=== PATIENT | male | born 2000 | race African-American/Black ===

== ENCOUNTER 2021-02-25 14:21 | Emergency (ER) | payer OTHER, SELFPAY ==
--- OUTSIDE RECORDS SUMMARY | 2021-02-25 14:29 | XMS REPORT | Continuity of Care Document ---
:2000 Author Organization [facility] t Address [address] [place] [address] Care Team Providers Name Role Phone NO Primary Care Physician Unavailable Zhao Attending Clinician [phone] Vianey Attending Clinician Unavailable Gita Attending Clinician [phone] Constantin Attending Clinician [phone] Mina Attending Clinician Unavailable Lorena Attending Clinician [phone] Oskar Attending Clinician Unavailable Hitesh Attending Clinician Unavailable Zain Attending Clinician [phone] Beck Attending Clinician Unavailable Jono Attending Clinician Unavailable Sharonda Attending Clinician Unavailable Paul KULKARNI Attending Clinician Unavailable Zhao Unavailable [phone] Gita Unavailable [phone] Zain Unavailable [id number] Payers Payer Name Policy Type Policy Number Effective Date Expiration Date Paul garza Gerardo Ray 11 [id number] 2020 2021 [facility] 0- 100% 00:00:00 00:00:00 Community Health Problems Condition Condition Condition Status Onset Resolution Last Treating Co mments Source Name Details Category Date Date Treatment Clinician Date Screening Condition Active 2020-12-17 Dante Churchill for std 12-17 12:11:47 Ralphelia Commun i 00:00: ty 00 Health Anal pain Condition Active 2020-12-17 Dante Churchill - 20:06:07 Chiquis Marcumi 00:00: ty 00 Health Overweight Condition Active 2020-12-17 ZhaoDante (BMI 5-10 20:10:48 [facility] 00:00: ty 00 Health Anal Condition Active 2020-12-17 Zhao Leg acy ulcers 5-10 20:10:48 Arbelia Communi 00:00: ty 00 Health Immunizati Condition Active 2020-10-03 Joey Pelayoacy on 10-03 19:01:10 Rebeca Commu ni counseling 00:00: ty 00 Health Lymphadeno Condition Active 2020-10-05 [place], [facility] adali 10-03 05:26:41 Rebeca Commu ni 00:00: ty 00 Health HIV Condition Active 2020-08-20 Tiffanie Pittman gacy positive 08-20 15:21:12 Shima Commu ni 00:00: ty 00 Health Macular Condition Active 2020-08-20 Keyanna Pittman egacy erythemato 08-15 11:59:45 Shima gutiérrezi us rash 00:00: ty 00 Health Proctitis Problem Active [facility] St [facility] Vomiting Problem Active [facility] Lymphadeno Problem Active [facility] S t. adali [facility] Dermatitis Problem Active [facility] S t. medicament [facility] Allergies, Adverse Reactions, Alerts Allergy Allergy Status Severity Reaction(s) Onset Inactive Treating Comm ents Source Name Type Date Date Clinician AMOXICIL Drug Active High Dante MONI allergy Criticali 1-15 Commun i (disorde ty 00:00: ty r) 00 Health amoxicil DA Active [place] 2019-08 [facility] moni 2-29 [place] [facility] e [facility] No Known DA Active U 2019-08 [facility] Allergie 2-28 [place] [facility] 00:[facility] e 00 [facility] Social History Social Habit Start Date Stop Date Quantity Comments Source time of call 2020-12-20 2020-12-20 12/20/2020 12:17 [facility] 12:17:27 12:17:27 PM Health albumin, serum 2020-12-19 2020-12-19 4.4 g/dL [facility]unity 10:32:00 10:32:00 Health if the patient is 2020-12-17 2020-12-17 No [facility] using/has used a 11:26:26 11:26:26 Health vaping item, Current, Former, Never Used, Not asked drug use 2020-12-17 2020-12-17 Never [facility] ty 11:26:26 11:26:26 Health alcohol use 2020-12-17 2020-12-17 Currently [facility] ity 11:26:26 11:26:26 Health passive cigarette 2020-12-17 2020-12-17 No [facility] smoke exposure 11:26:26 11:26:26 Health social history 2020-12-17 2020-12-17 reviewed today [facility] reviewed E&M 11:26:26 11:26:26 Health social history E&M 2020-12-17 2020-12-17 Single. Not [facility] 11:26:26 11:26:26 homeless. Born Health in [facility]. City: [place] . State: [place]. 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 Highest education level: high school graduate. Sex at : Male. Sexual orientation: River. Gender identity: Male. Gender of partner(s): Male. Age of first sexual intercourse: 18. Sexually Active: Yes. sexual orientation 2020-12-17 2020-12-17 River [facility] 11:26:26 11:26:26 Health assessment of health 2020-12-17 2020-12-17 Adequate Lega cy Community literacy (NCQA [facility] 11:26:26 11:26:26 [facility] 2014 Standards, 3C10) PHQ2 Questionairre 2020-12-17 2020-12-17 [facility] Score 11:26:26 11:26:26 Health is there any chance 2020-10-03 2020-10-03 No [facility] Community that you could be 18:03:41 18:03:41 Health ? 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 Dante C ommunity 10:15:42 10:15:42 Health sex at 2020-08-24 2020-08-24 Male [facility] nity 10:15:42 10:15:42 Health patient considered to 2020-08-24 2020-08-24 No Leg acy Community be homeless 10:15:42 10:15:42 Health Sex Assigned At [birth year] [facility] Smoking Status Start Date Stop Date Source [facility] smoked tobacco (finding[facility] Medications Ordered Filled Start Stop Current Ordering Indication Dosage Frequency Signature Comments Components Source Medication Medication Date Date Medication? Clinician (SIG) Name Name VALTREX Yes Arbelia 1 3xD 1 tablet Leg acy (VALACYCLOV 5-14 Zhao by mouth 3 C ommuni IR HCL) 1 00:00: times ty GM TABS 00 daily for Health 7 days VALTREX Yes Arbelia 1 3xD 1 tablet Leg [facility] (VALACYCLOV 5-10 Zhao by mouth 3 C ommuni IR HCL) 1 00:00: times ty GM TABS 00 daily for Health 7 days (DOXYCYCLIN Yes Arbelia 1 2xD 1 capsule [facility] E 5-10 Zhao by mouth Communi MONOHYDRATE 00:00: twice ty ) 100 MG 00 daily x 7 Health CAPS days BIKTARVY Yes Rebeca 1{Table 1xD Take 1 tab [facility] (BICTEGRAVI 1-15 [place] t} by mouth Co mmuni R-EMTRICITA 00:00: daily ty B-TENOFOV) 00 Health 50-200-25 MG TABS (HYDROXYZIN 2020- No Shima 1{Table 3xD 1 by mouth [facility] E HCL) 50 1-06 02-05 Zain t} three Commun i MG TABS 00:00: 00:00 times a ty 00 :00 day as Health needed for itching Doxycycline Doxycycline 2019-08 Yes [address] [facility] Hyclate Hyclate 2-08 Day - 04:06: Patient 00 [facility] Immunizations Ordered Immunization Filled Immunization Date Status Commen ts Source Name Name Prevnar 13 IM 2020-10-03 Completed [facility] unity [id number] 19:17:00 Health Engerix-B IM 20 2020-10-03 Completed [facility] mmunity MCG/ML 19:15:00 [id number] Vital Signs Vital Name Observation Time Observation Value Comments Source height in 2020-12-17 11:26:26 170.18 cm [facility] centimeters E&M Health height percentile 2020-12-17 11:26:26 18 [facility] weight E&M 2020-12-17 11:26:26 174 [lb_av] On license of [facility] weight percentile 2020-12-17 11:26:26 76 [facility] weight in kilograms 2020-12-17 11:26:26 79.09 kg L [facility] E& Health oxygen saturation, 2020-12-17 11:26:26 96 /min [facility] oximetry Health blood pressure, 2020-12-17 11:26:26 53 mm[Hg] [facility] diastolic [facility] blood pressure, 2020-12-17 11:26:26 125 mm[Hg] [facility] systolic Health respiratory rate E&M 2020-12-17 11:26:26 16 /min [facility] pulse rate 2020-12-17 11:26:26 70 /min On license of [facility] temperature E&M 2020-12-17 11:26:26 98.0 [degF] [facility] 2020-12-17 11:26:26 oral [facility] temperature site 2020-10-03 18:03:41 oral [facility] temperature E&M 2020-10-03 18:03:41 97.0 [degF] [facility] blood pressure, 2020-10-03 18:03:41 69 mm[Hg] Legac [facility] diastolic Health blood pressure, 2020-10-03 18:03:41 123 mm[Hg] [facility] systolic Health pulse rate 2020-10-03 18:03:41 76 /min On license of [facility] oxygen saturation, 2020-10-03 18:03:41 96 /min [facility] Health weight E&M 2020-10-03 18:03:41 172.50 [lb_av] [facility] weight percentile 2020-10-03 18:03:41 76 [facility] weight in kilograms 2020-10-03 18:03:41 78.41 kg L [facility] Health height in 2020-10-03 18:03:41 170.18 [facility] centimeters E& Health height percentile 2020-10-03 18:03:41 18 Leg [facility] height in 2020-08-24 10:15:42 170.18 [facility] centimeters E Health height percentile 2020-08-24 10:15:42 18 Leg [facility] oxygen saturation, 2020-08-24 10:15:42 98 /min [facility] Health blood pressure, 2020-08-24 10:15:42 78 mm[Hg] [facility] diastolic Health blood pressure, 2020-08-24 10:15:42 125 mm[Hg] Leg[facility] systolic Health pulse rate 2020-08-24 10:15:42 74 /min [facility] Health temperature E&M 2020-08-24 10:15:42 98.0 [degF] Leg[facility] Health weight E&M 2020-08-24 10:15:42 159 [lb_av] [facility] weight percentile 2020-08-24 10:15:42 60 Leg [facility] weight in kilograms 2020-08-24 10:15:42 72.27 kg L [facility] temperature site 2020-08-24 10:15:42 oral [facility] oxygen saturation, 2020-08-20 11:42:10 98 /min [facility] Health blood pressure, 2020-08-20 11:42:10 77 mm[Hg] Leg[facility] diastolic Health blood pressure, 2020-08-20 11:42:10 123 mm[Hg] Leg[facility] systolic Health respiratory rate E&M 2020-08-20 11:42:10 16 /min [facility] Health pulse rate 2020-08-20 11:42:10 90 /min [facility] Health temperature E&M 2020-08-20 11:42:10 98.3 [degF] Leg[facility] Health weight E&M 2020-08-20 11:42:10 157 [lb_av] [facility] Health weight percentile 2020-08-20 11:42:10 57 Leg [facility] weight in kilograms 2020-08-20 11:42:10 71.36 kg L [facility] height in 2020-08-20 11:42:10 170.18 cm [facility] centimeters [facility] height percentile 2020-08-20 11:42:10 18 Leg [facility] temperature site 2020-08-20 11:42:10 oral Lega cy [facility] oxygen saturation, 2020-08-15 15:03:43 97 /min [facility] oximetry Health respiratory rate E&M 2020-08-15 15:03:43 18 /min [facility] pulse rate 2020-08-15 15:03:43 109 /min [facility] temperature E&M 2020-08-15 15:03:43 98.8 [degF] [facility] weight E&M 2020-08-15 15:03:43 150 [lb_av] [facility] weight percentile 2020-08-15 15:03:43 45 Leg [facility] weight in kilograms 2020-08-15 15:03:43 68.18 kg L [facility] temperature site 2020-08-15 15:03:43 oral Lega cy [facility] Oxygen saturation by 2020-08-07 11:07:00 99 /min [facility] - Pulse oximetry Patients [facility] Weight 2020-08-07 11:07:00 160 [lb_av] [facility] - Patients [facility] BMI (Body Mass 2020-08-07 11:07:00 24.3 kg/m2 [facility] - Index) Patients [facility] Oxygen saturation by 2020-07-27 11:06:00 100 /min [facility] - Pulse oximetry Patients [facility] Weight 2020-07-27 11:06:00 160 [lb_av] [facility] BMI (Body Mass 2020-07-27 11:06:00 24.3 kg/m2 [facility] - Index) Patients [facility] Body Temperature 2020-07-17 03:58:00 99.0 [degF] [facility] - Patients [facility] Heart Rate 2020-07-17 03:58:00 67 /min [facility] Patients [facility] Respiratory rate 2020-07-17 03:58:00 19 /min [facility] - Patients [facility] BP Systolic 2020-07-17 03:58:00 106 mm[Hg] [facility] - Patients [facility] BP Diastolic 2020-07-17 03:58:00 46 mm[Hg] [facility] - Patients [facility] Oxygen saturation by 2020-07-17 03:58:00 98 /min [facility] - Pulse oximetry Patients [facility] Weight 2020-07-17 00:59:00 160 [lb_av] [facility] BMI (Body Mass 2020-07-17 00:59:00 24.3 kg/m2 [facility] - Index) Patients [facility] Procedures Procedure Date / Time Performing Clinician Source Performed Injection, ceftriaxone 2020-12-17 12:12:44 Chiquis Churchill y [facility] sodium, per 500 mg Health Venipuncture 2020-12-17 12:09:04 Chiquis Churchill [facility] 2020-10-26 09:41:46 Ender Francis [place] m[place]ity Education/Supportive Health Counseling Primary Care Medical 2020-10-10 14:36:52 Traci Krishnamurthy [facility] Medical 2020-10-10 09:08:16 Traci Krishnamurthy [facility] Primary Care - Service 2020-10-06 14:08:33 Traci Krishnamurthy y Community Planning [facility] Primary Care - 2020-10-06 14:08:33 Traci Krishnamurthy [facility] Health [facility] Primary Care Medical 2020-10-06 14:08:33 [facility] Case Management [facility] Addl Vx - Ix admin via 2020-10-03 19:16:13 Rebeca Pelayo ID IM or jet injects Health without counseling by physician Prevnar 13 Intramuscular 2020-10-03 19:16:13 Rebeca Pelayo evelia [facility] Suspension Health First Vx - Ix admin via 2020-10-03 19:16:13 JacquesivoryRebeca burnette Tiffanie martin [facility] ID IM or jet injects Health without counseling by physician Engerix-B Injection 2020-10-03 19:13:17 Rebeca Pelayo [facility] Suspension 20 MCG/ML Health Vaccines Ordered - Print 2020-10-03 18:53:47 Rebeca Pelayo evelia [facility] Consent/Declination Health Forms Vision 2020-10-03 18:52:19 Rebeca Pelayo Com munity Health Dental - Internal 2020-10-03 18:51:33 Rebeca Pelayo C ommunity [facility] Health 2020-10-03 08:48:25 Ender Francis [place] mmunity Education/Supportive Health Counseling Primary Care Medical 2020-10-02 09:45:[address] [facility] Primary Care Medical 2020-09-28 14:58:33 Funmilayo Landrum [facility] Case [facility] Health Meeting with Case Manger 2020-09-26 17:09:57 [facility] 2020-08-24 12:30:21 Provider, [facility] Education/Supportive Health Services Health Counseling Venipuncture 2020-08-24 10:52:59 Chiquis Churchill [facility] Health 2020-08-21 15:57:45 Ender Francis [facility] Education/Supportive Health Counseling Health 2020-08-21 09:21:39 Ender Francis [facility] Education/Supportive Health Counseling HIV Navigation 2020-08-20 15:17:10 Shima Pittman [facility] Venipuncture 2020-08-15 15:53:58 Shima Pittman [facility] Computed tomography of 2020-07-17 00:00:00 RENITA Maradiaga - abdomen and pelvis with Patients Medical contrast Center Plan of Care Planned Activity Planned Date Details Comments Source Instructions Allergic Reaction [facility] Encounters Start End Encounter Admission Attending Care Care Encounter Source Date/Time Date/Time Type Type Clinicians Facility Department ID 2020-12-17 2020-12-17 Office Chiquis Churchill [facility] [id number] [facility] 00:00:00 00:00:00 Visit Valentine Winters [id number] [facility] 2020-10-03 2020-10-05 Office Rebeca Pelayo [facility] [id number] [facility] 00:00:00 00:00:00 [facility] [id number] [facility] Gia Schmitt 2020-08-24 2020-08-24 Office Chiquis Churchill [facility] [phone] [facility] 00:00:00 00:00:00 Visit Sujit Proctor [id number] [facility] 2020-08-20 2020-08-20 Office Shima Pittman [facility] [id number] [facility] 00:00:00 [facility]00[facility] 11 [facility] Nirmal [facility] 2020-08-15 2020-08-17 Office Shima Pittman [facility] [id number] [facility] 00:00:00 00:00:00 Visit Ivonne Mcdonough [address] [facility] 2020-08-07 2020-08-07 Departed [facility] [id number] 11:23:00 12:06:00 Emergency Patients 87 [facility] - Room [facility] 2020-07-27 2020-07-27 Departed [facility] [id number] 10:58:00 11:20:00 Emergency Patients 91 [facility] - Room [facility] 2020-07-17 2020-07-17 [facility] [id number] 01:14:00 04:19:00 Emergency AMBICA Patients 49 [facility] - Room [facility] Results Test Description Test Time Test Comments Results Result Comments Source sodium, serum 2020-12-19 10:32:00 Test Item Value Reference Range Interpretation Comme nts sodium, serum (test code = 2951-2) 139 mmol/L 134-144 [facility] nitrogen/creatinine ratio, [id number] 10:32:00 Test Item Value Reference Range Interpretation Comments urea nitrogen/creatinine 12 (unknown unit) 9-20 ratio, serum (test code = 3097-3) [facility]axhaweGFR if [id number] 10:32:00 Test Item Value Reference Range Interpretation Comments eGFR if 120 mL/min/{1.73 m2} >59 (test code = 46965-2) [facility]haw[facility] Glomerular Filtration Rate (calc)2020-12-19 10:32:00 Test Item Value Reference Range Interpretation Comments Estimated Glomerular 104 mL/min/{1.73 m2} >59 Filtration Rate (calc) (test code = 68630-9) [facility]creatinine, [id number] 10:32:00 Test Item Value Reference Range Interpretation Comments creatinine, serum (test code = 1.04 mg/dL 0.76-1.27 2160-0) [facility] nitrogen, [id number] 10:32:00 Test Item Value Reference Range Interpretation Comments urea nitrogen, blood (test code = 12 mg/dL 6-20 3094-0) [facility] glucose, [id number] 10:32:00 Test Item Value Reference Range Interpretation Comments blood glucose, random (test code = 89 mg/dL 65-99 2339-0) [facility]hawimmature granulocytes, percentage of total cells, blood 2020-12-19 10:32:00 Test Item Value Reference Range Interpretation Comments immature granulocytes, percentage of 0 % total cells, blood (test code = 33930-7) [facility]hawbasophil count, [id number] 10:32:00 Test Item Value Reference Range Interpretation Comments basophil count, absolute (test 0.0 x10E3/uL 0.0-0.2 code = 88938-6) [facility]axhawEosinophil Absolute [id number] 10:32:00 Test Item Value Reference Range Interpretation Comments Eosinophil Absolute Count (test 0.2 X10E3/UL 0.0-0.4 code = 25038-8) [facility] Healthmonocyte count, blood, [id number] 10:32:00 Test Item Value Reference Range Interpretation Comments monocyte count, blood, automated 0.4 X10E3/UL 0.1-0.9 (test code = 742-7) [facility]haw[facility]ocyte count, blood, [id number] 10:32:00 Test Item Value Reference Range Interpretation Comments lymphocyte count, blood, 1.1 X10E3/UL 0.7-3.1 automated (test code = 731-0) [facility]haw[facility] [id number] 10:32:00 Test Item Value Reference Range Interpretation Comments Absolute Neutrophils (test code 2.8 X10E3/UL 1.4-7.0 = 39707-5) [facility]haw[facility]ophils as percent of blood [id number] 10:32:00 Test Item Value Reference Range Interpretation Comments basophils as percent of blood 0 % leukocytes (test code = 707-0) [facility]ophils as percent of blood [id number] 10:32:00 Test Item Value Reference Range Interpretation Comments eosinophils as percent of blood 3 % leukocytes (test code = 713-8) [facility] Healthmonocytes as percent of blood [id number] 10:32:00 Test Item Value Reference Range Interpretation Comments monocytes as percent of blood 9 % leukocytes (test code = 5905-5) [facility]haw[facility]ocytes as percent of blood [id number] 10:32:00 Test Item Value Reference Range Interpretation Comments lymphocytes as percent of blood 25 % leukocytes (test code = 736-9) [facility]hawneutrophils as percent of blood [id number] 10:32:00 Test Item Value Reference Range Interpretation Comments neutrophils as percent of blood 63 % leukocytes (test code = 770-8) [facility]axhawplatelet [id number] 10:32:00 Test Item Value Reference Range Interpretation Comments platelet count (test code = 208 X10E3/UL 150-450 777-3) [facility]hawred blood cell distribution [id number] 10:32:00 Test Item Value Reference Range Interpretation Comments red blood cell distribution width 12.8 % 11.6-15.4 (test code = 788-0) [facility] corpuscular hemoglobin concentration, [id number] 10:32:00 Test Item Value Reference Range Interpretation Comments mean corpuscular hemoglobin 34.9 G/DL 31.5-35.7 concentration, RBC (test code = 786-4) [facility] corpuscular hemoglobin, [id number] 10:32:00 Test Item Value Reference Range Interpretation Comments mean corpuscular hemoglobin, RBC 31.6 pg 26.6-33.0 (test code = 785-6) [facility] corpuscular volume, [id number] 10:32:00 Test Item Value Reference Range Interpretation Comments mean corpuscular volume, RBC (test code 91 fL 79-97 = 787-2) [facility]haw[facility]ocrit, [id number] 10:32:00 Test Item Value Reference Range Interpretation Comments hematocrit, blood (test code = 4544-3) 45.5 % 37.5-51.0 [facility]hawhemoglobin, [id number] 10:32:00 Test Item Value Reference Range Interpretation Comments hemoglobin, blood (test code = 15.9 g/dL 13.0-17.7 718-7) [facility]hawerythrocyte (RBC) [id number] 10:32:00 Test Item Value Reference Range Interpretation Comments erythrocyte (RBC) count (test 5.03 X10E6/UL 4.14-5.80 code = 789-8) [facility]hawleukocyte count, [id number] 10:32:00 Test Item Value Reference Range Interpretation Comments leukocyte count, blood (test 4.5 X10E3/UL 3.4-10.8 code = 6690-2) [facility]axhawCD4/CD8 [id number] 10:32:00 Test Item Value Reference Range Interpretation Comments CD4/CD8 ratio (test code 1.09 (unknown unit) 0.92-3.72 = 79255) [facility]axhawT-suppressor cells (CD8) as percent of blood lymphocytes 2020-12-19 10:32:00 Test Item Value Reference Range Interpretation Comments T-suppressor cells (CD8) as percent of 35.2 % 12.0-35.5 blood lymphocytes (test code = 3517) [facility] Healthabsolute [id number] 10:32:00 Test Item Value Reference Range Interpretation Comments absolute CD8 (test code = 387 (unknown unit) [phone]) [facility]hawT-helper cells (CD4) as percent of blood lymphocytes 2020-12-19 10:32:00 Test Item Value Reference Range Interpretation Comments T-helper cells (CD4) as percent of 38.5 % 30.8-58.5 blood lymphocytes (test code = 8123-2) [facility]hawT-helper cells (CD4) [id number] 10:32:00 Test Item Value Reference Range Interpretation Comments T-helper cells (CD4) count (test code 424 /UL 359-4365 = 61336-5) [facility]axhawhepatitis B surface [id number] 10:32:00 Test Item Value Reference Range Interpretation Comments hepatitis B surface antigen (test Negative Negative code = 79) Count Includes The [facility] [facility], pcife2507-16-26 10:32:00 Test Item Value Reference Range Interpretation Comments hepatitis C antibody, serum (test code <0.1 0.0-0.9 = 5199-5) [facility] reagin antibody, [id number] 10:32:00 Test Item Value Reference Range Interpretation Comments rapid plasma reagin antibody, Non Reactive Non Reactive serum (test code = 5291-0) [facility]hawHIV-1RNA, serum, by PCR, whqezfqxzydo1585-79-96 10:32:00 Test Item Value Reference Range Interpretation Comments HIV-1RNA, serum, by PCR, quantitative 140 /mL (test code = 92618) [facility]hawLDL cholesterol, zrxnf1268-97-06 10:32:00 Test Item Value Reference Range Interpretation Comments LDL cholesterol, serum (test code = 88 mg/dL 0-109 2088-1) [facility] [place] low density axulhphbofoi6185-19-05 10:32:00 Test Item Value Reference Range Interpretation Comments very low density lipoproteins (test 12 mg/dL 5-40 code = 2091-7) [facility]HDL cholesterol, oewjg1164-21-21 10:32:00 Test Item Value Reference Range Interpretation Comments HDL cholesterol, serum (test code = 47 mg/dL >39 2084-9) [facility]lyceride, serum, ojvousk0614-91-18 10:32:00 Test Item Value Reference Range Interpretation Comments triglyceride, serum, fasting (test 60 mg/dL 0-89 code = 2571-8) [facility]cholesterol, bgsbt3325-41-28 10:32:00 Test Item Value Reference Range Interpretation Comments cholesterol, serum (test code = 147 mg/dL 445-491 1333-3) [facility] aminotransferase (SGPT), iwstf0561-32-75 10:32:00 Test Item Value Reference Range Interpretation Comments alanine aminotransferase (SGPT), serum 12 1/L 0-44 (test code = 1742-6) [facility]hawaspartate aminotransferase (SGOT), forly2221-86-13 10:32:00 Test Item Value Reference Range Interpretation Comments aspartate aminotransferase (SGOT), 16 1/L 0-40 serum (test code = 1920-8) [facility]alkaline phosphatase, vmpfo5982-40-45 10:32:00 Test Item Value Reference Range Interpretation Comments alkaline phosphatase, serum (test code 73 1/L 39-117 = 1783-0) [facility]bilirubin, serum, reezc4615-30-86 10:32:00 Test Item Value Reference Range Interpretation Comments bilirubin, serum, total (test code 0.5 mg/dL 0.0-1.2 = 1974-2) [facility]albumin/globulin ratio, kipqa8966-59-57 10:32:00 Test Item Value Reference Range Interpretation Comments albumin/globulin ratio, 1.6 (unknown unit) 1.2-2.2 serum (test code = 1759-0) [facility] Healthglobulin, suqnf1988-78-84 10:32:00 Test Item Value Reference Range Interpretation Comments globulin, serum (test code 2.7 (unknown unit) 1.5-4.5 = 2336-6) [facility]hawalbumin, xvbos3140-19-03 10:32:00 Test Item Value Reference Range Interpretation Comments albumin, serum (test code = 1751-7) 4.4 g/dL 4.1-5.2 [facility] Healthprotein, total, btbje6096-44-27 10:32:00 Test Item Value Reference Range Interpretation Comments protein, total, serum (test code = 7.1 g/dL 6.0-8.5 2885-2) [facility]calcium, cttyr6077-53-25 10:32:00 Test Item Value Reference Range Interpretation Comments calcium, serum (test code = 2000-03) 9.6 mg/dL 8.7-10.2 [facility]hawcarbon dioxide, venous othhk8809-22-16 10:32:00 Test Item Value Reference Range Interpretation Comments carbon dioxide, venous blood (test 24 mmol/L - code = 2026-1) [facility]hawchloride, tycxh7267-11-99 10:32:00 Test Item Value Reference Range Interpretation Comments chloride, serum (test code = 100 mmol/L 96-106 5-0) [facility]hawpotassium, gcyqi6788-31-10 10:32:00 Test Item Value Reference Range Interpretation Comments potassium, serum (test code = 4.4 mmol/L 3.5-5.2 2823-3) [facility]hawrapid plasma reagin antibody, wwcsj6271-31-08 12:44:00 Test Item Value Reference Range Interpretation Comments rapid plasma reagin antibody, Non Reactive Non Reactive serum (test code = 5291-0) [facility]hawHERPES SIMPLEX VIRUS IDENTIFIED (PT; XXX; QL; )2020-12-17 12:17:00 Test Item Value Reference Range Interpretation Comments HERPES SIMPLEX VIRUS IDENTIFIED (PT; TYP1 A XXX; QL; ) (test code = 3557) [facility]hawNeisseria gonorrhoeae, throat vkmuuvz5199-19-48 12:17:00 Test Item Value Reference Range Interpretation Comments Neisseria gonorrhoeae, throat Negative Negative culture (test code = 3553) [facility]hawGonorrhea Culture Zeuccu9522-80-78 12:17:00 Test Item Value Reference Range Interpretation Comments Gonorrhea Culture Rectum (test code Negative Negative = 36534990) [facility]bilirubin, serum, uojpbp6165-32-72 12:08:00 Test Item Value Reference Range Interpretation Comments bilirubin, serum, direct (test 0.11 mg/dL 0.00-0.40 code = 1967-7) [facility]hawrapid plasma reagin antibody, ntwsi5876-10-42 12:08:00 Test Item Value Reference Range Interpretation Comments rapid plasma reagin antibody, Non Reactive Non Reactive serum (test code = 5291-0) [facility]hawhepatitis C antibody, hverk7548-59-42 12:08:00 Test Item Value Reference Range Interpretation Comments hepatitis C antibody, serum (test code <0.1 0.0-0.9 = 5199-5) [facility]hawQuantiferon Gold TB blood test for tuberculosis screening 2020-08-24 12:08:00 Test Item Value Reference Range Interpretation Comments Quantiferon Gold TB blood test for Negative Negative tuberculosis screening (test code = 12794-6) [facility]hawcreatinine, random, chktf7306-54-84 12:08:00 Test Item Value Reference Range Interpretation Comments creatinine, random, urine (test 88.3 mg/dL code = 2161-8) [facility]hawLDL cholesterol, nxlgm3458-44-80 12:08:00 Test Item Value Reference Range Interpretation Comments LDL cholesterol, serum (test code = 87 mg/dL 0-109 2088-1) [facility]very low density zqzedbqrprkp2735-05-97 12:08:00 Test Item Value Reference Range Interpretation Comments very low density lipoproteins (test 10 mg/dL 5-40 code = 2090-7) [facility]hawHDL cholesterol, upagp1211-05-52 12:08:00 Test Item Value Reference Range Interpretation Comments HDL cholesterol, serum (test code = 49 mg/dL >39 2084-9) [facility]hawtriglyceride, serum, abovhap2573-29-38 12:08:00 Test Item Value Reference Range Interpretation Comments triglyceride, serum, fasting (test 47 mg/dL 0-89 code = 2571-8) [facility]cholesterol, jmojm0549-13-72 12:08:00 Test Item Value Reference Range Interpretation Comments cholesterol, serum (test code = 146 mg/dL 035-025 3626-3) [facility]bacteria, urine lwqbhnydnr5209-98-03 12:08:00 Test Item Value Reference Range Interpretation Comments bacteria, urine microscopy (test None seen None seen/Few code = 5769-5) [facility]hawmucus on toevmzvejr7573-05-57 12:08:00 Test Item Value Reference Range Interpretation Comments mucus on urinalysis (test code = Present 8247-9) [facility]hawepithelial cells, xbzaf0451-39-10 12:08:00 Test Item Value Reference Range Interpretation Comments epithelial cells, urine (test code = 0-10 0-10 5787-7) [facility]hawRBC, Yukpn1931-89-54 12:08:00 Test Item Value Reference Range Interpretation Comments RBC, Urine (test code = 36044-5) 0-2 /hpf 0-2 [facility]hawurinalysis, microscopic irayjugbdns6470-56-82 12:08:00 Test Item Value Reference Range Interpretation Comments urinalysis, microscopic See below: examination (test code = 17236-1) [facility]hawnitrate, kijci3211-93-59 12:08:00 Test Item Value Reference Range Interpretation Comments nitrate, urine (test code = 98278-5) Negative Negative [facility]hawurobilinogen, urine, semiquantitative (dipstick) 2020-08-24 12:08:00 Test Item Value Reference Range Interpretation Comments urobilinogen, urine, 0.2 (unknown 0.2-1.0 semiquantitative (dipstick) unit) (test code = 5818-0) [facility]bilirubin, yldvc8743-28-92 12:08:00 Test Item Value Reference Range Interpretation Comments bilirubin, urine (test code = Negative Negative 5770-3) [facility]hawketones, urine, by test rlhvy3338-69-25 12:08:00 Test Item Value Reference Range Interpretation Comments ketones, urine, by test strip (test Negative Negative code = 5797-6) [facility]glucose, urine, lbazdzocutknmivi6443-25-29 12:08:00 Test Item Value Reference Range Interpretation Comments glucose, urine, semiquantitative Negative Negative (test code = 5792-7) [facility] Healthprotein, urine, semiquantitative (dipstick)2020-08-24 12:08:00 Test Item Value Reference Range Interpretation Comments protein, urine, 6.5 (unknown semiquantitative (dipstick) unit) (test code = 1753-3) [facility]hawleukocyte esterase, urine, by buyfgtvc7670-03-03 12:08:00 Test Item Value Reference Range Interpretation Comments leukocyte esterase, urine, by dipstick 1+ Negative A (test code = 5799-2) [facility]hawappearance, snbfg8513-51-45 12:08:00 Test Item Value Reference Range Interpretation Comments appearance, urine (test code = 5767-9) Clear Clear [facility]hawurine wdqys2815-89-28 12:08:00 Test Item Value Reference Range Interpretation Comments urine color (test code = 5778-6) Yellow Yellow [facility]hawpH, urine, lywjzcvbsaqbijms3178-71-01 12:08:00 Test Item Value Reference Range Interpretation Comments pH, urine, semiquantitative 6.5 (unknown 5.0-7.5 (test code = 5803-2) unit) [facility]hawspecific gravity, body chloy6279-54-39 12:08:00 Test Item Value Reference Range Interpretation Comments specific gravity, body 1.022 (unknown unit) 1.005-1.030 fluid (test code = 2964-5) [facility]hawalanine aminotransferase (SGPT), vclvf6337-10-60 12:08:00 Test Item Value Reference Range Interpretation Comments alanine aminotransferase (SGPT), serum 21 1/L 0-44 (test code = 1742-6) [facility]hawaspartate aminotransferase (SGOT), wmquy1889-30-23 12:08:00 Test Item Value Reference Range Interpretation Comments aspartate aminotransferase (SGOT), 20 1/L 0-40 serum (test code = 1920-8) [facility]hawalkaline phosphatase, glxel4147-55-25 12:08:00 Test Item Value Reference Range Interpretation Comments alkaline phosphatase, serum (test code 57 1/L 39-117 = 1783-0) [facility]bilirubin, serum, lcncn2012-43-28 12:08:00 Test Item Value Reference Range Interpretation Comments bilirubin, serum, total (test code 0.3 mg/dL 0.0-1.2 = 1975-2) [facility]hawalbumin/globulin ratio, pactt4135-69-66 12:08:00 Test Item Value Reference Range Interpretation Comments albumin/globulin ratio, 1.8 (unknown unit) 1.2-2.2 serum (test code = 1759-0) [facility]hawglobulin, xkwks1950-45-71 12:08:00 Test Item Value Reference Range Interpretation Comments globulin, serum (test code 2.6 (unknown unit) 1.5-4.5 = 2336-6) [facility] Healthalbumin, sswvr3842-66-12 12:08:00 Test Item Value Reference Range Interpretation Comments albumin, serum (test code = 1751-7) 4.7 g/dL 4.1-5.2 [facility] Healthprotein, total, ushqk2420-74-18 12:08:00 Test Item Value Reference Range Interpretation Comments protein, total, serum (test code = 7.3 g/dL 6.0-8.5 2885-2) [facility]hawcalcium, hwjdk1055-91-52 12:08:00 Test Item Value Reference Range Interpretation Comments calcium, serum (test code = 1999-8) 9.4 mg/dL 8.7-10.2 [facility]hawcarbon dioxide, venous oevgv1430-19-23 12:08:00 Test Item Value Reference Range Interpretation Comments carbon dioxide, venous blood (test 26 mmol/L -29 code = 2027-1) [facility]hawchloride, hktdh9640-91-12 12:08:00 Test Item Value Reference Range Interpretation Comments chloride, serum (test code = 100 mmol/L 96-106 5-0) [facility]hawpotassium, duhpx2246-03-86 12:08:00 Test Item Value Reference Range Interpretation Comments potassium, serum (test code = 4.2 mmol/L 3.5-5.2 2823-3) [facility]hawsodium, xfujm8738-20-33 12:08:00 Test Item Value Reference Range Interpretation Comments sodium, serum (test code = 2951-2) 140 mmol/L 134-144 [facility]hawurea nitrogen/creatinine ratio, gslhz3063-81-33 12:08:00 Test Item Value Reference Range Interpretation Comments urea nitrogen/creatinine 20 (unknown unit) 9-20 ratio, serum (test code = 3097-3) [facility] HealtheGFR if Mpnrrmus5079-24-13 12:08:00 Test Item Value Reference Range Interpretation Comments eGFR if 153 mL/min/{1.73 m2} >59 (test code = 28642-2) [facility]axhawEstimated Glomerular Filtration Rate (calc)2020-08-24 12:08:00 Test Item Value Reference Range Interpretation Comments Estimated Glomerular 132 mL/min/{1.73 m2} >59 Filtration Rate (calc) (test code = 69592-2) [facility]hawcreatinine, acfbr2339-06-36 12:08:00 Test Item Value Reference Range Interpretation Comments creatinine, serum (test code = 0.76 mg/dL 0.76-1.27 2160-0) [facility]hawurea nitrogen, lgszc8688-16-31 12:08:00 Test Item Value Reference Range Interpretation Comments urea nitrogen, blood (test code = 15 mg/dL 6-20 3094-0) [facility]hawblood glucose, fwqsmi7411-53-03 12:08:00 Test Item Value Reference Range Interpretation Comments blood glucose, random (test code = 86 mg/dL 65-99 2339-0) [facility]hawimmature granulocytes, percentage of total cells, blood 2020-08-24 12:08:00 Test Item Value Reference Range Interpretation Comments immature granulocytes, percentage of 0 % total cells, blood (test code = 68832-7) [facility]hawbasophil count, hmmqiuof8492-53-38 12:08:00 Test Item Value Reference Range Interpretation Comments basophil count, absolute (test 0.1 x10E3/uL 0.0-0.2 code = 62147-7) [facility]hawEosinophil Absolute Apxqk5623-85-49 12:08:00 Test Item Value Reference Range Interpretation Comments Eosinophil Absolute Count (test 0.1 X10E3/UL 0.0-0.4 code = 88538-1) [facility]hawmonocyte count, blood, rguheaycv2621-40-59 12:08:00 Test Item Value Reference Range Interpretation Comments monocyte count, blood, automated 0.6 X10E3/UL 0.1-0.9 (test code = 742-7) [facility]hawlymphocyte count, blood, qidcbglqd3349-82-80 12:08:00 Test Item Value Reference Range Interpretation Comments lymphocyte count, blood, 1.7 X10E3/UL 0.7-3.1 automated (test code = 731-0) [facility]hawAbsolute Nwdobtuanmk3010-67-00 12:08:00 Test Item Value Reference Range Interpretation Comments Absolute Neutrophils (test code 3.6 X10E3/UL 1.4-7.0 = 83750-1) [facility] Healthbasophils as percent of blood obmfqpjlnj8041-72-96 12:08:00 Test Item Value Reference Range Interpretation Comments basophils as percent of blood 1 % leukocytes (test code = 707-0) [facility]weosinophils as percent of blood gunjeixtwr8339-87-66 12:08:00 Test Item Value Reference Range Interpretation Comments eosinophils as percent of blood 2 % leukocytes (test code = 713-8) [facility] Healthmonocytes as percent of blood temessqhsc1284-33-25 12:08:00 Test Item Value Reference Range Interpretation Comments monocytes as percent of blood 9 % leukocytes (test code = 5905-5) [facility]hawlymphocytes as percent of blood wnyoeghwou0346-85-84 12:08:00 Test Item Value Reference Range Interpretation Comments lymphocytes as percent of blood 28 % leukocytes (test code = 736-9) [facility]hawneutrophils as percent of blood zngewbyjnf6370-12-58 12:08:00 Test Item Value Reference Range Interpretation Comments neutrophils as percent of blood 60 % leukocytes (test code = 770-8) [facility]axhawplatelet bgege2664-89-75 12:08:00 Test Item Value Reference Range Interpretation Comments platelet count (test code = 163 X10E3/UL 150-450 777-3) [facility]hawred blood cell distribution oyacv6822-43-34 12:08:00 Test Item Value Reference Range Interpretation Comments red blood cell distribution width 12.9 % 11.6-15.4 (test code = 788-0) [facility] corpuscular hemoglobin concentration, UQE0402-96-23 12:08:00 Test Item Value Reference Range Interpretation Comments mean corpuscular hemoglobin 34.0 G/DL 31.5-35.7 concentration, RBC (test code = 786-4) [facility] corpuscular hemoglobin, BZG5569-97-69 12:08:00 Test Item Value Reference Range Interpretation Comments mean corpuscular hemoglobin, RBC 31.3 pg 26.6-33.0 (test code = 785-6) [facility] corpuscular volume, [id number] 12:08:00 Test Item Value Reference Range Interpretation Comments mean corpuscular volume, RBC (test code 92 fL 79-97 = 787-2) [facility]hawhematocrit, ctsgs5868-59-53 12:08:00 Test Item Value Reference Range Interpretation Comments hematocrit, blood (test code = 4544-3) 41.8 % 37.5-51.0 [facility]hawhemoglobin, uwmgf5518-54-78 12:08:00 Test Item Value Reference Range Interpretation Comments hemoglobin, blood (test code = 14.2 g/dL 13.0-17.7 718-7) [facility]hawerythrocyte (RBC) macst5845-88-67 12:08:00 Test Item Value Reference Range Interpretation Comments erythrocyte (RBC) count (test 4.54 X10E6/UL 4.14-5.80 code = 789-8) [facility]hawleukocyte count, qcjis1201-97-13 12:08:00 Test Item Value Reference Range Interpretation Comments leukocyte count, blood (test 6.0 X10E3/UL 3.4-10.8 code = 6690-2) [facility]axhawT-helper cells (CD4) as percent of blood lymphocytes 2020-08-24 12:08:00 Test Item Value Reference Range Interpretation Comments T-helper cells (CD4) as percent of 19.2 % 30.8-58.5 L blood lymphocytes (test code = 8123-2) [facility]axhawT-helper cells (CD4) krewv1296-89-03 12:08:00 Test Item Value Reference Range Interpretation Comments T-helper cells (CD4) count (test code 326 /UL 359-1519 L = 87723-6) [facility]axhawCD4/CD8 ehfeh2834-31-15 12:08:00 Test Item Value Reference Range Interpretation Comments CD4/CD8 ratio (test code 0.28 (unknown unit) 0.92-3.72 L = 39637) [facility]axhawT-suppressor cells (CD8) as percent of blood lymphocytes 2020-08-24 12:08:00 Test Item Value Reference Range Interpretation Comments T-suppressor cells (CD8) as percent of 68.8 % 12.0-35.5 H blood lymphocytes (test code = 3517) [facility]hawabsolute PV10676-87-01 12:08:00 Test Item Value Reference Range Interpretation Comments absolute CD8 (test code = 1170 (unknown unit) 109-897 H 94574) [facility] Healthhepatitis A antibody, ybffc3308-04-49 12:08:00 Test Item Value Reference Range Interpretation Comments hepatitis A antibody, total (test Positive Negative A code = 75) [facility]hawhepatitis B core antibody, hpqcx0114-43-36 12:08:00 Test Item Value Reference Range Interpretation Comments hepatitis B core antibody, total Negative Negative (test code = 77) [facility] hkzpkpm0374-77-71 12:08:00 Test Item Value Reference Range Interpretation Comments hepatitis B surface antigen (test Negative Negative code = 79) [facility]hawHIV-2 antibodies, western bpwp3885-15-07 12:08:00 Test Item Value Reference Range Interpretation Comments HIV-2 antibodies, western blot (test Negative Negative code = 00921) [facility]hawHIV-1/HIV-2 Ab, ulquz1112-29-40 12:08:00 Test Item Value Reference Range Interpretation Comments HIV-1/HIV-2 Ab, serum (test code = Positive Negative A 3390) [facility] (Chemiluminescent Microparticle Immuno Assay) 2020-08-24 12:08:00 Test Item Value Reference Range Interpretation Comments HIV-CMIA (Chemiluminescent Reactive Non Reactive A Microparticle Immuno Assay) (test code = 629043) [facility] [id number] 12:08:00 Test Item Value Reference Range Interpretation Comments human leukocyte antigen B57 (test Negative code = 632904) [facility]hawtoxoplasma gondii antibody, [id number] 12:08:00 Test Item Value Reference Range Interpretation Comments toxoplasma gondii antibody, IgG (test <3.0 0.0-7.1 code = 2430) [facility]hawhepatitis B surface hvlfytgu3917-17-47 12:08:00 Test Item Value Reference Range Interpretation Comments hepatitis B surface antibody Non Reactive (test code = 78) [facility] genotype lrrjft2530-60-16 12:08:00 Test Item Value Reference Range Interpretation Comments HIV genotype result (test code = GENRTI 03088) [facility]HIV[facility]RNA, serum, by PCR, iijpaidzhcxo2853-41-20 12:08:00 Test Item Value Reference Range Interpretation Comments HIV-1RNA, serum, by PCR, 299593 /mL quantitative (test code = 78480) [facility]hawWBC urine on cilnlbdmmh1242-72-20 12:08:00 Test Item Value Reference Range Interpretation Comments WBC urine on microscopy (test code 11-30 /hpf 0-5 A = 1016) [facility]axhawGonorrhea Culture Zcmeel5608-94-71 11:08:00 Test Item Value Reference Range Interpretation Comments Gonorrhea Culture Rectum (test code Negative Negative = 13413934) [facility]hawhepatitis C antibody, vcpjb5838-33-13 16:26:00 Test Item Value Reference Range Interpretation Comments hepatitis C antibody, serum (test code <0.1 0.0-0.9 = 5199-5) [facility]hawrapid plasma reagin antibody, cofoo1235-91-30 16:26:00 Test Item Value Reference Range Interpretation Comments rapid plasma reagin antibody, Non Reactive Non Reactive serum (test code = 5291-0) [facility]hawNeisseria gonorrhoeae DNA jysrg4367-42-89 16:26:00 Test Item Value Reference Range Interpretation Comments Neisseria gonorrhoeae DNA probe Negative Negative (test code = 97693-1) [facility]hawchlamydia DNA jaieh2951-03-12 16:26:00 Test Item Value Reference Range Interpretation Comments chlamydia DNA probe (test code = Negative Negative 54356-5) [facility]hawbacteria, urine mfgjtezjuz2947-03-92 16:26:00 Test Item Value Reference Range Interpretation Comments bacteria, urine microscopy (test None seen None seen/Few code = 5769-5) [facility]hawmucus on ifjqwfuqkh1459-42-73 16:26:00 Test Item Value Reference Range Interpretation Comments mucus on urinalysis (test code = Present 8247-9) [facility]hawepithelial cells, nwoni5225-30-06 16:26:00 Test Item Value Reference Range Interpretation Comments epithelial cells, urine (test code = 0-10 0-10 5787-7) [facility]axhawRBC, Mmsdg6888-03-95 16:26:00 Test Item Value Reference Range Interpretation Comments RBC, Urine (test code = 44086-8) 0-2 /hpf 0-2 [facility]hawurinalysis, microscopic jlkcspqlqdm4405-33-40 16:26:00 Test Item Value Reference Range Interpretation Comments urinalysis, microscopic See below: examination (test code = 04928-0) [facility]axhawnitrate, ovjaw0435-83-13 16:26:00 Test Item Value Reference Range Interpretation Comments nitrate, urine (test code = 30892-9) Negative Negative [facility]axhawurobilinogen, urine, semiquantitative (dipstick) 2020-08-15 16:26:00 Test Item Value Reference Range Interpretation Comments urobilinogen, urine, 0.2 (unknown 0.2-1.0 semiquantitative (dipstick) unit) (test code = 5818-0) [facility]hawbilirubin, kchvk8986-33-55 16:26:00 Test Item Value Reference Range Interpretation Comments bilirubin, urine (test code = Negative Negative 5770-3) [facility]axhawketones, urine, by test lsujv4976-93-12 16:26:00 Test Item Value Reference Range Interpretation Comments ketones, urine, by test strip (test Negative Negative code = 5797-6) [facility]hawglucose, urine, mzmemtbkzzenkzkl8211-42-76 16:26:00 Test Item Value Reference Range Interpretation Comments glucose, urine, semiquantitative Negative Negative (test code = 5792-7) [facility]hawprotein, urine, semiquantitative (dipstick)2020-08-15 16:26:00 Test Item Value Reference Range Interpretation Comments protein, urine, semiquantitative Trace Negative/Trace (dipstick) (test code = 1753-3) [facility]axhawleukocyte esterase, urine, by noronswa8396-99-16 16:26:00 Test Item Value Reference Range Interpretation Comments leukocyte esterase, urine, by dipstick Trace Negative A (test code = 5799-2) [facility]hawappearance, vybji5589-09-36 16:26:00 Test Item Value Reference Range Interpretation Comments appearance, urine (test code = 5767-9) Cloudy Clear A [facility]axhawurine mtzmg1240-39-96 16:26:00 Test Item Value Reference Range Interpretation Comments urine color (test code = 5778-6) Yellow Yellow [facility]hawpH, urine, jpszqexiyymljtsx6065-87-99 16:26:00 Test Item Value Reference Range Interpretation Comments pH, urine, semiquantitative 7.5 (unknown 5.0-7.5 (test code = 5803-2) unit) [facility] body woleg3961-30-90 16:26:00 Test Item Value Reference Range Interpretation Comments specific gravity, body 1.026 (unknown unit) 1.005-1.030 fluid (test code = 2964-5) [facility] aminotransferase (SGPT), gpwdk9020-94-41 16:26:00 Test Item Value Reference Range Interpretation Comments alanine aminotransferase (SGPT), serum 42 1/L 0-44 (test code = 1742-6) [facility]haw[facility]partate aminotransferase (SGOT), pqavh9049-85-22 16:26:00 Test Item Value Reference Range Interpretation Comments aspartate aminotransferase (SGOT), 22 1/L 0-40 serum (test code = 1920-8) [facility]aline phosphatase, ukrqw9416-17-14 16:26:00 Test Item Value Reference Range Interpretation Comments alkaline phosphatase, serum (test code 70 1/L 39-117 = 1783-0) [facility]irubin, serum, zwxpd7141-20-05 16:26:00 Test Item Value Reference Range Interpretation Comments bilirubin, serum, total (test code 0.5 mg/dL 0.0-1.2 = 1975-2) [facility]albumin/globulin ratio, ebqdg8183-27-47 16:26:00 Test Item Value Reference Range Interpretation Comments albumin/globulin ratio, 1.5 (unknown unit) 1.2-2.2 serum (test code = 1759-0) [facility] Healthglobulin, rilse5065-90-48 16:26:00 Test Item Value Reference Range Interpretation Comments globulin, serum (test code 3.3 (unknown unit) 1.5-4.5 = 2336-6) [facility]albumin, irdyr8870-18-63 16:26:00 Test Item Value Reference Range Interpretation Comments albumin, serum (test code = 1751-7) 4.8 g/dL 4.1-5.2 [facility]protein, total, osbzg2051-66-69 16:26:00 Test Item Value Reference Range Interpretation Comments protein, total, serum (test code = 8.1 g/dL 6.0-8.5 2885-2) [facility]calcium, pgpde2480-00-24 16:26:00 Test Item Value Reference Range Interpretation Comments calcium, serum (test code = 1999-) 9.7 mg/dL 8.7-10.2 [facility]carbon dioxide, venous lyxst1782-31-10 16:26:00 Test Item Value Reference Range Interpretation Comments carbon dioxide, venous blood (test 19 mmol/L 20-29 L code = 2026-1) [facility] Healthchloride, ddlcr3012-53-38 16:26:00 Test Item Value Reference Range Interpretation Comments chloride, serum (test code = 103 mmol/L 96-106 5-0) [facility]assium, xwsno3925-55-84 16:26:00 Test Item Value Reference Range Interpretation Comments potassium, serum (test code = 4.3 mmol/L 3.5-5.2 3-3) [facility]awsodium, sctxg4351-29-86 16:26:00 Test Item Value Reference Range Interpretation Comments sodium, serum (test code = 2951-2) 138 mmol/L 134-144 [facility]hawurea nitrogen/creatinine ratio, rundt2040-29-21 16:26:00 Test Item Value Reference Range Interpretation Comments urea nitrogen/creatinine 11 (unknown unit) 9-20 ratio, serum (test code = 3097-3) [facility] HealtheGFR if Forzbjfp0791-40-75 16:26:00 Test Item Value Reference Range Interpretation Comments eGFR if 135 mL/min/{1.73 m2} >59 (test code = 25871-5) [facility]hawEstimated Glomerular Filtration Rate (calc)2020-08-15 16:26:00 Test Item Value Reference Range Interpretation Comments Estimated Glomerular 117 mL/min/{1.73 m2} >59 Filtration Rate (calc) (test code = 87151-3) [facility]creatinine, kvfjw4822-20-92 16:26:00 Test Item Value Reference Range Interpretation Comments creatinine, serum (test code = 0.94 mg/dL 0.76-1.27 0-0) [facility]hawurea nitrogen, eblhd0139-45-19 16:26:00 Test Item Value Reference Range Interpretation Comments urea nitrogen, blood (test code = 10 mg/dL 6-20 3094-0) [facility]blood glucose, ehnhmq2026-22-43 16:26:00 Test Item Value Reference Range Interpretation Comments blood glucose, random (test code = 95 mg/dL 65-99 2339-0) [facility]hawimmature granulocytes, percentage of total cells, blood 2020-08-15 16:26:00 Test Item Value Reference Range Interpretation Comments immature granulocytes, percentage of 1 % total cells, blood (test code = 38457-9) [facility]hawbasophil count, tzdhjyoo7770-39-74 16:26:00 Test Item Value Reference Range Interpretation Comments basophil count, absolute (test 0.1 x10E3/uL 0.0-0.2 code = 80481-6) [facility]hawEosinophil Absolute Wgdfg2959-15-26 16:26:00 Test Item Value Reference Range Interpretation Comments Eosinophil Absolute Count (test 0.2 X10E3/UL 0.0-0.4 code = 96374-5) [facility]hawmonocyte count, blood, csywkzylw5788-55-14 16:26:00 Test Item Value Reference Range Interpretation Comments monocyte count, blood, automated 1.1 X10E3/UL 0.1-0.9 H (test code = 742-7) [facility]hawlymphocyte count, blood, dffmtpcqu5379-74-30 16:26:00 Test Item Value Reference Range Interpretation Comments lymphocyte count, blood, 4.4 X10E3/UL 0.7-3.1 H automated (test code = 731-0) [facility]hawAbsolute Rnrbsckoave5694-53-89 16:26:00 Test Item Value Reference Range Interpretation Comments Absolute Neutrophils (test code 5.3 X10E3/UL 1.4-7.0 = 67506-4) [facility]basophils as percent of blood avyvhpoetu0096-98-80 16:26:00 Test Item Value Reference Range Interpretation Comments basophils as percent of blood 1 % leukocytes (test code = 707-0) [facility]weosinophils as percent of blood icbhkjzuhv4065-23-24 16:26:00 Test Item Value Reference Range Interpretation Comments eosinophils as percent of blood 2 % leukocytes (test code = 713-8) [facility] Healthmonocytes as percent of blood ovtqoftwes1967-69-71 16:26:00 Test Item Value Reference Range Interpretation Comments monocytes as percent of blood 10 % leukocytes (test code = 5905-5) [facility]hawlymphocytes as percent of blood kikoctitgu5148-17-62 16:26:00 Test Item Value Reference Range Interpretation Comments lymphocytes as percent of blood 39 % leukocytes (test code = 736-9) [facility]hawneutrophils as percent of blood hvpjsefkrq1791-58-67 16:26:00 Test Item Value Reference Range Interpretation Comments neutrophils as percent of blood 47 % leukocytes (test code = 770-8) [facility]hawplatelet gzhdx6592-94-52 16:26:00 Test Item Value Reference Range Interpretation Comments platelet count (test code = 210 X10E3/UL 150-450 777-3) [facility]hawred blood cell distribution uekwv0986-37-35 16:26:00 Test Item Value Reference Range Interpretation Comments red blood cell distribution width 12.9 % 11.6-15.4 (test code = 788-0) [facility] corpuscular hemoglobin concentration, [id number] 16:26:00 Test Item Value Reference Range Interpretation Comments mean corpuscular hemoglobin 34.4 G/DL 31.5-35.7 concentration, RBC (test code = 786-4) [facility] corpuscular hemoglobin, LUV0931-42-33 16:26:00 Test Item Value Reference Range Interpretation Comments mean corpuscular hemoglobin, RBC 31.1 pg 26.6-33.0 (test code = 785-6) [facility] corpuscular volume, MNQ3124-73-86 16:26:00 Test Item Value Reference Range Interpretation Comments mean corpuscular volume, RBC (test code 90 fL 79-97 = 787-2) [facility]hematocrit, wjsuq9327-01-80 16:26:00 Test Item Value Reference Range Interpretation Comments hematocrit, blood (test code = 4544-3) 48.3 % 37.5-51.0 [facility]hawhemoglobin, azddr2427-02-23 16:26:00 Test Item Value Reference Range Interpretation Comments hemoglobin, blood (test code = 16.6 g/dL 13.0-17.7 718-7) [facility]hawerythrocyte (RBC) jnmko2240-37-03 16:26:00 Test Item Value Reference Range Interpretation Comments erythrocyte (RBC) count (test 5.34 X10E6/UL 4.14-5.80 code = 789-8) [facility]hawleukocyte count, tfgdo3222-34-92 16:26:00 Test Item Value Reference Range Interpretation Comments leukocyte count, blood (test 11.1 X10E3/UL 3.4-10.8 H code = 6690-2) [facility]hawphencyclidine screen, kkyzj0240-65-51 16:26:00 Test Item Value Reference Range Interpretation Comments phencyclidine screen, urine (test Negative Cutoff=25 code = 3936-2) [facility]opiates, urine, kykkwmbrrqphmbkd5463-80-90 16:26:00 Test Item Value Reference Range Interpretation Comments opiates, urine, semiquantitative Negative Tzofcn=268 (test code = 3879-4) [facility]hawcannabinoid screen, jhluc3993-43-85 16:26:00 Test Item Value Reference Range Interpretation Comments cannabinoid screen, urine (test code Negative Cutoff=50 = 3426-4) [facility]hawbenzodiazepine screen, vsekw7185-45-74 16:26:00 Test Item Value Reference Range Interpretation Comments benzodiazepine screen, urine (test Negative Pgqcyk=133 code = 3390-2) [facility]amphetamine screen, fmnhz0652-56-66 16:26:00 Test Item Value Reference Range Interpretation Comments amphetamine screen, urine (test code Negative Rqiwsd=6507 = 3349-8) [facility]hawhepatitis B surface cbododq0598-73-28 16:26:00 Test Item Value Reference Range Interpretation Comments hepatitis B surface antigen (test Negative Negative code = 79) [facility]hawHIV-2 antibodies, western qdnd3301-47-35 16:26:00 Test Item Value Reference Range Interpretation Comments HIV-2 antibodies, western blot (test Negative Negative code = 22869) [facility]hawHIV-1/HIV-2 Ab, hdezx4804-05-52 16:26:00 Test Item Value Reference Range Interpretation Comments HIV-1/HIV-2 Ab, serum (test code = Positive Negative A 3399) [facility]hawHIV-CMIA (Chemiluminescent Microparticle Immuno Assay) 2020-08-15 16:26:00 Test Item Value Reference Range Interpretation Comments HIV-CMIA (Chemiluminescent Reactive Non Reactive A Microparticle Immuno Assay) (test code = 550989) [facility] urine on iujwozoxbh2324-58-95 16:26:00 Test Item Value Reference Range Interpretation Comments WBC urine on microscopy (test code 6-10 /hpf 0-5 A = 1016) [facility]hawalcohol, mkqtz0072-08-86 16:26:00 Test Item Value Reference Range Interpretation Comments alcohol, urine (test code = 2458) Negative % Cutoff=0.020 [facility]hawcocaine, sipmg7874-04-95 16:26:00 Test Item Value Reference Range Interpretation Comments cocaine, urine (test code = 3292) Negative Monhvn=538 [facility]hawbarbiturates screen, wkewn2409-66-28 16:26:00 Test Item Value Reference Range Interpretation Comments barbiturates screen, urine (test Negative Lzkujl=912 code = 2460) [facility]hawBASIC METABOLIC [id number] 17:17:00 Test Item Value Reference Range Interpretation Comments SODIUM (test code = 139 mmol/L 135-148 N NA) POTASSIUM (test code = 3.7 mmol/L 3.5-5.1 N K) CHLORIDE (test code = 103 mmol/L 101-109 N CL) CARBON DIOXIDE (test 29.1 mmol/L 21-32 N code = CO2) ANION GAP (test code = 11 mmol/L 10-20 N GAP) GLUCOSE (test code = 120 mg/dL 74-106 H GLU) BLOOD UREA NITROGEN 11 mg/dL 3-21 N (test code = BUN) GLOMERULAR FILTRATION > 60 mL/min >=60 Estima rtevor GFR by RATE (test code = GFR) using Modified MDRD formula.Chronic kidney disease is defined as eith er kidney damageor GFR <60 mL/min/1.73 m2 for >3 months. CREATININE (test code 0.83 mg/dL 0.55-1.3 N = CREAT) BUN/CREATININE RATIO 13.3 10-20 N (test code = BUN/CREA) CALCIUM (test code = 9.2 mg/dL 8.4-10.2 N CA) MONO [id number] 17:13:00 Test Item Value Reference Range Interpretation Comments MONO SCREEN (test code = MONO) NEGATIVE NEGATIVE CBC W/AUTO [id number] 17:08:00 Test Item Value Reference Range Interpretation Comments WHITE BLOOD CELL (test code = 5.7 K/mm3 4.5-12.5 N WBC) RED BLOOD CELL (test code = 4.58 mill/mm3 4.0-5.8 N RBC) HEMOGLOBIN (test code = HGB) 14.2 gram/dL 13.0-17.5 N HEMATOCRIT (test code = HCT) 41.6 % 42.0-52.0 L MEAN CELL VOLUME (test code = 90.8 fL 80-98 N MCV) MEAN CELL HGB (test code = MCH) 31.0 picogram 27.0-33.0 N MEAN CELL HGB CONCETRATION 34.1 gram/dL 33.0-36.0 N (test code = MCHC) RED CELL DISTRIBUTION WIDTH 11.8 % 11.6-16.2 N (test code = RDW) RED CELL DISTRIBUTION WIDTH SD 39.4 fL 37.0-51.0 N (test code = RDW-SD) PLATELET COUNT (test code = 137 K/mm3 150-450 L PLT) MEAN PLATELET VOLUME (test code 9.8 fL 6.7-11.0 N = MPV) NEUTROPHIL % (test code = NT%) 59.3 % 39.0-69.0 N LYMPHOCYTE % (test code = LY%) 36.6 % 25.0-55.0 N MONOCYTE % (test code = MO%) 3.5 % 0.0-10.0 N EOSINOPHIL % (test code = EO%) 0.0 % 0.0-5.0 N BASOPHIL % (test code = BA%) 0.2 % 0.0-1.0 N NEUTROPHIL # (test code = NT#) 3.38 K/mm3 1.8-7.7 N LYMPHOCYTE # (test code = LY#) 2.08 K/mm3 1.0-5.0 N MONOCYTE # (test code = MO#) 0.20 K/mm3 0-0.8 N EOSINOPHIL # (test code = EO#) 0.00 K/mm3 0.0-0.5 N BASOPHIL # (test code = BA#) 0.01 K/mm3 0.0-0.2 N Streptococcus pyogenes antigen detection in olldxv6985-88-20 11:16:00 Test Item Value Reference Range Interpretation Comments Group A Streptococcus Screen (test NEGATIVE NEGATIVE code = 74847-9) [facility]viewTREPTOC[facility]CC[facility] PCR [id number] 05:08:00 Test Item Value Reference Range Interpretation Comments STREPTOCOCCUS DYSGALACTIAE NEGATIVE FOR G/C NEGATIVE (test code = STREPGC) STREPA MOLECULAR (test NEGATIVE FOR GRP A NEGATIVE code = STREPAMOL) COVID 19 INHOUSE WQ4831-08-23 12:14:00 Test Item Value Reference Range Interpretation Comments COVID 19 INHOUSE AG (test code = NEGATIVE [id number]) CHEST SINGLE (PORTABLE)2020-07-17 02:54:00 [facility] 2000 Sex: M [place] [address] Patient Name: JANY MAGANA MR #: [id number] : 2000 Age/Sex: 20/M Req #: [id number] Adm Physician: Ordered by: SHYANN KULKARNI DO Report #: [id number] Location: ER Room/Bed: Procedure: [id number] DX/CHESTSINGLE (PORTABLE) Exam Date: 07/17/20 Exam Time: 144 REPORT STATUS: Signed EXAMINATION: CHEST SINGLE (PORTABLE) INDICATION: Fever, history Covid. Y PUI [id number] COMPARISON: None FIN DINGS: LUNGS: Normal lung volumes. Lungs are clear. No consolidations. PLEURA: No pleural effusion or pneumothorax. HEART AND MEDIASTINUM: Heart is nonenlarged. Angular density projecting over the lower trachea with edges projecting over the lung apices bilaterally. IMPRESSION: 1. Angular density projecting over the lower trachea with margins projecting into the bilateral apices of uncertain etiology, possible residual thymic tissue, but differential also includesmediastinal lesions. Recommend comparison with outside imaging to determine stability versus nonemergent outpatient chest CT with contrast for further evaluation. 2. Otherwise, no acute thoracic radiographic abnormality. Signed by: Kane Simental MD on 07/17/2020 3:01 AM Dictated By: KANE SIMENTAL MD 0 Transcribed By: DENEEN on 07/17/20300 COPY TO: SHYANN KULKARNI DOInfluenza virus A and B antigen identification by wocsabpeyfxvwtxqmv2095-08-74 02:45:00 Test Item Value Reference Range Interpretation Comments Influenza Virus Types A,B Antigen NEGATIVE NEGATIVE (test code = 66443-8) [facility] CenterIn[facility] A and B antigen identification by zdgxrmiefncbehgrux7078-86-25 02:45:00 Test Item Value Reference Range Interpretation Comments Influenza Virus Types A,B Antigen NEGATIVE NEGATIVE (test code = 55991-4) [facility] CenterInfluenza virus A and B antigen identification by opamxfuclksjgjutan5772-36-42 02:45:00 Test Item Value Reference Range Interpretation Comments Influenza Virus Types A,B Antigen NEGATIVE NEGATIVE (test code = 94716-0) [facility] CenterInfluenza virus A and B antigen identification by onakladhgfohwrkwqk3219-22-26 02:45:00 Test Item Value Reference Range Interpretation Comments Influenza Virus Types A,B Antigen NEGATIVE NEGATIVE (test code = 68831-4) [facility] CenterCT [facility]/PELVIS [id number] 02:39:00 [facility] : 2000 Sex: M [facility] [address] [place] [address] Patient Name: JANY MAGANA MR #: [id number] : 2000 Age/Sex: 20/M Req #: [id number] [facility] Physician: Ordered by: SHYANN KULKARNI DO Report #: [id number] Location: ER Room/Bed: Procedure: [id number] CT/CT ABDOMEN/PELVIS W Exam Date: 07/17/20 Exam Time: 144 REPORT STATUS: Signed EXAM: CT Abdomen and Pelvis WITH contrast INDICATION: Y abd pain [id number] COMPARISON: None. TECHNIQUE: Abdomen and pelvis were scanned utilizing a multidetector helical scanner from the lung base to the pubic symphysis after administration of IV contrast. Coronal and sagittal reformations were obtained. Routine protocol was performed. Scan was performed when during portal venous phase. IV CONTRAST: 100 mLof Isovue 370 ORAL CONTRAST: None COMPLICATIONS: None FINDINGS: LINES and TUBES: None. LOWER THORAX: Unremarkable HEPATOBILIARY: No focal hepatic lesions. No biliary ductal dilation. GALLBLADDER: Contracted which limits evaluation. SPLEEN: No splenomegaly. PANCREAS: No focal masses or ductal dilatation. ADRENALS: No adrenal nodu les KIDNEYS/URETERS: Kidneys enhance symmetrically. No hydronephrosis. No cystic or solid mass lesions. No stones. GI TRACT: No abnormal distention or evidence of bowel obstruction. Appendix is normal. Circumferential marked rectal wall thickening measuring up to 9 mm with s tranding of the perirectal fat and multiple adjacent mildly enlarged lymph nodes measuring up to 9mm in short axis diameter. PELVIC ORGANS/BLADDER: Unremarkable. LYMPH NODES: Mildly enlarged perirectal lymph nodes measuring up to 9 mm. VESSELS: Unremarkable. PERITONEUM / RETROPERITONEUM: No free air or fluid. BONES: Unremarkable. SOFT TISSUES: Unremarkable. IMPRESSION: Circumferential wall thickening of the rectum with stranding of the perirectal fat and adjacent mildly enlarged lymph nodes. Findings are suggestive of proctitis. Signed by: Kane Simental MD on 07/17/2020 2:54 AM Dictated By: KANE SIMENTAL MD Electronically SignedBy: KANE SIMENTAL MD on 07/17/20253 Transcribed By: DENEEN on 07/17/20253 COPY TO: SHYANN KULKARNI DOBlood leukocytes automated count (number/volume)2020-07-17 01:10:00 Test Item Value Reference Range Interpretation Comments White Blood Count (test code = 2.82 10*3/uL 4.8-10.8 6690-2) [facility] erythrocytes automated count (number/volume)2020-07-17 01:10:00 Test Item Value Reference Range Interpretation Comments Red Blood Count (test code = 4.77 10*6/mL 4.3-5.7 789-8) [facility] CenterBlood hemoglobin measurement (moles/volume)2020-07-17 01:10:00 Test Item Value Reference Range Interpretation Comments Hemoglobin (test code = 27568-2) 14.9 g/dL 14.0-18.0 [facility] CenterAutomated blood hematocrit (volume fraction)2020-07-17 01:10:00 Test Item Value Reference Range Interpretation Comments Hematocrit (test code = 4544-3) 43.7 % 38.2-49.6 [facility] CenterAutomated erythrocyte mean corpuscular qfturu2541-79-15 01:10:00 Test Item Value Reference Range Interpretation Comments Mean Corpuscular Volume (test code = 91.6 81-99 787-2) [facility] CenterAutomated erythrocyte mean corpuscular hemoglobin (mass per erythrocyte)2020-07-17 01:10:00 Test Item Value Reference Range Interpretation Comments Mean Corpuscular Hemoglobin (test 31.2 pg 28-32 code = 785-6) [facility] CenterAutomated erythrocyte mean corpuscular hemoglobin concentration measurement (mass/volume)2020-07-17 01:10:00 Test Item Value Reference Range Interpretation Comments Mean Corpuscular Hemoglobin Concent 34.1 g/dL 31-35 (test code = 786-4) [facility] CenterRDW LjwXa-Qis9581-32-08 01:10:00 Test Item Value Reference Range Interpretation Comments Red Cell Distribution Width (test code 11.7 % 11.7-14.4 = 10212-1) [facility] CenterAutomated blood platelet count (count/volume)2020-07-17 01:10:00 Test Item Value Reference Range Interpretation Comments Platelet Count (test code = 777-3) 96 10*3/uL 140-360 [facility] CenterAutomated blood segmented neutrophil count as percentage of total zujjejojpm4432-13-66 01:10:00 Test Item Value Reference Range Interpretation Comments Neutrophils (%) (Auto) (test code = 51.1 % 38.7-80.0 82465-3) [facility] CenterAutomated blood lymphocyte count as percentage ot total zqlaossnpk4234-36-98 01:10:00 Test Item Value Reference Range Interpretation Comments Lymphocytes (%) (Auto) (test code = 37.9 % 18.0-39.1 736-9) [facility] CenterAutomated blood monocyte count as percentage of total zajjmsymfe4442-60-68 01:10:00 Test Item Value Reference Range Interpretation Comments Monocytes (%) (Auto) (test code = 11.0 % 4.4-11.3 5905-5) [facility] CenterAutomated blood eosinophil count as percentage of total ygkokkqezr0317-81-33 01:10:00 Test Item Value Reference Range Interpretation Comments Eosinophils (%) (Auto) (test code = 0.0 % 0.0-6.0 713-8) [facility] CenterAutomated blood basophil count as percentage of total nzpfnehopb4947-41-79 01:10:00 Test Item Value Reference Range Interpretation Comments Basophils (%) (Auto) (test code = 0.0 % 0.0-1.0 706-2) [facility] CenterFluoroscopic procedure less than one hour gkahwqvc0756-91-82 01:10:00 Test Item Value Reference Range Interpretation Comments IM GRANULOCYTES % (test code = IM 0.0 % 0.0-1.0 GRANULOCYTES %) [facility] CenterAutomated blood neutrophil count 2020-07-17 01:10:00 Test Item Value Reference Range Interpretation Comments Neutrophils # (Auto) (test code = 1.4 2.1-6.9 751-8) [facility] CenterBlood lymphocytes count (number/volume) 2020-07-17 01:10:00 Test Item Value Reference Range Interpretation Comments Lymphocytes # (Auto) (test code = 1.1 1.0-3.2 52756-2) [facility] CenterBlood monocytes automated count (number/volume)2020-07-17 01:10:00 Test Item Value Reference Range Interpretation Comments Monocytes # (Auto) (test code = 742-7) 0.3 0.2-0.8 [facility] CenterAutomated blood eosinophil count 2020-07-17 01:10:00 Test Item Value Reference Range Interpretation Comments Eosinophils # (Auto) (test code = 0.0 0.0-0.4 711-2) [facility] CenterAutomated blood basophil count (count/volume)2020-07-17 01:10:00 Test Item Value Reference Range Interpretation Comments Basophils # (Auto) (test code = 704-7) 0.0 0.0-0.1 [facility] CenterFluoroscopic procedure less than one hour vzitlhwj1019-62-00 01:10:00 Test Item Value Reference Range Interpretation Comments Absolute Immature Granulocyte (auto 0 10*3/uL 0-0.1 (test code = Absolute Immature Granulocyte (auto) [facility] CenterUrine color xtjktxvfeilbs5400-72-33 01:10:00 Test Item Value Reference Range Interpretation Comments Urine Color (test code = 5778-6) YELLOW YELLOW [facility] CenterUrine afvyxei2554-90-15 01:10:00 Test Item Value Reference Range Interpretation Comments Urine Clarity (test code = 21984-3) CLEAR CLEAR [facility]viewpecific gravity of Urine by Test strip 2020-07-17 01:10:00 Test Item Value Reference Range Interpretation Comments Urine Specific [place] (test code = 1.025 1.010-1.025 5811-5) [facility] CenterUrine pH measurement by automated test fktrn2040-38-75 01:10:00 Test Item Value Reference Range Interpretation Comments Urine pH (test code = 78383-2) 7 5-7 [facility] CenterUrine leukocyte esterase detection by automated test nblab2314-51-30 01:10:00 Test Item Value Reference Range Interpretation Comments Urine Leukocyte Esterase (test code = TRACE NEGATIVE 83979-0) [facility] CenterUrine nitrite detection by automated test spskh3833-68-36 01:10:00 Test Item Value Reference Range Interpretation Comments Urine Nitrite (test code = 37990-4) NEGATIVE NEGATIVE [facility] CenterUrine protein detection by automated test oqokj3314-99-52 01:10:00 Test Item Value Reference Range Interpretation Comments Urine Protein (test code = 32977-9) NEGATIVE NEGATIVE [facility] CenterUrine glucose awyaauofg2620-76-68 01:10:00 Test Item Value Reference Range Interpretation Comments Urine Glucose (UA) (test code = NEGATIVE NEGATIVE 2349-9) [facility] CenterUrine ketones detection by automated test wvmpd8759-33-38 01:10:00 Test Item Value Reference Range Interpretation Comments Urine Ketones (test code = 07534-2) NEGATIVE NEGATIVE [facility] CenterUrine urobilinogen measurement by test strip (mass/volume)2020-07-17 01:10:00 Test Item Value Reference Range Interpretation Comments Urine Urobilinogen (test code = 0.2 mg/dL 0.2-1 73865-1) [facility] CenterU[facility] total bilirubin measurement (mass/volume)2020-07-17 01:10:00 Test Item Value Reference Range Interpretation Comments Urine Bilirubin (test code = 1978-6) NEGATIVE NEGATIVE [facility] CenterUrine erythrocytes jfjkezmsd6571-37-71 01:10:00 Test Item Value Reference Range Interpretation Comments Urine Blood (test code = 03460-8) NEGATIVE NEGATIVE [facility] CenterAutomated urine sediment leukocyte count by microscopy (number/high power field)2020-07-17 01:10:00 Test Item Value Reference Range Interpretation Comments Urine WBC (test code = 5821-4) 6-10 /[HPF] 0-5 [facility] CenterErythrocytes detection in urine sediment by light pfvmxzesoa6602-24-34 01:10:00 Test Item Value Reference Range Interpretation Comments Urine RBC (test code = 93910-3) 0-5 /[HPF] 0-5 [facility] CenterBacteria detection in urine sediment by light pwwlyvmewr5715-11-03 01:10:00 Test Item Value Reference Range Interpretation Comments Urine Bacteria (test code = FEW /[HPF] NONE 51317-9) [facility] CenterEpithelial cells detection in urine sediment by light urtzzxxvut2158-23-78 01:10:00 Test Item Value Reference Range Interpretation Comments Urine Epithelial Cells (test code FEW /[LPF] NONE = 00953-6) [facility] plasma sodium measurement (moles/volume)2020-07-17 01:10:00 Test Item Value Reference Range Interpretation Comments Sodium Level (test code = 2951-2) 136 mmol/L 136-145 [facility]viewerum or plasma potassium measurement (moles/volume)2020-07-17 01:10:00 Test Item Value Reference Range Interpretation Comments Potassium Level (test code = 3.9 mmol/L 3.5-5.1 2823-3) [facility]viewerum or plasma chloride measurement (moles/volume)2020-07-17 01:10:00 Test Item Value Reference Range Interpretation Comments Chloride Level (test code = 101 mmol/L 98-107 2075-0) [facility]viewerum or plasma carbon dioxide, total measurement (moles/volume)2020-07-17 01:10:00 Test Item Value Reference Range Interpretation Comments Carbon Dioxide Level (test code = 26 mmol/L 2027-9) [facility]erum or plasma anion efg8337-09-78 01:10:00 Test Item Value Reference Range Interpretation Comments Anion Gap (test code = 02125-0) 12.9 mmol/L 8-16 [facility]erum or plasma urea nitrogen measurement (mass/volume)2020-07-17 01:10:00 Test Item Value Reference Range Interpretation Comments Blood Urea Nitrogen (test code = 11 mg/dL 03-04 3094-0) [facility]erum or plasma creatinine measurement (mass/volume)2020-07-17 01:10:00 Test Item Value Reference Range Interpretation Comments Creatinine (test code = 2160-0) 0.99 mg/dL 0.72-1.25 [facility]erum or plasma urea nitrogen/creatinine mass egdny6666-34-25 01:10:00 Test Item Value Reference Range Interpretation Comments BUN/Creatinine Ratio (test code = 11 6-25 3097-3) [facility] CenterEstimated glomerular filtration rate (GFR) ovnclxpvtgtpm8250-41-69 01:10:00 Test Item Value Reference Range Interpretation Comments Estimat Glomerular Filtration > 60 mL/min >60 Rate (test code = 696387287) Ranges were taken from the National Kidney Disease Education Program and the National Kidney Foundation literature.Reference ranges:60 or greater: Vpqdsn25- 59 (for 3 consecutive months): Chronic kidneydisease 15 or less: Kidney failure [facility] CenterGlucose rkohiuzfooo8394-36-75 01:10:00 Test Item Value Reference Range Interpretation Comments Glucose Level (test code = [id number]) 97 mg/dL 74-118 [facility]erum or plasma calcium measurement (mass/volume)2020-07-17 01:10:00 Test Item Value Reference Range Interpretation Comments Calcium Level (test code = 77628-5) 8.6 mg/dL 8.4-10.2 [facility] CenterFluoroscopic procedure less than one hour txqnlcep2230-13-62 01:10:00 Test Item Value Reference Range Interpretation Comments Lactic Acid Level (test code = 0.9 mmol/L 0.5-2.0 Lactic Acid Level) [facility]erum or plasma total bilirubin measurement (mass/volume)2020-07-17 01:10:00 Test Item Value Reference Range Interpretation Comments Total Bilirubin (test code = 0.3 mg/dL 0.2-1.2 1975-2) [facility] CenterFluoroscopic procedure less than one hour hlgbptkd0405-50-90 01:10:00 Test Item Value Reference Range Interpretation Comments Aspartate Amino Transf (AST/SGOT) 24 [IU]/L 5-34 (test code = Aspartate Amino Transf (AST/SGOT)) [facility]viewerum or plasma alanine aminotransferase measurement (enzymatic activity/volume)2020-07-17 01:10:00 Test Item Value Reference Range Interpretation Comments Alanine Aminotransferase (ALT/SGPT) 12 [IU]/L 0-55 (test code = 1742-6) [facility]viewerum or plasma protein measurement (mass/volume)2020-07-17 01:10:00 Test Item Value Reference Range Interpretation Comments Total Protein (test code = 2885-2) 7.1 g/dL 6.5-8.1 [facility]erum or plasma albumin measurement (mass/volume)2020-07-17 01:10:00 Test Item Value Reference Range Interpretation Comments Albumin (test code = 1751-7) 4.2 g/dL 3.5-5.0 [facility] CenterPlasma globulin measurement (mass/volume) 2020-07-17 01:10:00 Test Item Value Reference Range Interpretation Comments Globulin (test code = 70916-9) 2.9 g/dL 2.3-3.5 [facility]erum or plasma albumin/globulin mass ajagf7044-05-92 01:10:00 Test Item Value Reference Range Interpretation Comments Albumin/Globulin Ratio (test code = 1.4 0.8-2.0 1759-0) [facility]erum or plasma alkaline phosphatase measurement (enzymatic activity/volume)2020-07-17 01:10:00 Test Item Value Reference Range Interpretation Comments Alkaline Phosphatase (test code = 51 [IU]/L 40-150 6768-6) [facility]erum or plasma lipase measurement (enzymatic activity/volume)2020-07-17 01:10:00 Test Item Value Reference Range Interpretation Comments Lipase (test code = 3040-3) 34 U/L 8-78 [facility]viewerum heterophile antibody titer by latex eyoxsmxhyhiiw9476-33-04 01:10:00 Test Item Value Reference Range Interpretation Comments Monoscreen (test code = 5215-9) NEGATIVE NEGATIVE [facility] CenterHIV 1 and 2 antibody detection qualitative by rapid qxqawhmesre7536-86-36 01:10:00 Test Item Value Reference Range Interpretation Comments HIV (1&2) Antibody (test code = NON-REACTIVE NONREACTIVE 10724-9) [facility] CenterFluoroscopic procedure less than one hour rxcydyjv6399-27-72 01:10:00 Test Item Value Reference Range Interpretation Comments HIV P24 Antigen (test code = HIV NON-REACTIVE NONREACTIVE P24 Antigen) [facility] CenterBlood leukocytes automated count (number/volume)2020-07-17 01:10:00 Test Item Value Reference Range Interpretation Comments White Blood Count (test code = 2.82 10*3/uL 4.8-10.8 6690-2) [facility] CenterBlood erythrocytes automated count (number/volume)2020-07-17 01:10:00 Test Item Value Reference Range Interpretation Comments Red Blood Count (test code = 4.77 10*6/mL 4.3-5.7 789-8) [facility] CenterBlood hemoglobin measurement (moles/volume)2020-07-17 01:10:00 Test Item Value Reference Range Interpretation Comments Hemoglobin (test code = 28598-9) 14.9 g/dL 14.0-18.0 [facility] CenterAutomated blood hematocrit (volume fraction)2020-07-17 01:10:00 Test Item Value Reference Range Interpretation Comments Hematocrit (test code = 4544-3) 43.7 % 38.2-49.6 [facility] CenterAutomated erythrocyte mean corpuscular ckeosc6489-02-26 01:10:00 Test Item Value Reference Range Interpretation Comments Mean Corpuscular Volume (test code = 91.6 81-99 787-2) [facility] CenterAutomated erythrocyte mean corpuscular hemoglobin (mass per erythrocyte)2020-07-17 01:10:00 Test Item Value Reference Range Interpretation Comments Mean Corpuscular Hemoglobin (test 31.2 pg 28-32 code = 785-6) [facility] CenterAutomated erythrocyte mean corpuscular hemoglobin concentration measurement (mass/volume)2020-07-17 01:10:00 Test Item Value Reference Range Interpretation Comments Mean Corpuscular Hemoglobin Concent 34.1 g/dL 31-35 (test code = 786-4) [facility] CenterRDW KjuXr-Jkw6133-70-08 01:10:00 Test Item Value Reference Range Interpretation Comments Red Cell Distribution Width (test code 11.7 % 11.7-14.4 = 25058-9) [facility] CenterAutomated blood platelet count (count/volume)2020-07-17 01:10:00 Test Item Value Reference Range Interpretation Comments Platelet Count (test code = 777-3) 96 10*3/uL 140-360 [facility] CenterAutomated blood segmented neutrophil count as percentage of total upcavrijoq6792-16-09 01:10:00 Test Item Value Reference Range Interpretation Comments Neutrophils (%) (Auto) (test code = 51.1 % 38.7-80.0 00745-1) [facility] CenterAutomated blood lymphocyte count as percentage ot total dbgwevdazq9832-13-49 01:10:00 Test Item Value Reference Range Interpretation Comments Lymphocytes (%) (Auto) (test code = 37.9 % 18.0-39.1 736-9) [facility] CenterAutomated blood monocyte count as percentage of total alwzdhrwfd5126-20-24 01:10:00 Test Item Value Reference Range Interpretation Comments Monocytes (%) (Auto) (test code = 11.0 % 4.4-11.3 5905-5) [facility] CenterAutomated blood eosinophil count as percentage of total muoaxadtuv5259-20-79 01:10:00 Test Item Value Reference Range Interpretation Comments Eosinophils (%) (Auto) (test code = 0.0 % 0.0-6.0 713-8) [facility] CenterAutomated blood basophil count as percentage of total djhkwkeezp0671-98-46 01:10:00 Test Item Value Reference Range Interpretation Comments Basophils (%) (Auto) (test code = 0.0 % 0.0-1.0 706-2) [facility] CenterFluoroscopic procedure less than one hour fjzsqmhj7193-20-62 01:10:00 Test Item Value Reference Range Interpretation Comments IM GRANULOCYTES % (test code = IM 0.0 % 0.0-1.0 GRANULOCYTES %) [facility] CenterAutomated blood neutrophil count 2020-07-17 01:10:00 Test Item Value Reference Range Interpretation Comments Neutrophils # (Auto) (test code = 1.4 2.1-6.9 751-8) [facility] CenterBlood lymphocytes count (number/volume) 2020-07-17 01:10:00 Test Item Value Reference Range Interpretation Comments Lymphocytes # (Auto) (test code = 1.1 1.0-3.2 74684-3) [facility] CenterBlood monocytes automated count (number/volume)2020-07-17 01:10:00 Test Item Value Reference Range Interpretation Comments Monocytes # (Auto) (test code = 742-7) 0.3 0.2-0.8 [facility] CenterAutomated blood eosinophil count 2020-07-17 01:10:00 Test Item Value Reference Range Interpretation Comments Eosinophils # (Auto) (test code = 0.0 0.0-0.4 711-2) [facility] CenterAutomated blood basophil count (count/volume)2020-07-17 01:10:00 Test Item Value Reference Range Interpretation Comments Basophils # (Auto) (test code = 704-7) 0.0 0.0-0.1 [facility] CenterFluoroscopic procedure less than one hour ijkskmdx2912-26-20 01:10:00 Test Item Value Reference Range Interpretation Comments Absolute Immature Granulocyte (auto 0 10*3/uL 0-0.1 (test code = Absolute Immature Granulocyte (auto) [facility] CenterUrine color wrkxpzafvhmiz4169-55-98 01:10:00 Test Item Value Reference Range Interpretation Comments Urine Color (test code = 5778-6) YELLOW YELLOW [facility] CenterUrine brqemjd3397-93-98 01:10:00 Test Item Value Reference Range Interpretation Comments Urine Clarity (test code = 73774-5) CLEAR CLEAR [facility]viewpecific gravity of Urine by Test strip 2020-07-17 01:10:00 Test Item Value Reference Range Interpretation Comments Urine Specific [place] (test code = 1.025 1.010-1.025 5811-5) [facility] CenterUrine pH measurement by automated test ssgbp4598-15-48 01:10:00 Test Item Value Reference Range Interpretation Comments Urine pH (test code = 55213-0) 7 5-7 [facility] CenterUrine leukocyte esterase detection by automated test pkimr3648-46-75 01:10:00 Test Item Value Reference Range Interpretation Comments Urine Leukocyte Esterase (test code = TRACE NEGATIVE 58585-4) [facility] CenterUrine nitrite detection by automated test kbeiu3802-03-93 01:10:00 Test Item Value Reference Range Interpretation Comments Urine Nitrite (test code = 30193-6) NEGATIVE NEGATIVE [facility] CenterUrine protein detection by automated test vwksp0389-18-40 01:10:00 Test Item Value Reference Range Interpretation Comments Urine Protein (test code = 85279-8) NEGATIVE NEGATIVE [facility] CenterUrine glucose jfftinlbg8080-72-25 01:10:00 Test Item Value Reference Range Interpretation Comments Urine Glucose (UA) (test code = NEGATIVE NEGATIVE 2349-9) [facility] CenterUrine ketones detection by automated test lprtq3298-28-28 01:10:00 Test Item Value Reference Range Interpretation Comments Urine Ketones (test code = 84948-6) NEGATIVE NEGATIVE [facility] CenterUrine urobilinogen measurement by test strip (mass/volume)2020-07-17 01:10:00 Test Item Value Reference Range Interpretation Comments Urine Urobilinogen (test code = 0.2 mg/dL 0.2-1 66134-0) [facility] CenterUrine total bilirubin measurement (mass/volume)2020-07-17 01:10:00 Test Item Value Reference Range Interpretation Comments Urine Bilirubin (test code = 1978-6) NEGATIVE NEGATIVE [facility] CenterUrine erythrocytes gqtxxcait2758-35-77 01:10:00 Test Item Value Reference Range Interpretation Comments Urine Blood (test code = 07836-6) NEGATIVE NEGATIVE [facility] CenterAutomated urine sediment leukocyte count by microscopy (number/high power field)2020-07-17 01:10:00 Test Item Value Reference Range Interpretation Comments Urine WBC (test code = 5821-4) 6-10 /[HPF] 0-5 [facility] CenterErythrocytes detection in urine sediment by light xknstyebkn6051-46-71 01:10:00 Test Item Value Reference Range Interpretation Comments Urine RBC (test code = 55426-2) 0-5 /[HPF] 0-5 [facility] CenterBacteria detection in urine sediment by light yedwvfkzkh7890-44-19 01:10:00 Test Item Value Reference Range Interpretation Comments Urine Bacteria (test code = FEW /[HPF] NONE 29469-0) [facility] CenterEpithelial cells detection in urine sediment by light libqwssdrk1190-14-91 01:10:00 Test Item Value Reference Range Interpretation Comments Urine Epithelial Cells (test code FEW /[LPF] NONE = 08610-2) [facility]erum or plasma sodium measurement (moles/volume)2020-07-17 01:10:00 Test Item Value Reference Range Interpretation Comments Sodium Level (test code = 2951-2) 136 mmol/L 136-145 [facility]erum or plasma potassium measurement (moles/volume)2020-07-17 01:10:00 Test Item Value Reference Range Interpretation Comments Potassium Level (test code = 3.9 mmol/L 3.5-5.1 2823-3) [facility]erum or plasma chloride measurement (moles/volume)2020-07-17 01:10:00 Test Item Value Reference Range Interpretation Comments Chloride Level (test code = 101 mmol/L 98-107 2075-0) [facility]erum or plasma carbon dioxide, total measurement (moles/volume)2020-07-17 01:10:00 Test Item Value Reference Range Interpretation Comments Carbon Dioxide Level (test code = 26 mmol/L 2027-) [facility]erum or plasma anion xvz9623-71-63 01:10:00 Test Item Value Reference Range Interpretation Comments Anion Gap (test code = 93646-5) 12.9 mmol/L -16 [facility]erum or plasma urea nitrogen measurement (mass/volume)2020-07-17 01:10:00 Test Item Value Reference Range Interpretation Comments Blood Urea Nitrogen (test code = 11 mg/dL 03-04 3094-0) [facility]erum or plasma creatinine measurement (mass/volume)2020-07-17 01:10:00 Test Item Value Reference Range Interpretation Comments Creatinine (test code = 2160-0) 0.99 mg/dL 0.72-1.25 [facility]erum or plasma urea nitrogen/creatinine mass ngdzv0925-78-83 01:10:00 Test Item Value Reference Range Interpretation Comments BUN/Creatinine Ratio (test code = 11 6 3097-3) [facility] CenterEstimated glomerular filtration rate (GFR) tezrrfwjpnfeo1541-95-41 01:10:00 Test Item Value Reference Range Interpretation Comments Estimat Glomerular Filtration > 60 mL/min >60 Rate (test code = 421114950) Ranges were taken from the National Kidney Disease Education Program and the National Kidney Foundation literature.Reference ranges:60 or greater: Cdfhsv98- 59 (for 3 consecutive months): Chronic kidneydisease 15 or less: Kidney failure [facility] CenterGlucose fdjqfdbjhkj0404-96-16 01:10:00 Test Item Value Reference Range Interpretation Comments Glucose Level (test code = QZZ5679) 97 mg/dL 74-118 [facility]viewerum or plasma calcium measurement (mass/volume)2020-07-17 01:10:00 Test Item Value Reference Range Interpretation Comments Calcium Level (test code = 08428-1) 8.6 mg/dL 8.4-10.2 [facility] CenterFluoroscopic procedure less than one hour zkmfmcni1923-63-65 01:10:00 Test Item Value Reference Range Interpretation Comments Lactic Acid Level (test code = 0.9 mmol/L 0.5-2.0 Lactic Acid Level) [facility]erum or plasma total bilirubin measurement (mass/volume)2020-07-17 01:10:00 Test Item Value Reference Range Interpretation Comments Total Bilirubin (test code = 0.3 mg/dL 0.2-1.2 1975-2) [facility] CenterFluoroscopic procedure less than one hour hewvljjm3667-28-95 01:10:00 Test Item Value Reference Range Interpretation Comments Aspartate Amino Transf (AST/SGOT) 24 [IU]/L 5-34 (test code = Aspartate Amino Transf (AST/SGOT)) [facility]viewerum or plasma alanine aminotransferase measurement (enzymatic activity/volume)2020-07-17 01:10:00 Test Item Value Reference Range Interpretation Comments Alanine Aminotransferase (ALT/SGPT) 12 [IU]/L 0-55 (test code = 1742-6) [facility]viewerum or plasma protein measurement (mass/volume)2020-07-17 01:10:00 Test Item Value Reference Range Interpretation Comments Total Protein (test code = 2885-2) 7.1 g/dL 6.5-8.1 [facility]erum or plasma albumin measurement (mass/volume)2020-07-17 01:10:00 Test Item Value Reference Range Interpretation Comments Albumin (test code = 1751-7) 4.2 g/dL 3.5-5.0 [facility] CenterPlasma globulin measurement (mass/volume) 2020-07-17 01:10:00 Test Item Value Reference Range Interpretation Comments Globulin (test code = 85173-4) 2.9 g/dL 2.3-3.5 [facility]viewerum or plasma albumin/globulin mass ppbpx4363-02-87 01:10:00 Test Item Value Reference Range Interpretation Comments Albumin/Globulin Ratio (test code = 1.4 0.8-2.0 1759-0) [facility]erum or plasma alkaline phosphatase measurement (enzymatic activity/volume)2020-07-17 01:10:00 Test Item Value Reference Range Interpretation Comments Alkaline Phosphatase (test code = 51 [IU]/L 40-150 6768-6) [facility]viewerum or plasma lipase measurement (enzymatic activity/volume)2020-07-17 01:10:00 Test Item Value Reference Range Interpretation Comments Lipase (test code = 3040-3) 34 U/L 8-78 [facility]viewerum heterophile antibody titer by latex jqyughsozamgg1004-75-51 01:10:00 Test Item Value Reference Range Interpretation Comments Monoscreen (test code = 5215-9) NEGATIVE NEGATIVE [facility] CenterHIV 1 and 2 antibody detection qualitative by rapid plytdtswbih7874-04-18 01:10:00 Test Item Value Reference Range Interpretation Comments HIV (1&2) Antibody (test code = NON-REACTIVE NONREACTIVE 87469-4) [facility] CenterFluoroscopic procedure less than one hour woprjmso1243-29-19 01:10:00 Test Item Value Reference Range Interpretation Comments HIV P24 Antigen (test code = HIV NON-REACTIVE NONREACTIVE P24 Antigen) [facility] CenterBlood wjdfogl5315-08-75 01:10:00 Test Item Value Reference Range Interpretation Comments Blood Culture (test NO GROWTH AFTER 5 code = 85752874) DAYS, FINAL REPORT [facility] CenterBlriver[facility] leukocytes automated count (number/volume)2020-07-17 01:10:00 Test Item Value Reference Range Interpretation Comments White Blood Count (test code = 2.82 10*3/uL 4.8-10.8 6690-2) [facility] CenterBlriverview [facility] clinic erythrocytes automated count (number/volume)2020-07-17 01:10:00 Test Item Value Reference Range Interpretation Comments Red Blood Count (test code = 4.77 10*6/mL 4.3-5.7 789-8) [facility] CenterBlood hemoglobin measurement (moles/volume)2020-07-17 01:10:00 Test Item Value Reference Range Interpretation Comments Hemoglobin (test code = 76683-2) 14.9 g/dL 14.0-18.0 [facility] CenterAutomated blood hematocrit (volume fraction)2020-07-17 01:10:00 Test Item Value Reference Range Interpretation Comments Hematocrit (test code = 4544-3) 43.7 % 38.2-49.6 [facility] CenterAutomated erythrocyte mean corpuscular mstzld5686-86-92 01:10:00 Test Item Value Reference Range Interpretation Comments Mean Corpuscular Volume (test code = 91.6 81-99 787-2) [facility] CenterAutomated erythrocyte mean corpuscular hemoglobin (mass per erythrocyte)2020-07-17 01:10:00 Test Item Value Reference Range Interpretation Comments Mean Corpuscular Hemoglobin (test 31.2 pg 28-32 code = 785-6) [facility] CenterAutonslow [facility] hospitaled erythrocyte mean corpuscular hemoglobin concentration measurement (mass/volume)2020-07-17 01:10:00 Test Item Value Reference Range Interpretation Comments Mean Corpuscular Hemoglobin Concent 34.1 g/dL 31-35 (test code = 786-4) [facility] CenterRDW CcmYc-Rkd3290-08-08 01:10:00 Test Item Value Reference Range Interpretation Comments Red Cell Distribution Width (test code 11.7 % 11.7-14.4 = 50371-3) [facility] CenterAutonslow memorial hospitaled blood platelet count (count/volume)2020-07-17 01:10:00 Test Item Value Reference Range Interpretation Comments Platelet Count (test code = 777-3) 96 10*3/uL 140-360 [facility] Centeromated blood segmented neutrophil count as percentage of total zffucrktcu8836-99-19 01:10:00 Test Item Value Reference Range Interpretation Comments Neutrophils (%) (Auto) (test code = 51.1 % 38.7-80.0 40445-6) [facility] CenterAutomated blood lymphocyte count as percentage ot total dsmplsuibk6112-54-85 01:10:00 Test Item Value Reference Range Interpretation Comments Lymphocytes (%) (Auto) (test code = 37.9 % 18.0-39.1 736-9) [facility] CenterAutomated blood monocyte count as percentage of total rwanntawtm0573-96-29 01:10:00 Test Item Value Reference Range Interpretation Comments Monocytes (%) (Auto) (test code = 11.0 % 4.4-11.3 5905-5) [facility] CenterAutomated blood eosinophil count as percentage of total cslrljxngf0696-20-55 01:10:00 Test Item Value Reference Range Interpretation Comments Eosinophils (%) (Auto) (test code = 0.0 % 0.0-6.0 713-8) [facility] CenterAutomated blood basophil count as percentage of total ruxihkcqak0263-33-39 01:10:00 Test Item Value Reference Range Interpretation Comments Basophils (%) (Auto) (test code = 0.0 % 0.0-1.0 706-2) [facility] CenterFluoroscopic procedure less than one hour orjtlxqj7646-07-45 01:10:00 Test Item Value Reference Range Interpretation Comments IM GRANULOCYTES % (test code = IM 0.0 % 0.0-1.0 GRANULOCYTES %) [facility] CenterAutomated blood neutrophil count 2020-07-17 01:10:00 Test Item Value Reference Range Interpretation Comments Neutrophils # (Auto) (test code = 1.4 2.1-6.9 751-8) [facility] CenterBlood lymphocytes count (number/volume) 2020-07-17 01:10:00 Test Item Value Reference Range Interpretation Comments Lymphocytes # (Auto) (test code = 1.1 1.0-3.2 94341-4) [facility] CenterBlood monocytes automated count (number/volume)2020-07-17 01:10:00 Test Item Value Reference Range Interpretation Comments Monocytes # (Auto) (test code = 742-7) 0.3 0.2-0.8 [facility] CenterAutom[facility] blood eosinophil count 2020-07-17 01:10:00 Test Item Value Reference Range Interpretation Comments Eosinophils # (Auto) (test code = 0.0 0.0-0.4 711-2) [facility] CenterAutomated blood basophil count (count/volume)2020-07-17 01:10:00 Test Item Value Reference Range Interpretation Comments Basophils # (Auto) (test code = 704-7) 0.0 0.0-0.1 [facility] CenterFluoroscopic procedure less than one hour [id number] 01:10:00 Test Item Value Reference Range Interpretation Comments Absolute Immature Granulocyte (auto 0 10*3/uL 0-0.1 (test code = Absolute Immature Granulocyte (auto) [facility] CenterUrine color tafqvtdbrbofr4417-22-78 01:10:00 Test Item Value Reference Range Interpretation Comments Urine Color (test code = 5778-6) YELLOW YELLOW [facility] CenterUrine yltcroq1652-47-93 01:10:00 Test Item Value Reference Range Interpretation Comments Urine Clarity (test code = 61789-0) CLEAR CLEAR [facility] Urine by Test strip 2020-07-17 01:10:00 Test Item Value Reference Range Interpretation Comments Urine Specific [place] (test code = 1.025 1.010-1.025 5811-5) [facility] CenterU[facility] pH measurement by automated test [id number] 01:10:00 Test Item Value Reference Range Interpretation Comments Urine pH (test code = 53210-5) 7 5-7 [facility] CenterUrine leukocyte esterase detection by automated test shvpp3952-35-25 01:10:00 Test Item Value Reference Range Interpretation Comments Urine Leukocyte Esterase (test code = TRACE NEGATIVE 51367-4) [facility] CenterUrine nitrite detection by automated test kwzex4106-68-92 01:10:00 Test Item Value Reference Range Interpretation Comments Urine Nitrite (test code = 74316-0) NEGATIVE NEGATIVE [facility] CenterUrine protein detection by automated test [id number] 01:10:00 Test Item Value Reference Range Interpretation Comments Urine Protein (test code = 34715-8) NEGATIVE NEGATIVE [facility] CenterUrine glucose alakepbif6167-79-24 01:10:00 Test Item Value Reference Range Interpretation Comments Urine Glucose (UA) (test code = NEGATIVE NEGATIVE 2349-9) [facility] CenterUrine ketones detection by automated test hoqot5342-26-27 01:10:00 Test Item Value Reference Range Interpretation Comments Urine Ketones (test code = 38629-7) NEGATIVE NEGATIVE [facility] CenterUrine urobilinogen measurement by test strip (mass/volume)2020-07-17 01:10:00 Test Item Value Reference Range Interpretation Comments Urine Urobilinogen (test code = 0.2 mg/dL 0.2-1 14925-0) [facility] CenterUrine total bilirubin measurement (mass/volume)2020-07-17 01:10:00 Test Item Value Reference Range Interpretation Comments Urine Bilirubin (test code = 1978-6) NEGATIVE NEGATIVE [facility] CenterUrine erythrocytes uisxirqeb7567-10-58 01:10:00 Test Item Value Reference Range Interpretation Comments Urine Blood (test code = 94186-7) NEGATIVE NEGATIVE [facility] CenterAutomated urine sediment leukocyte count by microscopy (number/high power field)2020-07-17 01:10:00 Test Item Value Reference Range Interpretation Comments Urine WBC (test code = 5821-4) 6-10 /[HPF] 0-5 [facility] CenterErythrocytes detection in urine sediment by light jdygujihog3895-92-02 01:10:00 Test Item Value Reference Range Interpretation Comments Urine RBC (test code = 34870-0) 0-5 /[HPF] 0-5 [facility] CenterBacteria detection in urine sediment by light xmootwquyi2822-42-73 01:10:00 Test Item Value Reference Range Interpretation Comments Urine Bacteria (test code = FEW /[HPF] NONE 02688-3) [facility] CenterEpithelial cells detection in urine sediment by light ogxkxklvan3630-01-84 01:10:00 Test Item Value Reference Range Interpretation Comments Urine Epithelial Cells (test code FEW /[LPF] NONE = 36820-0) [facility] plasma sodium measurement (moles/volume)2020-07-17 01:10:00 Test Item Value Reference Range Interpretation Comments Sodium Level (test code = 2951-2) 136 mmol/L 136-145 [facility]viewerum or plasma potassium measurement (moles/volume)2020-07-17 01:10:00 Test Item Value Reference Range Interpretation Comments Potassium Level (test code = 3.9 mmol/L 3.5-5.1 2823-3) [facility]viewerum or plasma chloride measurement (moles/volume)2020-07-17 01:10:00 Test Item Value Reference Range Interpretation Comments Chloride Level (test code = 101 mmol/L 98-107 2075-0) [facility]viewerum or plasma carbon dioxide, total measurement (moles/volume)2020-07-17 01:10:00 Test Item Value Reference Range Interpretation Comments Carbon Dioxide Level (test code = 26 mmol/L 2028-04) [facility]viewerum or plasma anion [id number] 01:10:00 Test Item Value Reference Range Interpretation Comments Anion Gap (test code = 52958-5) 12.9 mmol/L 8-16 [facility]viewerum or plasma urea nitrogen measurement (mass/volume)2020-07-17 01:10:00 Test Item Value Reference Range Interpretation Comments Blood Urea Nitrogen (test code = 11 mg/dL 03-04 3094-0) [facility]erum or plasma creatinine measurement (mass/volume)2020-07-17 01:10:00 Test Item Value Reference Range Interpretation Comments Creatinine (test code = 2160-0) 0.99 mg/dL 0.72-1.25 [facility]erum or plasma urea nitrogen/creatinine mass gndyn0752-02-86 01:10:00 Test Item Value Reference Range Interpretation Comments BUN/Creatinine Ratio (test code = 11 625 3097-3) [facility] CenterEstimated glomerular filtration rate (GFR) hiutojqmtjdgk3610-25-65 01:10:00 Test Item Value Reference Range Interpretation Comments Estimat Glomerular Filtration > 60 mL/min >60 Rate (test code = 254276323) Ranges were taken from the National Kidney Disease Education Program and the National Kidney Foundation literature.Reference ranges:60 or greater: Nlwtvk86- 59 (for 3 consecutive months): Chronic kidneydisease 15 or less: Kidney failure [facility] CenterGlucose isooynbnwkc1436-09-28 01:10:00 Test Item Value Reference Range Interpretation Comments Glucose Level (test code = IKR3234) 97 mg/dL 74-118 [facility]um or plasma calcium measurement (mass/volume)2020-07-17 01:10:00 Test Item Value Reference Range Interpretation Comments Calcium Level (test code = 35875-8) 8.6 mg/dL 8.4-10.2 [facility] CenterFluoroscopic procedure less than one hour sbrakvdv0361-06-66 01:10:00 Test Item Value Reference Range Interpretation Comments Lactic Acid Level (test code = 0.9 mmol/L 0.5-2.0 Lactic Acid Level) [facility]erum or plasma total bilirubin measurement (mass/volume)2020-07-17 01:10:00 Test Item Value Reference Range Interpretation Comments Total Bilirubin (test code = 0.3 mg/dL 0.2-1.2 1975-2) [facility] CenterFluoroscopic procedure less than one hour umndvtnq6194-74-14 01:10:00 Test Item Value Reference Range Interpretation Comments Aspartate Amino Transf (AST/SGOT) 24 [IU]/L 5-34 (test code = Aspartate Amino Transf (AST/SGOT)) [facility]erum or plasma alanine aminotransferase measurement (enzymatic activity/volume)2020-07-17 01:10:00 Test Item Value Reference Range Interpretation Comments Alanine Aminotransferase (ALT/SGPT) 12 [IU]/L 0-55 (test code = 1742-6) [facility]erum or plasma protein measurement (mass/volume)2020-07-17 01:10:00 Test Item Value Reference Range Interpretation Comments Total Protein (test code = 2885-2) 7.1 g/dL 6.5-8.1 [facility]erum or plasma albumin measurement (mass/volume)2020-07-17 01:10:00 Test Item Value Reference Range Interpretation Comments Albumin (test code = 1751-7) 4.2 g/dL 3.5-5.0 [facility] CenterPlasma globulin measurement (mass/volume) 2020-07-17 01:10:00 Test Item Value Reference Range Interpretation Comments Globulin (test code = 54214-2) 2.9 g/dL 2.3-3.5 [facility]um or plasma albumin/globulin mass lzgif7766-07-46 01:10:00 Test Item Value Reference Range Interpretation Comments Albumin/Globulin Ratio (test code = 1.4 0.8-2.0 1759-0) [facility]um or plasma alkaline phosphatase measurement (enzymatic activity/volume)2020-07-17 01:10:00 Test Item Value Reference Range Interpretation Comments Alkaline Phosphatase (test code = 51 [IU]/L 40-150 6768-6) [facility]erum or plasma lipase measurement (enzymatic activity/volume)2020-07-17 01:10:00 Test Item Value Reference Range Interpretation Comments Lipase (test code = 3040-3) 34 U/L 8-78 [facility]viewerum heterophile antibody titer by latex bqgqbczwvayzv7469-16-05 01:10:00 Test Item Value Reference Range Interpretation Comments Monoscreen (test code = 5215-9) NEGATIVE NEGATIVE [facility] CenterHIV 1 and 2 antibody detection qualitative by rapid fcuqssyokqv0581-29-43 01:10:00 Test Item Value Reference Range Interpretation Comments HIV (1&2) Antibody (test code = NON-REACTIVE NONREACTIVE 20835-7) [facility] CenterFluoroscopic procedure less than one hour qntrfyge4105-11-00 01:10:00 Test Item Value Reference Range Interpretation Comments HIV P24 Antigen (test code = HIV NON-REACTIVE NONREACTIVE P24 Antigen) [facility] CenterBlood waujojb4351-70-05 01:10:00 Test Item Value Reference Range Interpretation Comments Blood Culture (test NO GROWTH AFTER 5 code = 45031009) DAYS, FINAL REPORT [facility]Bl[facility] leukocytes automated count (number/volume)2020-07-17 01:10:00 Test Item Value Reference Range Interpretation Comments White Blood Count (test code = 2.82 10*3/uL 4.8-10.8 6690-2) [facility] CenterBlriver[facility] erythrocytes automated count (number/volume)2020-07-17 01:10:00 Test Item Value Reference Range Interpretation Comments Red Blood Count (test code = 4.77 10*6/mL 4.3-5.7 789-8) [facility] CenterBlood hemoglobin measurement (moles/volume)2020-07-17 01:10:00 Test Item Value Reference Range Interpretation Comments Hemoglobin (test code = 52592-3) 14.9 g/dL 14.0-18.0 [facility] CenterAutomated blood hematocrit (volume fraction)2020-07-17 01:10:00 Test Item Value Reference Range Interpretation Comments Hematocrit (test code = 4544-3) 43.7 % 38.2-49.6 [facility] CenterAutomated erythrocyte mean corpuscular rlfyhf0916-17-29 01:10:00 Test Item Value Reference Range Interpretation Comments Mean Corpuscular Volume (test code = 91.6 81-99 787-2) [facility] CenterAutomated erythrocyte mean corpuscular hemoglobin (mass per erythrocyte)2020-07-17 01:10:00 Test Item Value Reference Range Interpretation Comments Mean Corpuscular Hemoglobin (test 31.2 pg 28-32 code = 785-6) [facility] CenterAutomated erythrocyte mean corpuscular hemoglobin concentration measurement (mass/volume)2020-07-17 01:10:00 Test Item Value Reference Range Interpretation Comments Mean Corpuscular Hemoglobin Concent 34.1 g/dL 31-35 (test code = 786-4) [facility] CenterRDW YoeZw-Sdi7917-75-08 01:10:00 Test Item Value Reference Range Interpretation Comments Red Cell Distribution Width (test code 11.7 % 11.7-14.4 = 12566-5) [facility] CenterAutomated blood platelet count (count/volume)2020-07-17 01:10:00 Test Item Value Reference Range Interpretation Comments Platelet Count (test code = 777-3) 96 10*3/uL 140-360 [facility] CenterAutomated blood segmented neutrophil count as percentage of total cxfdoqfkbe8612-56-13 01:10:00 Test Item Value Reference Range Interpretation Comments Neutrophils (%) (Auto) (test code = 51.1 % 38.7-80.0 49853-8) [facility] CenterAutomated blood lymphocyte count as percentage ot total oxlmczezii2175-18-96 01:10:00 Test Item Value Reference Range Interpretation Comments Lymphocytes (%) (Auto) (test code = 37.9 % 18.0-39.1 736-9) [facility] CenterAutomated blood monocyte count as percentage of total xiyoulihys0632-28-27 01:10:00 Test Item Value Reference Range Interpretation Comments Monocytes (%) (Auto) (test code = 11.0 % 4.4-11.3 5905-5) [facility] CenterAutomated blood eosinophil count as percentage of total aeywyxsnrf2395-60-73 01:10:00 Test Item Value Reference Range Interpretation Comments Eosinophils (%) (Auto) (test code = 0.0 % 0.0-6.0 713-8) [facility] CenterAutomated blood basophil count as percentage of total qjxrrodrpo2204-20-70 01:10:00 Test Item Value Reference Range Interpretation Comments Basophils (%) (Auto) (test code = 0.0 % 0.0-1.0 706-2) [facility] CenterFluoroscopic procedure less than one hour mxbwfplq4688-40-01 01:10:00 Test Item Value Reference Range Interpretation Comments IM GRANULOCYTES % (test code = IM 0.0 % 0.0-1.0 GRANULOCYTES %) [facility] CenterAutomated blood neutrophil count 2020-07-17 01:10:00 Test Item Value Reference Range Interpretation Comments Neutrophils # (Auto) (test code = 1.4 2.1-6.9 751-8) [facility] CenterBlood lymphocytes count (number/volume) 2020-07-17 01:10:00 Test Item Value Reference Range Interpretation Comments Lymphocytes # (Auto) (test code = 1.1 1.0-3.2 92491-8) [facility] CenterBl[facility] monocytes automated count (number/volume)2020-07-17 01:10:00 Test Item Value Reference Range Interpretation Comments Monocytes # (Auto) (test code = 742-7) 0.3 0.2-0.8 [facility] CenterAutomated blood eosinophil count 2020-07-17 01:10:00 Test Item Value Reference Range Interpretation Comments Eosinophils # (Auto) (test code = 0.0 0.0-0.4 711-2) [facility] CenterAutomated blood basophil count (count/volume)2020-07-17 01:10:00 Test Item Value Reference Range Interpretation Comments Basophils # (Auto) (test code = 704-7) 0.0 0.0-0.1 [facility] CenterFluoroscopic procedure less than one hour hpvpgxpi4265-50-49 01:10:00 Test Item Value Reference Range Interpretation Comments Absolute Immature Granulocyte (auto 0 10*3/uL 0-0.1 (test code = Absolute Immature Granulocyte (auto) [facility] CenterUrine color iczjgiwptctfb3183-92-14 01:10:00 Test Item Value Reference Range Interpretation Comments Urine Color (test code = 5778-6) YELLOW YELLOW [facility] CenterUrine fbrtcad4720-19-80 01:10:00 Test Item Value Reference Range Interpretation Comments Urine Clarity (test code = 76719-0) CLEAR CLEAR [facility] gravity of Urine by Test strip 2020-07-17 01:10:00 Test Item Value Reference Range Interpretation Comments Urine Specific [place] (test code = 1.025 1.010-1.025 5811-5) [facility] CenterUrine pH measurement by automated test quuez5081-04-07 01:10:00 Test Item Value Reference Range Interpretation Comments Urine pH (test code = 92325-0) 7 5-7 [facility] CenterUrine leukocyte esterase detection by automated test rpyow9150-11-60 01:10:00 Test Item Value Reference Range Interpretation Comments Urine Leukocyte Esterase (test code = TRACE NEGATIVE 76792-4) [facility] CenterUrine nitrite detection by automated test lggot6877-58-20 01:10:00 Test Item Value Reference Range Interpretation Comments Urine Nitrite (test code = 35659-2) NEGATIVE NEGATIVE [facility] CenterUrine protein detection by automated test wdbmk2069-93-64 01:10:00 Test Item Value Reference Range Interpretation Comments Urine Protein (test code = 92951-3) NEGATIVE NEGATIVE [facility] CenterUrine glucose xolullzus5316-31-77 01:10:00 Test Item Value Reference Range Interpretation Comments Urine Glucose (UA) (test code = NEGATIVE NEGATIVE 2349-9) [facility] CenterUrine ketones detection by automated test qzjfz2725-95-17 01:10:00 Test Item Value Reference Range Interpretation Comments Urine Ketones (test code = 27557-7) NEGATIVE NEGATIVE [facility] CenterUrine urobilinogen measurement by test strip (mass/volume)2020-07-17 01:10:00 Test Item Value Reference Range Interpretation Comments Urine Urobilinogen (test code = 0.2 mg/dL 0.2-1 72250-5) [facility] CenterUrine total bilirubin measurement (mass/volume)2020-07-17 01:10:00 Test Item Value Reference Range Interpretation Comments Urine Bilirubin (test code = 1978-6) NEGATIVE NEGATIVE [facility] CenterUrine erythrocytes ccfgegjdm6647-37-47 01:10:00 Test Item Value Reference Range Interpretation Comments Urine Blood (test code = 22728-1) NEGATIVE NEGATIVE [facility] CenterAutomated urine sediment leukocyte count by microscopy (number/high power field)2020-07-17 01:10:00 Test Item Value Reference Range Interpretation Comments Urine WBC (test code = 5821-4) 6-10 /[HPF] 0-5 [facility] CenterErythrocytes detection in urine sediment by light qbbakdhgbv0022-50-73 01:10:00 Test Item Value Reference Range Interpretation Comments Urine RBC (test code = 41822-7) 0-5 /[HPF] 0-5 [facility] CenterBacteria detection in urine sediment by light xzvyqxmmyk8776-88-29 01:10:00 Test Item Value Reference Range Interpretation Comments Urine Bacteria (test code = FEW /[HPF] NONE 35186-4) [facility] CenterEpithelial cells detection in urine sediment by light jjctmhrsmg0199-96-11 01:10:00 Test Item Value Reference Range Interpretation Comments Urine Epithelial Cells (test code FEW /[LPF] NONE = 11124-4) [facility] plasma sodium measurement (moles/volume)2020-07-17 01:10:00 Test Item Value Reference Range Interpretation Comments Sodium Level (test code = 2951-2) 136 mmol/L 136-145 [facility]erum or plasma potassium measurement (moles/volume)2020-07-17 01:10:00 Test Item Value Reference Range Interpretation Comments Potassium Level (test code = 3.9 mmol/L 3.5-5.1 2823-3) [facility]erum or plasma chloride measurement (moles/volume)2020-07-17 01:10:00 Test Item Value Reference Range Interpretation Comments Chloride Level (test code = 101 mmol/L 98-107 5-0) [facility]erum or plasma carbon dioxide, total measurement (moles/volume)2020-07-17 01:10:00 Test Item Value Reference Range Interpretation Comments Carbon Dioxide Level (test code = 26 mmol/L 2027-) [facility]erum or plasma anion sla6727-25-36 01:10:00 Test Item Value Reference Range Interpretation Comments Anion Gap (test code = 62314-8) 12.9 mmol/L 8-16 [facility]erum or plasma urea nitrogen measurement (mass/volume)2020-07-17 01:10:00 Test Item Value Reference Range Interpretation Comments Blood Urea Nitrogen (test code = 11 mg/dL 03-04 3094-0) [facility]erum or plasma creatinine measurement (mass/volume)2020-07-17 01:10:00 Test Item Value Reference Range Interpretation Comments Creatinine (test code = 2160-0) 0.99 mg/dL 0.72-1.25 [facility]erum or plasma urea nitrogen/creatinine mass fvkrn7977-42-58 01:10:00 Test Item Value Reference Range Interpretation Comments BUN/Creatinine Ratio (test code = 11 6-25 3097-3) [facility] CenterEstimated glomerular filtration rate (GFR) wvskiuswpcusa1606-68-04 01:10:00 Test Item Value Reference Range Interpretation Comments Estimat Glomerular Filtration > 60 mL/min >60 Rate (test code = 562751364) Ranges were taken from the National Kidney Disease Education Program and the National Kidney Foundation literature.Reference ranges:60 or greater: Hwisco59- 59 (for 3 consecutive months): Chronic kidneydisease 15 or less: Kidney failure [facility] CenterGlucose rxqhgezzanj2634-72-18 01:10:00 Test Item Value Reference Range Interpretation Comments Glucose Level (test code = EGG2051) 97 mg/dL 74-118 [facility]erum or plasma calcium measurement (mass/volume)2020-07-17 01:10:00 Test Item Value Reference Range Interpretation Comments Calcium Level (test code = 36761-6) 8.6 mg/dL 8.4-10.2 [facility] CenterFluoroscopic procedure less than one hour mdklwqbx3959-26-59 01:10:00 Test Item Value Reference Range Interpretation Comments Lactic Acid Level (test code = 0.9 mmol/L 0.5-2.0 Lactic Acid Level) [facility] or plasma total bilirubin measurement (mass/volume)2020-07-17 01:10:00 Test Item Value Reference Range Interpretation Comments Total Bilirubin (test code = 0.3 mg/dL 0.2-1.2 1975-2) [facility] CenterFluoroscopic procedure less than one hour uxhzetkg2064-93-28 01:10:00 Test Item Value Reference Range Interpretation Comments Aspartate Amino Transf (AST/SGOT) 24 [IU]/L 5-34 (test code = Aspartate Amino Transf (AST/SGOT)) [facility] or plasma alanine aminotransferase measurement (enzymatic activity/volume)2020-07-17 01:10:00 Test Item Value Reference Range Interpretation Comments Alanine Aminotransferase (ALT/SGPT) 12 [IU]/L 0-55 (test code = 1742-6) [facility] or plasma protein measurement (mass/volume)2020-07-17 01:10:00 Test Item Value Reference Range Interpretation Comments Total Protein (test code = 2885-2) 7.1 g/dL 6.5-8.1 [facility] or plasma albumin measurement (mass/volume)2020-07-17 01:10:00 Test Item Value Reference Range Interpretation Comments Albumin (test code = 1751-7) 4.2 g/dL 3.5-5.0 [facility] CenterPlasma globulin measurement (mass/volume) 2020-07-17 01:10:00 Test Item Value Reference Range Interpretation Comments Globulin (test code = 71429-6) 2.9 g/dL 2.3-3.5 [facility] or plasma albumin/globulin mass rqogn5863-53-03 01:10:00 Test Item Value Reference Range Interpretation Comments Albumin/Globulin Ratio (test code = 1.4 0.8-2.0 1759-0) [facility] plasma alkaline phosphatase measurement (enzymatic activity/volume)2020-07-17 01:10:00 Test Item Value Reference Range Interpretation Comments Alkaline Phosphatase (test code = 51 [IU]/L 40-150 6768-6) [facility]um or plasma lipase measurement (enzymatic activity/volume)2020-07-17 01:10:00 Test Item Value Reference Range Interpretation Comments Lipase (test code = 3040-3) 34 U/L 8-78 [facility]viewerum heterophile antibody titer by latex pnvszghdjgbwq9521-86-36 01:10:00 Test Item Value Reference Range Interpretation Comments Monoscreen (test code = 5215-9) NEGATIVE NEGATIVE [facility]HIV 1 and 2 antibody detection qualitative by rapid knqwczhxnbu0914-59-79 01:10:00 Test Item Value Reference Range Interpretation Comments HIV (1&2) Antibody (test code = NON-REACTIVE NONREACTIVE 79233-2) [facility] CenterFluoroscopic procedure less than one hour yudlvrqx0797-52-27 01:10:00 Test Item Value Reference Range Interpretation Comments HIV P24 Antigen (test code = HIV NON-REACTIVE NONREACTIVE P24 Antigen) [facility] CenterBlood fdlpany1887-79-13 01:10:00 Test Item Value Reference Range Interpretation Comments Blood Culture (test NO GROWTH AFTER 5 code = 59979920) DAYS, FINAL REPORT [facility]
--- NOTE | 2021-02-25 18:31 | EDPHYS ---
Physician Documentation [facility] Name: Maximilian Mattson Age: 20 yrs Sex: Male : 2000 Arrival Date: 02/25/2021 Time: 14:23 Bed 24 Private MD: ED Physician Sandip Vazquez HPI: 02/25 16:45 This 20 yrs old Black Male presents to ER via Ambulatory with complaints of Sore Throat.cp 16:45 The patient presents with sore throat. The patient describes throat pain as scratchy. cp Onset: The symptoms/episode began/occurred 2 day(s) ago. Associated signs and symptoms: Pertinent positives: headache, dizziness, Pertinent negatives cough, diarrhea, dysphagia, earache, fever, vomiting. Historical: - Allergies: 14:56 amoxicillin; ca1 - Home Meds: 14:56 None [Active]; ca1 - PMHx: 14:56 None; ca1 - PSHx: 14:56 None; ca1 - Immunization history:: Client reports having NOT received the Covid vaccine. Flu vaccine is up to date. - Social history:: Smoking status: Reported history of juuling and/or vaping. ROS: 16:55 Constitutional: Negative for body aches, chills, fever, poor PO intake. cp 16:55 Eyes: Negative for injury, pain, redness, and discharge. cp 16:55 ENT: Positive for sore throat, Negative for drainage from ear(s), ear pain, sinus congestion, sinus pain, difficulty swallowing, difficulty handling secretions. 16:55 Cardiovascular: Negative for chest pain. 16:55 Respiratory: Negative for cough, shortness of breath, wheezing. 16:55 Abdomen/GI: Negative for abdominal pain, nausea, vomiting, and diarrhea. 16:55 Skin: Negative for rash. 16:55 Neuro: Positive for dizziness, headache, Negative for altered mental status, weakness. 16:55 All other systems are negative. Exam: 17:00 Constitutional: The patient appears in no acute distress, alert, awake, non-toxic, well cp developed, well nourished. 17:00 Head/Face: Normocephalic, atraumatic. cp 17:00 Eyes: Periorbital structures: appear normal, Conjunctiva: normal, no exudate, no injection, Sclera: no appreciated abnormality, Lids and lashes: appear normal, bilaterally. 17:00 ENT: External ear(s): are unremarkable, Ear canal(s): are normal, clear, TM's: dullness, bilaterally, Nose: is normal, Mouth: Lips: moist, Oral mucosa: moist, Posterior pharynx: Airway: no evidence of obstruction, patent, Tonsils: bilaterally enlarged, with erythema, Uvula: midline, erythema, that is moderate, exudate, is not appreciated. 17:00 Neck: ROM/movement: is normal, is supple, no meningismus, no nuchal rigidity. 17:00 Chest/axilla: Inspection: normal, Palpation: is normal, no crepitus, no tenderness. 17:00 Cardiovascular: Rate: normal. 17:00 Respiratory: the patient does not display signs of respiratory distress, Respirations: normal, no use of accessory muscles, no retractions, labored breathing, is not present, Breath sounds: are clear throughout, no decreased breath sounds. 17:00 Abdomen/GI: Exam negative for discomfort, distension, guarding, Inspection: abdomen appears normal. 17:00 Neuro: Orientation: to person, place \\T\\ time. Mentation: is normal. Vital Signs: 14:50 BP 119 / 77; Pulse 77; Resp 16 S; Temp 98.5(TE); Pulse Ox 99% on R/A; Weight 74.84 kg ca1 (R); Height 5 ft. 8 in. (172.72 cm) (R); Pain 4/10; 14:50 Body Mass Index 25.09 (74.84 kg, 172.72 cm) ca1 MDM: 16:18 Patient medically screened. cp 17:00 Differential diagnosis: pablo-cortes virus, group A strep tonsillitis, peritonsillar cp abscess pharyngitis, retropharyngeal abcess. 18:30 Data reviewed: vital signs, nurses notes, lab test result(s), and as a result, I will cp discharge patient. 02/25 14:57 Order name: Strep ca1 02/25 14:57 Order name: Flu ca1 02/25 14:57 Order name: COVID-19 : Document "Date of Symptom Onset" if Symptomatic. ca1 02/25 14:58 Order name: Group A Streptococcus Rapid Sc; Complete Time: 18:21 EDNV 02/25 14:58 Order name: Influenza Screen (A ; Complete Time: 18:21 EDMS 02/25 17:19 Order name: Throat Culture EDMS 02/25 17:44 Order name: SARS-COV-2 RT PCR; Complete Time: 18:21 EDMS Administered Medications: No medications were administered Disposition: 02/26 07:07 Co-signature as Attending Physician, Sandip Vazquez MD I agree with the assessment and kdr plan of care. Disposition Summary: 02/25/21 18:30 Discharge Ordered Location: Home cp Problem: new cp Symptoms: are unchanged cp Condition: Stable cp Diagnosis - Acute tonsillitis, unspecified cp Followup: cp - With: Private Physician - When: 2 - 3 days - Reason: Worsening of condition Discharge Instructions: - Discharge Summary Sheet cp - Tonsillitis cp Forms: - Medication Reconciliation Form cp - Thank You Letter cp - Work release form aa5 - Antibiotic Education cp - Prescription Opioid Use cp Prescriptions: - clarithromycin 500 mg Oral tablet - take 1 tablet by ORAL route every 12 hours for 10 days; 20 tablet; Refills: 0, cp Product Selection Permitted Signatures: Dispatcher [employer] EDNV Sandip Vazquez MD MD [facility] Cayden Jack PA PA cp Marilyn Drummond RN RN ca1 Corrections: (The following items were deleted from the chart) 02/25 16:43 14:58 CORONAVIRUS ordered. [facility] EDNV 16:54 16:54 Orthostatics ordered. cp cp
--- NOTE | 2021-02-25 18:31 | ER ---
Nurse's Notes [facility] Name: Maximilian Mattson Age: 20 yrs Sex: Male : 2000 Arrival Date: 02/25/2021 Time: 14:23 Bed 24 Private MD: Diagnosis: Acute tonsillitis, unspecified Presentation: 02/25 14:50 Chief complaint: Patient states: Woke up this morning with headache, dizzy, lightheaded ca1 and sore throat. Denies fever. Coronavirus screen: Client denies travel out of the [place] in the last 14 days. headache, sore throat, Client presents with at least one sign or symptom that may indicate coronavirus-19. Standard/surgical mask placed on the client. Provider contacted for isolation considerations. Ebola Screen: Patient negative for fever greater than or equal to 101.5 degrees Fahrenheit, and additional compatible Ebola Virus Disease symptoms Patient denies exposure to infectious person. Patient denies travel to an Ebola-affected area in the 21 days before illness onset. No symptoms or risks identified at this time. Initial Sepsis Screen: Does the patient meet any 2 criteria? No. Patient's initial sepsis screen is negative. Does the patient have a suspected source of infection? No. Patient's initial sepsis screen is negative. Risk Assessment: Do you want to hurt yourself or someone else? Patient reports no desire to harm self or others. Onset of symptoms was February 25, 2021. 14:50 Method Of Arrival: Ambulatory ca1 14:50 Acuity: BRO 4 ca1 Historical: - Allergies: 14:56 amoxicillin; ca1 - Home Meds: 14:56 None [Active]; ca1 - PMHx: 14:56 None; ca1 - PSHx: 14:56 None; ca1 - Immunization history:: Client reports having NOT received the Covid vaccine. Flu vaccine is up to date. - Social history:: Smoking status: Reported history of juuling and/or vaping. Screenin:31 Abuse screen: Denies threats or abuse. Denies injuries from another. Nutritional ca1 screening: No deficits noted. Tuberculosis screening: No symptoms or risk factors identified. Fall Risk None identified. Assessment: 16:31 General: Appears in no apparent distress. comfortable, Behavior is calm, cooperative, ca1 appropriate for age. Pain: Complains of pain in face and scalp Pain currently is 6 out of 10 on a pain scale. Pain began this morning. Neuro: Level of Consciousness is awake, alert, obeys commands, Oriented to person, place, time, situation, Reports dizziness, headache. Cardiovascular: Heart tones S1 S2 present Capillary refill < 3 seconds Patient's skin is warm and dry. Rhythm is regular. Cardiovascular: Reports lightheadedness. Respiratory: Airway is patent Respiratory effort is even, unlabored, Respiratory pattern is regular, symmetrical, Breath sounds are clear bilaterally. EENT: Throat is clear is pink. Derm: Skin is intact, is healthy with good turgor, Skin is pink, warm \T\ dry. Musculoskeletal: Circulation, motion, and sensation intact. Capillary refill < 3 seconds. 18:49 Reassessment: Patient is alert, oriented x 3, equal unlabored respirations, skin aa5 warm/dry/pink. Vital Signs: 14:50 BP 119 / 77; Pulse 77; Resp 16 S; Temp 98.5(TE); Pulse Ox 99% on R/A; Weight 74.84 kg ca1 (R); Height 5 ft. 8 in. (172.72 cm) (R); Pain 4/10; 14:50 Body Mass Index 25.09 (74.84 kg, 172.72 cm) ca1 ED Course: 14:23 Patient arrived in ED. am2 14:51 Triage completed. ca1 14:56 Arm band placed on right wrist. ca1 15:11 Cayden Jack PA is PHCP. cp 15:12 Sandip Vazquez MD is Attending Physician. cp 16:19 Marilyn Drummond RN is Primary Nurse. ca1 16:31 Patient has correct armband on for positive identification. Bed in low position. Call ca1 light in reach. Side rails up X 1. 18:49 No provider procedures requiring assistance completed. Patient did not have IV access aa5 during this emergency room visit. Administered Medications: No medications were administered Outcome: 18:30 Discharge ordered by . cp 18:49 Discharged to home ambulatory. aa5 18:49 Condition: stable 18:49 Discharge instructions given to patient, Instructed on discharge instructions, follow up and referral plans. medication usage, Demonstrated understanding of instructions, follow-up care, medications, Prescriptions given X 1. 18:49 Patient left the ED. aa5 Signatures: Brook Donald RN RN aa5 Cayden Jack PA PA cp Moreno, Amanda am2 Marilyn Drummond, RN RN ca1
[2021-02-25 18:55] VITALS: BP 119/77; TEMP 98.5; O2SAT 99
== END 2021-02-25 18:49 | disposition home or self-care (01) ==
LOC: ER 14:21
DX: J03.90 Acute tonsillitis, unspecified (principal); Z20.822 Contact with and (suspected) exposure to COVID-19
CPT/HCPCS: 87070; 87081; 87804; 99282; U0003

== ENCOUNTER 2021-03-19 11:16 | Emergency (ER) | payer SELFPAY ==
--- OUTSIDE RECORDS SUMMARY | 2021-03-19 11:24 | XMS REPORT | Continuity of Care Document ---
:2000 Author Organization [facility] t Address [address] [place] [address] Care Team Providers Name Role Phone NO Primary Care Physician Unavailable Zhao Attending Clinician [phone] Vianey Attending Clinician Unavailable Gita Attending Clinician [phone] Constantin Attending Clinician [phone] Mina Attending Clinician Unavailable Lorena Attending Clinician [phone] Oskar Attending Clinician Unavailable Hitesh Attending Clinician Unavailable Zain Attending Clinician [phone] Beck Attending Clinician Unavailable Jono Attending Clinician Unavailable Sharonda Attending Clinician Unavailable Paul KULKARNI Attending Clinician Unavailable Zhao Unavailable [phone] Gita Unavailable [phone] Zain Unavailable [phone] Payers Payer Name Policy Type Policy Number Effective Date Expiration Date Paul garza Gerardo Ray 11 [id number] 2020 2021 [facility] 0- 100% 00:00:00 00:00:00 [...] Condition Active 2020-12-17 ZhaoDante (BMI 5-10 20:10:[facility] 00:00: ty 00 Health Anal Condition [...] 00:00: ty 00 Health Proctitis Problem Active [facility] Vomiting Problem Active [facility] Lymphadeno Problem Active [facility] S t. adali [facility] Dermatitis Problem Active [facility] S t. medicament [facility] Allergies, Adverse Reactions, Alerts Allergy Allergy Status Severity Reaction(s) Onset Inactive Treating Comm ents Source Name Type Date Date Clinician AMOXICIL Drug Active High Dante MONI allergy Criticali 1-15 Commun i (disorde ty 00:00: ty r) 00 Health amoxicil DA Active [place] 2019-08 [facility] moni 2-29 [place] 00:00: e [...] Community 11:26:26 11:26:26 homeless. Born Health in [facility]. City: [place] . State: [place]. 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 Highest education level: high school graduate. Sex at : Male. Sexual orientation: River. Gender identity: Male. Gender of partner(s): Male. Age of first sexual intercourse: 18. Sexually Active: Yes. sexual orientation 2020-12-17 2020-12-17 [facility] 11:26:26 11:26:26 Health assessment of health 2020-12-17 2020-12-17 Adequate [facility] cy Community literacy (NCQA [facility] 11:26:26 11:26:26 [facility] 2014 Standards, 3C10) PHQ2 Questionairre 2020-12-17 2020-12-17 [facility] Score 11:26:26 11:26:26 Health is there any chance 2020-10-03 2020-10-03 No Legac y Community that you could be 18:03:41 18:03:41 Health ? 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 Medications Ordered Filled Start Stop [...] Hyclate 2-08 Day - 04:06: Patient 00 [facility] Immunizations Ordered Immunization Filled Immunization Date Status Commen ts Source Name Name Prevnar 13 IM 2020-10-03 Completed [facility] unity [id number] 19:17:00 Health Engerix-B IM 20 2020-10-03 Completed [facility] MCG/ML [facility]:15[id number] Vital Signs Vital Name Observation Time Observation Value Comments Source height in 2020-12-17 11:26:26 170.18 cm [facility] centimeters [facility] height percentile 2020-12-17 11:26:26 18 [facility] weight E&M 2020-12-17 11:26:26 174 [lb_av] [facility] weight percentile 2020-12-17 11:26:26 76 [facility] weight in kilograms 2020-12-17 11:26:26 79.09 kg L [facility] E& Health oxygen saturation, 2020-12-17 11:26:26 96 /min [facility] oximetry Health blood pressure, 2020-12-17 11:26:26 53 mm[Hg] [facility] diastolic [facility] blood pressure, 2020-12-17 11:26:26 125 mm[Hg] [facility] systolic Health respiratory rate E&M 2020-12-17 11:26:26 16 /min [facility] pulse rate 2020-12-17 11:26:26 70 /min [facility] temperature E&M 2020-12-17 11:26:26 98.0 [degF] [facility] 2020-12-17 11:26:26 oral [facility] temperature site 2020-10-03 18:03:41 oral [facility] temperature E&M 2020-10-03 18:03:41 97.0 [degF] [facility] blood pressure, 2020-10-03 18:03:41 69 mm[Hg] Legac [facility] diastolic Health blood pressure, 2020-10-03 18:03:41 123 mm[Hg] [facility] systolic Health pulse rate 2020-10-03 18:03:41 76 /min [facility] oxygen saturation, 2020-10-03 18:03:41 96 /min [facility] Health weight E&M 2020-10-03 18:03:41 172.50 [lb_av] [facility] weight percentile 2020-10-03 18:03:41 76 [facility] weight in kilograms 2020-10-03 18:03:41 78.41 kg L [facility] Health height in 2020-10-03 18:03:41 170.18 [facility] centimeters E& Health height percentile 2020-10-03 18:03:41 18 Leg [facility] height in 2020-08-24 10:15:42 170.18 [facility] centimeters E Health height percentile 2020-08-24 10:15:42 18 Leg [facility] oxygen saturation, 2020-08-24 10:15:42 98 /min [facility] Health blood pressure, 2020-08-24 10:15:42 78 mm[Hg] Leg[facility] diastolic Health blood pressure, 2020-08-24 10:15:42 125 mm[Hg] Legac [facility] systolic Health pulse rate 2020-08-24 10:15:42 74 /min [facility] temperature E&M 2020-08-24 10:15:42 98.0 [degF] Legac [facility] Health weight E&M 2020-08-24 10:15:42 159 [lb_av] [facility] weight percentile 2020-08-24 10:15:42 60 Leg [facility] weight in kilograms 2020-08-24 10:15:42 72.27 kg L [facility] Health temperature site 2020-08-24 10:15:42 oral Lega [facility] oxygen saturation, 2020-08-20 11:42:10 98 /min [facility] Health blood pressure, 2020-08-20 11:42:10 77 mm[Hg] Legac [facility] diastolic Health blood pressure, 2020-08-20 11:42:10 123 mm[Hg] Legac [facility] systolic Health respiratory rate E&M 2020-08-20 11:42:10 16 /min [facility] Health pulse rate 2020-08-20 11:42:10 90 /min [facility] temperature E&M 2020-08-20 11:42:10 98.3 [degF] Legac [facility] Health weight E&M 2020-08-20 11:42:10 157 [lb_av] [facility] Health weight percentile 2020-08-20 11:42:10 57 Leg [facility] weight in kilograms 2020-08-20 11:42:10 71.36 kg L [facility] Health height in 2020-08-20 11:42:10 170.18 cm [facility] centimeters [facility] height percentile 2020-08-20 11:42:10 18 Leg [facility] temperature site 2020-08-20 11:42:10 oral Lega cy [facility] oxygen saturation, 2020-08-15 15:03:43 97 /min [facility] oximetry Health respiratory rate E&M 2020-08-15 15:03:43 18 /min [facility] pulse rate 2020-08-15 15:03:43 109 /min [facility] 2020-08-15 15:03:43 98.8 [degF] [facility] weight E&M 2020-08-15 15:03:43 150 [lb_av] [facility] weight percentile 2020-08-15 15:03:43 45 Leg [facility] weight in kilograms 2020-08-15 15:03:43 68.18 kg L [facility] temperature site 2020-08-15 15:03:43 oral Lega cy [facility] Oxygen saturation by 2020-08-07 11:07:00 99 /min [facility] - Pulse oximetry Patients [facility] Weight 2020-08-07 11:07:00 160 [lb_av] [facility] Patients [facility] BMI (Body Mass 2020-08-07 11:07:00 24.3 kg/m2 [facility] Index) Patients [facility] Oxygen saturation by 2020-07-27 11:06:00 100 /min [facility] - Pulse oximetry Patients [facility] Weight 2020-07-27 11:06:00 160 [lb_av] [facility] BMI (Body Mass 2020-07-27 11:06:00 24.3 kg/m2 [facility] - Index) Patients [facility] Body Temperature 2020-07-17 03:58:00 99.0 [degF] [facility] - Patients [facility] Heart Rate 2020-07-17 03:58:00 67 /min [facility] Patients [facility] Respiratory rate 2020-07-17 03:58:00 19 /min [facility] - Patients [facility] BP Systolic 2020-07-17 03:58:00 106 mm[Hg] [facility] - Patients [facility] BP Diastolic 2020-07-17 03:58:00 46 mm[Hg] [facility] - Patients [facility] Oxygen saturation by 2020-07-17 03:58:00 98 /min [facility] - Pulse oximetry Patients [facility] Weight 2020-07-17 00:59:00 160 [lb_av] [facility] BMI (Body Mass 2020-07-17 00:59:00 24.3 kg/m2 [facility] - Index) Patients [facility] Procedures Procedure Date / Time Performing Clinician Source Performed Injection, ceftriaxone 2020-12-17 12:12:44 Chiquis Churchill y [facility] sodium, per 500 mg Health Venipuncture 2020-12-17 12:09:04 Chiquis Churchill [facility] 2020-10-26 09:41:46 Ender Francis Me mmunity Education/Supportive Health Counseling Primary Care Medical 2020-10-10 14:36:52 Traci Krishnamurthy [facility] Medical 2020-10-10 09:08:16 Traci Krishnamurthy [facility] Primary Care - Service 2020-10-06 14:08:33 Traci Krishnamurthy y Community Planning [facility] Primary Care - 2020-10-06 14:08:33 Traci Krishnamurthy [facility] Health [facility] Primary Care Medical 2020-10-06 14:08:33 [facility] Case Management [facility] Addl Vx - Ix admin via 2020-10-03 19:16:13 Rebeca Pelayo ID IM or jet injects Health without counseling by physician Prevnar 13 Intramuscular 2020-10-03 19:16:13 Rebeca Pelayo evelia [facility] Suspension Health First Vx - Ix admin via 2020-10-03 19:16:13 JacquesivoryRebeca burnette Tiffanie martin [facility] ID IM or jet injects Health without counseling by physician Engerix-B Injection 2020-10-03 19:13:17 Rebeca Pelayo [facility] Suspension 20 MCG/ML Health Vaccines Ordered - Print 2020-10-03 18:53:47 Rebeca Pelayo evelia [facility] Consent/Declination Health Forms Vision 2020-10-03 18:52:19 Rebeca Pelayo Com munity Health Dental - Internal 2020-10-03 18:51:33 Rebeca Pelayo C ommunity [facility] Health 2020-10-03 08:48:25 Ender Francis [facility] Education/Supportive Health Counseling Primary Care Medical 2020-10-02 09:45:11 Raghu Traci [facility] Primary Care Medical 2020-09-28 14:58:33 Funmilayo Landrum [facility] Case [facility] Health Meeting with Case Manger 2020-09-26 17:09:57 [facility] 2020-08-24 12:30:21 Provider, [facility] Education/Supportive Health Services Health Counseling Venipuncture 2020-08-24 10:52:59 Chiquis Churchill Critical access hospital Health 2020-08-21 15:57:45 Ender Francis [facility] Education/Supportive Health Counseling Health 2020-08-21 09:21:39 Ender Francis [facility] Education/Supportive Health Counseling HIV Navigation 2020-08-20 15:17:10 Shima Pittman Critical access hospital Venipuncture 2020-08-15 15:53:58 Shima Pittman Critical access hospital Computed tomography of 2020-07-17 00:00:00 RENITA Maradiaga - abdomen and pelvis with Patients Medical contrast Center Plan of Care Planned Activity Planned Date Details Comments Source Instructions Allergic Reaction [facility] Encounters Start End Encounter Admission Attending Care Care Encounter Source Date/Time Date/Time Type Type Clinicians Facility Department ID 2020-12-17 2020-12-17 Office Chiquis Churchill [facility] [id number] [facility] 00:00:00 00:00:00 Visit Valentine Winters [id number] [facility] 2020-10-03 2020-10-05 Office Rebeca Pelayo [facility] [id number] [facility] 00:00:00 00:00:00 Visit Gabi Killian [id number] [facility] Gia Schmitt 2020-08-24 2020-08-24 Office Chiquis Churchill [facility] [id number] [facility] 00:00:00 00:00:00 Visit Sujit Proctor [id number] [facility] 2020-08-20 2020-08-20 Office Shima Pittman [facility] [id number] [facility] 00:00[facility] Nirmal De La [facility] 2020-08-15 2020-08-17 Office Shima Pittman [facility] [id number] [facility] 00:00:00 00:00:00 Visit Ivonne Mcdonough 1010 6 [facility] 2020-08-07 2020-08-07 Departed [facility] [id number] 11:23:00 12:06:00 Emergency Patients 87 [facility] 2020-07-27 2020-07-27 Departed [facility] [id number] 10:58:00 11:20:00 Emergency Patients 91 [facility] - Room [facility] 2020-07-17 2020-07-17 [facility] [id number] 01:14:00 04:19:00 Emergency AMBICA Patients 49 [facility] - Room [facility] Results Test Description Test Time Test Comments Results Result Comments Source albumin, serum 2020-12-19 10:32:00 Test Item Value Reference Range Interpretation Comme nts albumin, serum (test code = 1751-7) 4.4 g/dL 4.1-5.2 [facility] total, [id number] 10:32:00 Test Item Value Reference Range Interpretation Comments protein, total, serum (test code = 7.1 g/dL 6.0-8.5 2885-2) [facility]calcium, [id number] 10:32:00 Test Item Value Reference Range Interpretation Comments calcium, serum (test code = 1999-) 9.6 mg/dL 8.7-10.2 [facility]carbon dioxide, venous [id number] 10:32:00 Test Item Value Reference Range Interpretation Comments carbon dioxide, venous blood (test 24 mmol/L code = 2027-1) [facility] Healthchloride, [id number] 10:32:00 Test Item Value Reference Range Interpretation Comments chloride, serum (test code = 100 mmol/L 96-106 5-0) [facility]potassium, [id number] 10:32:00 Test Item Value Reference Range Interpretation Comments potassium, serum (test code = 4.4 mmol/L 3.5-5.2 2823-3) [facility]sodium, [id number] 10:32:00 Test Item Value Reference Range Interpretation Comments sodium, serum (test code = 2951-2) 139 mmol/L 134-144 [facility] Healthurea nitrogen/creatinine ratio, [id number] 10:32:00 Test Item Value Reference Range Interpretation Comments urea nitrogen/creatinine 12 (unknown unit) 9-20 ratio, serum (test code = 3097-3) [facility] HealtheGFR if [id number] 10:32:00 Test Item Value Reference Range Interpretation Comments eGFR if 120 mL/min/{1.73 m2} >59 (test code = 24932-1) [facility] HealthEstimated Glomerular Filtration Rate (calc)2020-12-19 10:32:00 Test Item Value Reference Range Interpretation Comments Estimated Glomerular 104 mL/min/{1.73 m2} >59 Filtration Rate (calc) (test code = 50564-8) [facility] Healthcreatinine, [id number] 10:32:00 Test Item Value Reference Range Interpretation Comments creatinine, serum (test code = 1.04 mg/dL 0.76-1.27 2160-0) [facility] Healthurea nitrogen, [id number] 10:32:00 Test Item Value Reference Range Interpretation Comments urea nitrogen, blood (test code = 12 mg/dL 6-20 3094-0) [facility] Healthblood glucose, [id number] 10:32:00 Test Item Value Reference Range Interpretation Comments blood glucose, random (test code = 89 mg/dL 65-99 2339-0) [facility] Healthimmature granulocytes, percentage of total cells, blood 2020-12-19 10:32:00 Test Item Value Reference Range Interpretation Comments immature granulocytes, percentage of 0 % total cells, blood (test code = 06633-7) [facility]basophil count, [id number] 10:32:00 Test Item Value Reference Range Interpretation Comments basophil count, absolute (test 0.0 x10E3/uL 0.0-0.2 code = 10078-6) [facility] HealthEosinophil Absolute [id number] 10:32:00 Test Item Value Reference Range Interpretation Comments Eosinophil Absolute Count (test 0.2 X10E3/UL 0.0-0.4 code = 96605-9) [facility] Healthmonocyte count, blood, [id number] 10:32:00 Test Item Value Reference Range Interpretation Comments monocyte count, blood, automated 0.4 X10E3/UL 0.1-0.9 (test code = 742-7) [facility] Healthlymphocyte count, blood, [id number] 10:32:00 Test Item Value Reference Range Interpretation Comments lymphocyte count, blood, 1.1 X10E3/UL 0.7-3.1 automated (test code = 731-0) [facility] HealthAbsolute [id number] 10:32:00 Test Item Value Reference Range Interpretation Comments Absolute Neutrophils (test code 2.8 X10E3/UL 1.4-7.0 = 86734-9) [facility] Healthbasophils as percent of blood [id number] 10:32:00 Test Item Value Reference Range Interpretation Comments basophils as percent of blood 0 % leukocytes (test code = 707-0) [facility] Healtheosinophils as percent of blood [id number] 10:32:00 Test Item Value Reference Range Interpretation Comments eosinophils as percent of blood 3 % leukocytes (test code = 713-8) [facility] Healthmonocytes as percent of blood [id number] 10:32:00 Test Item Value Reference Range Interpretation Comments monocytes as percent of blood 9 % leukocytes (test code = 5905-5) [facility] Healthlymphocytes as percent of blood [id number] 10:32:00 Test Item Value Reference Range Interpretation Comments lymphocytes as percent of blood 25 % leukocytes (test code = 736-9) [facility] Healthneutrophils as percent of blood [id number] 10:32:00 Test Item Value Reference Range Interpretation Comments neutrophils as percent of blood 63 % leukocytes (test code = 770-8) [facility] Healthplatelet [id number] 10:32:00 Test Item Value Reference Range Interpretation Comments platelet count (test code = 208 X10E3/UL 150-450 777-3) [facility] Healthred blood cell distribution [id number] 10:32:00 Test Item Value Reference Range Interpretation Comments red blood cell distribution width 12.8 % 11.6-15.4 (test code = 788-0) [facility] corpuscular hemoglobin concentration, [id number] 10:32:00 Test Item Value Reference Range Interpretation Comments mean corpuscular hemoglobin 34.9 G/DL 31.5-35.7 concentration, RBC (test code = 786-4) [facility], [id number] 10:32:00 Test Item Value Reference Range Interpretation Comments mean corpuscular hemoglobin, RBC 31.6 pg 26.6-33.0 (test code = 785-6) [facility] corpuscular volume, [id number] 10:32:00 Test Item Value Reference Range Interpretation Comments mean corpuscular volume, RBC (test code 91 fL 79-97 = 787-2) [facility] Healthhematocrit, [id number] 10:32:00 Test Item Value Reference Range Interpretation Comments hematocrit, blood (test code = 4544-3) 45.5 % 37.5-51.0 [facility]hemoglobin, [id number] 10:32:00 Test Item Value Reference Range Interpretation Comments hemoglobin, blood (test code = 15.9 g/dL 13.0-17.7 718-7) [facility] Healtherythrocyte (RBC) [id number] 10:32:00 Test Item Value Reference Range Interpretation Comments erythrocyte (RBC) count (test 5.03 X10E6/UL 4.14-5.80 code = 789-8) [facility] Healthleukocyte count, [id number] 10:32:00 Test Item Value Reference Range Interpretation Comments leukocyte count, blood (test 4.5 X10E3/UL 3.4-10.8 code = 6690-2) [facility] HealthCD4/CD8 [id number] 10:32:00 Test Item Value Reference Range Interpretation Comments CD4/CD8 ratio (test code 1.09 (unknown unit) 0.92-3.72 = 72999) [facility] HealthT-suppressor cells (CD8) as percent of blood lymphocytes 2020-12-19 10:32:00 Test Item Value Reference Range Interpretation Comments T-suppressor cells (CD8) as percent of 35.2 % 12.0-35.5 blood lymphocytes (test code = 3517) [facility] Healthabsolute [id number] 10:32:00 Test Item Value Reference Range Interpretation Comments absolute CD8 (test code = 387 (unknown unit) 547-668 96188) [facility] HealthT-helper cells (CD4) as percent of blood lymphocytes 2020-12-19 10:32:00 Test Item Value Reference Range Interpretation Comments T-helper cells (CD4) as percent of 38.5 % 30.8-58.5 blood lymphocytes (test code = 8123-2) [facility] HealthT-helper cells (CD4) [id number] 10:32:00 Test Item Value Reference Range Interpretation Comments T-helper cells (CD4) count (test code 424 /UL 359-1519 = 25278-7) [facility] Healthhepatitis B surface [id number] 10:32:00 Test Item Value Reference Range Interpretation Comments hepatitis B surface antigen (test Negative Negative code = 79) [facility] Healthhepatitis C antibody, [id number] 10:32:00 Test Item Value Reference Range Interpretation Comments hepatitis C antibody, serum (test code <0.1 0.0-0.9 = 5199-5) [facility] Healthrapid plasma reagin antibody, [id number] 10:32:00 Test Item Value Reference Range Interpretation Comments rapid plasma reagin antibody, Non Reactive Non Reactive serum (test code = 5291-0) [facility] HealthHIV-1RNA, serum, by PCR, [id number] 10:32:00 Test Item Value Reference Range Interpretation Comments HIV-1RNA, serum, by PCR, quantitative 140 /mL (test code = 53257) [facility] HealthLDL cholesterol, [id number] 10:32:00 Test Item Value Reference Range Interpretation Comments LDL cholesterol, serum (test code = 88 mg/dL 0-109 2088-1) [facility] Healthvery low density [id number] 10:32:00 Test Item Value Reference Range Interpretation Comments very low density lipoproteins (test 12 mg/dL 5-40 code = 1-7) [facility] HealthHDL cholesterol, [id number] 10:32:00 Test Item Value Reference Range Interpretation Comments HDL cholesterol, serum (test code = 47 mg/dL >39 2084-9) [facility] Healthtriglyceride, serum, [id number] 10:32:00 Test Item Value Reference Range Interpretation Comments triglyceride, serum, fasting (test 60 mg/dL 0-89 code = 2571-8) [facility] Healthcholesterol, [id number] 10:32:00 Test Item Value Reference Range Interpretation Comments cholesterol, serum (test code = 147 mg/dL 718-638 1142-3) [facility] Healthalanine aminotransferase (SGPT), [id number] 10:32:00 Test Item Value Reference Range Interpretation Comments alanine aminotransferase (SGPT), serum 12 1/L 0-44 (test code = 1742-6) [facility] Healthaspartate aminotransferase (SGOT), [id number] 10:32:00 Test Item Value Reference Range Interpretation Comments aspartate aminotransferase (SGOT), 16 1/L 0-40 serum (test code = 1920-8) [facility]alkaline phosphatase, [id number] 10:32:00 Test Item Value Reference Range Interpretation Comments alkaline phosphatase, serum (test code 73 1/L 39-117 = 1783-0) [facility]bilirubin, serum, ceibp3972-57-76 10:32:00 Test Item Value Reference Range Interpretation Comments bilirubin, serum, total (test code 0.5 mg/dL 0.0-1.2 = 1975-2) [facility]albumin/globulin ratio, [id number] 10:32:00 Test Item Value Reference Range Interpretation Comments albumin/globulin ratio, 1.6 (unknown unit) 1.2-2.2 serum (test code = 1759-0) [facility]globulin, qbhih4600-59-26 10:32:00 Test Item Value Reference Range Interpretation Comments globulin, serum (test code 2.7 (unknown unit) 1.5-4.5 = 2336-6) [facility]rapid plasma reagin antibody, [id number] 12:44:00 Test Item Value Reference Range Interpretation Comments rapid plasma reagin antibody, Non Reactive Non Reactive serum (test code = 5291-0) [facility] HealthHERPES SIMPLEX VIRUS IDENTIFIED (PT; XXX; QL; )2020-12-17 12:17:00 Test Item Value Reference Range Interpretation Comments HERPES SIMPLEX VIRUS IDENTIFIED (PT; TYP1 A XXX; QL; ) (test code = 3557) [facility] HealthNeisseria gonorrhoeae, throat mvbrdyd4661-23-64 12:17:00 Test Item Value Reference Range Interpretation Comments Neisseria gonorrhoeae, throat Negative Negative culture (test code = 3553) [facility] HealthGonorrhea Culture Xgbrbu1694-67-14 12:17:00 Test Item Value Reference Range Interpretation Comments Gonorrhea Culture Rectum (test code Negative Negative = 40949113) [facility]bilirubin, serum, [id number] 12:08:00 Test Item Value Reference Range Interpretation Comments bilirubin, serum, direct (test 0.11 mg/dL 0.00-0.40 code = 1967-7) [facility]rapid plasma reagin antibody, knsda8626-97-27 12:08:00 Test Item Value Reference Range Interpretation Comments rapid plasma reagin antibody, Non Reactive Non Reactive serum (test code = 5291-0) [facility]hepatitis C antibody, zzkbn4897-99-07 12:08:00 Test Item Value Reference Range Interpretation Comments hepatitis C antibody, serum (test code <0.1 0.0-0.9 = 5199-5) [facility] HealthQuantiferon Gold TB blood test for tuberculosis screening 2020-08-24 12:08:00 Test Item Value Reference Range Interpretation Comments Quantiferon Gold TB blood test for Negative Negative tuberculosis screening (test code = 60387-1) [facility]creatinine, random, cxrgz5620-10-79 12:08:00 Test Item Value Reference Range Interpretation Comments creatinine, random, urine (test 88.3 mg/dL code = 2161-8) [facility]LDL cholesterol, udrec9094-86-94 12:08:00 Test Item Value Reference Range Interpretation Comments LDL cholesterol, serum (test code = 87 mg/dL 0-109 2088-1) [facility]very low density ccbzzhafqxvr5030-50-25 12:08:00 Test Item Value Reference Range Interpretation Comments very low density lipoproteins (test 10 mg/dL 5-40 code = 2090-7) [facility]HDL cholesterol, wrwer3719-40-68 12:08:00 Test Item Value Reference Range Interpretation Comments HDL cholesterol, serum (test code = 49 mg/dL >39 2084-9) [facility]htriglyceride, serum, pkoujmk1411-39-33 12:08:00 Test Item Value Reference Range Interpretation Comments triglyceride, serum, fasting (test 47 mg/dL 0-89 code = 2571-8) [facility]cholesterol, ywvgk4577-46-61 12:08:00 Test Item Value Reference Range Interpretation Comments cholesterol, serum (test code = 146 mg/dL 586-913 5951-3) [facility]bacteria, urine fcakfwrwkx0978-44-51 12:08:00 Test Item Value Reference Range Interpretation Comments bacteria, urine microscopy (test None seen None seen/Few code = 5769-5) [facility]mucus on ehxeriauhu7538-44-05 12:08:00 Test Item Value Reference Range Interpretation Comments mucus on urinalysis (test code = Present 8247-9) [facility]althepithelial cells, cqpxq9715-15-22 12:08:00 Test Item Value Reference Range Interpretation Comments epithelial cells, urine (test code = 0-10 0-10 5787-7) [facility] HealthRBC, Gejfv9682-06-86 12:08:00 Test Item Value Reference Range Interpretation Comments RBC, Urine (test code = 48039-5) 0-2 /hpf 0-2 [facility]urinalysis, microscopic qtxzplwgfjt1057-36-99 12:08:00 Test Item Value Reference Range Interpretation Comments urinalysis, microscopic See below: examination (test code = 72547-3) [facility]nitrate, jrrmb7430-98-45 12:08:00 Test Item Value Reference Range Interpretation Comments nitrate, urine (test code = 03047-6) Negative Negative [facility] Healthurobilinogen, urine, semiquantitative (dipstick) 2020-08-24 12:08:00 Test Item Value Reference Range Interpretation Comments urobilinogen, urine, 0.2 (unknown 0.2-1.0 semiquantitative (dipstick) unit) (test code = 5818-0) [facility]bilirubin, nbkyy0136-23-91 12:08:00 Test Item Value Reference Range Interpretation Comments bilirubin, urine (test code = Negative Negative 5770-3) [facility]ketones, urine, by test obhyl8057-14-16 12:08:00 Test Item Value Reference Range Interpretation Comments ketones, urine, by test strip (test Negative Negative code = 5797-6) [facility]glucose, urine, aljzivsfcvkvwflc4588-38-88 12:08:00 Test Item Value Reference Range Interpretation Comments glucose, urine, semiquantitative Negative Negative (test code = 5792-7) [facility] Healthprotein, urine, semiquantitative (dipstick)2020-08-24 12:08:00 Test Item Value Reference Range Interpretation Comments protein, urine, 6.5 (unknown semiquantitative (dipstick) unit) (test code = 1753-3) [facility]leukocyte esterase, urine, by fqknkpki2289-85-32 12:08:00 Test Item Value Reference Range Interpretation Comments leukocyte esterase, urine, by dipstick 1+ Negative A (test code = 5799-2) [facility]appearance, jwrhn2643-86-80 12:08:00 Test Item Value Reference Range Interpretation Comments appearance, urine (test code = 5767-9) Clear Clear [facility]urine eojfe3099-63-53 12:08:00 Test Item Value Reference Range Interpretation Comments urine color (test code = 5778-6) Yellow Yellow [facility]pH, urine, twflkrzkfztubjbd6186-74-84 12:08:00 Test Item Value Reference Range Interpretation Comments pH, urine, semiquantitative 6.5 (unknown 5.0-7.5 (test code = 5803-2) unit) [facility]specific gravity, body ooehj5722-87-44 12:08:00 Test Item Value Reference Range Interpretation Comments specific gravity, body 1.022 (unknown unit) 1.005-1.030 fluid (test code = 2964-5) [facility]alanine aminotransferase (SGPT), qcapz7151-58-44 12:08:00 Test Item Value Reference Range Interpretation Comments alanine aminotransferase (SGPT), serum 21 1/L 0-44 (test code = 1742-6) [facility] Healthaspartate aminotransferase (SGOT), ubefy4433-82-97 12:08:00 Test Item Value Reference Range Interpretation Comments aspartate aminotransferase (SGOT), 20 1/L 0-40 serum (test code = 1920-8) [facility]alkaline phosphatase, jrybr8754-21-32 12:08:00 Test Item Value Reference Range Interpretation Comments alkaline phosphatase, serum (test code 57 1/L 39-117 = 1783-0) [facility]bilirubin, serum, qxkoz4486-38-07 12:08:00 Test Item Value Reference Range Interpretation Comments bilirubin, serum, total (test code 0.3 mg/dL 0.0-1.2 = 1975-2) [facility]albumin/globulin ratio, ykpnx1515-01-82 12:08:00 Test Item Value Reference Range Interpretation Comments albumin/globulin ratio, 1.8 (unknown unit) 1.2-2.2 serum (test code = 1759-0) [facility]globulin, xtuib0125-96-44 12:08:00 Test Item Value Reference Range Interpretation Comments globulin, serum (test code 2.6 (unknown unit) 1.5-4.5 = 2336-6) [facility] Healthalbumin, agxtq4967-87-49 12:08:00 Test Item Value Reference Range Interpretation Comments albumin, serum (test code = 1751-7) 4.7 g/dL 4.1-5.2 [facility] Healthprotein, total, abwwy6368-34-82 12:08:00 Test Item Value Reference Range Interpretation Comments protein, total, serum (test code = 7.3 g/dL 6.0-8.5 2885-2) [facility] Healthcalcium, [id number] 12:08:00 Test Item Value Reference Range Interpretation Comments calcium, serum (test code = 1999-8) 9.4 mg/dL 8.7-10.2 [facility]carbon dioxide, venous xqlmm3602-70-42 12:08:00 Test Item Value Reference Range Interpretation Comments carbon dioxide, venous blood (test 26 mmol/L 20-29 code = 2027-1) [facility]chloride, gjhjr6801-36-31 12:08:00 Test Item Value Reference Range Interpretation Comments chloride, serum (test code = 100 mmol/L 96-106 2075-0) [facility]potassium, xkkuj4691-65-23 12:08:00 Test Item Value Reference Range Interpretation Comments potassium, serum (test code = 4.2 mmol/L 3.5-5.2 2823-3) [facility]sodium, zbghq0574-89-71 12:08:00 Test Item Value Reference Range Interpretation Comments sodium, serum (test code = 2951-2) 140 mmol/L 134-144 [facility]urea nitrogen/creatinine ratio, wdcvr1697-57-31 12:08:00 Test Item Value Reference Range Interpretation Comments urea nitrogen/creatinine 20 (unknown unit) 9-20 ratio, serum (test code = 3097-3) [facility] HealtheGFR if Rrjifvuk4067-54-76 12:08:00 Test Item Value Reference Range Interpretation Comments eGFR if 153 mL/min/{1.73 m2} >59 (test code = 95776-9) [facility] HealthEstimated Glomerular Filtration Rate (calc)2020-08-24 12:08:00 Test Item Value Reference Range Interpretation Comments Estimated Glomerular 132 mL/min/{1.73 m2} >59 Filtration Rate (calc) (test code = 46187-7) [facility]creatinine, pmrla2160-93-98 12:08:00 Test Item Value Reference Range Interpretation Comments creatinine, serum (test code = 0.76 mg/dL 0.76-1.27 2160-0) [facility] Healthurea nitrogen, jiend4415-15-91 12:08:00 Test Item Value Reference Range Interpretation Comments urea nitrogen, blood (test code = 15 mg/dL 6-20 3094-0) [facility]blood glucose, dvxyqy6485-27-58 12:08:00 Test Item Value Reference Range Interpretation Comments blood glucose, random (test code = 86 mg/dL 65-99 2339-0) [facility] Healthimmature granulocytes, percentage of total cells, blood 2020-08-24 12:08:00 Test Item Value Reference Range Interpretation Comments immature granulocytes, percentage of 0 % total cells, blood (test code = 92056-5) [facility]basophil count, asphheay7082-24-40 12:08:00 Test Item Value Reference Range Interpretation Comments basophil count, absolute (test 0.1 x10E3/uL 0.0-0.2 code = 91049-1) [facility] HealthEosinophil Absolute Svmqh6158-90-60 12:08:00 Test Item Value Reference Range Interpretation Comments Eosinophil Absolute Count (test 0.1 X10E3/UL 0.0-0.4 code = 77699-7) [facility] Healthmonocyte count, blood, mrrsuxets0835-64-30 12:08:00 Test Item Value Reference Range Interpretation Comments monocyte count, blood, automated 0.6 X10E3/UL 0.1-0.9 (test code = 742-7) [facility]lymphocyte count, blood, xfiitstyd9378-06-43 12:08:00 Test Item Value Reference Range Interpretation Comments lymphocyte count, blood, 1.7 X10E3/UL 0.7-3.1 automated (test code = 731-0) [facility] HealthAbsolute Salsjajtxxi1946-86-67 12:08:00 Test Item Value Reference Range Interpretation Comments Absolute Neutrophils (test code 3.6 X10E3/UL 1.4-7.0 = 43977-7) [facility]basophils as percent of blood tifqsybtku1913-15-21 12:08:00 Test Item Value Reference Range Interpretation Comments basophils as percent of blood 1 % leukocytes (test code = 707-0) [facility] Healtheosinophils as percent of blood ivqscvhxmg4278-96-00 12:08:00 Test Item Value Reference Range Interpretation Comments eosinophils as percent of blood 2 % leukocytes (test code = 713-8) [facility] Healthmonocytes as percent of blood ulsbgnodej5987-05-73 12:08:00 Test Item Value Reference Range Interpretation Comments monocytes as percent of blood 9 % leukocytes (test code = 5905-5) [facility]lymphocytes as percent of blood jybrpkqtrv1694-99-42 12:08:00 Test Item Value Reference Range Interpretation Comments lymphocytes as percent of blood 28 % leukocytes (test code = 736-9) [facility] Healthneutrophils as percent of blood iekjjwgqgt1206-63-01 12:08:00 Test Item Value Reference Range Interpretation Comments neutrophils as percent of blood 60 % leukocytes (test code = 770-8) [facility]platelet pwhtv0766-24-68 12:08:00 Test Item Value Reference Range Interpretation Comments platelet count (test code = 163 X10E3/UL 150-450 777-3) [facility]red blood cell distribution knssb3838-83-10 12:08:00 Test Item Value Reference Range Interpretation Comments red blood cell distribution width 12.9 % 11.6-15.4 (test code = 788-0) [facility] corpuscular hemoglobin concentration, [id number] 12:08:00 Test Item Value Reference Range Interpretation Comments mean corpuscular hemoglobin 34.0 G/DL 31.5-35.7 concentration, RBC (test code = 786-4) [facility] corpuscular hemoglobin, [id number] 12:08:00 Test Item Value Reference Range Interpretation Comments mean corpuscular hemoglobin, RBC 31.3 pg 26.6-33.0 (test code = 785-6) [facility] corpuscular volume, [id number] 12:08:00 Test Item Value Reference Range Interpretation Comments mean corpuscular volume, RBC (test code 92 fL 79-97 = 787-2) [facility]hematocrit, ybdia5269-72-71 12:08:00 Test Item Value Reference Range Interpretation Comments hematocrit, blood (test code = 4544-3) 41.8 % 37.5-51.0 [facility]hemoglobin, ltnyq2461-40-17 12:08:00 Test Item Value Reference Range Interpretation Comments hemoglobin, blood (test code = 14.2 g/dL 13.0-17.7 718-7) [facility] Healtherythrocyte (RBC) myqlh0060-79-60 12:08:00 Test Item Value Reference Range Interpretation Comments erythrocyte (RBC) count (test 4.54 X10E6/UL 4.14-5.80 code = 789-8) [facility]leukocyte count, vjhdo7041-60-65 12:08:00 Test Item Value Reference Range Interpretation Comments leukocyte count, blood (test 6.0 X10E3/UL 3.4-10.8 code = 6690-2) [facility] HealthT-helper cells (CD4) as percent of blood lymphocytes 2020-08-24 12:08:00 Test Item Value Reference Range Interpretation Comments T-helper cells (CD4) as percent of 19.2 % 30.8-58.5 L blood lymphocytes (test code = 8123-2) [facility] HealthT-helper cells (CD4) ppozq5144-43-69 12:08:00 Test Item Value Reference Range Interpretation Comments T-helper cells (CD4) count (test code 326 /UL 359-1519 L = 73403-5) [facility] HealthCD4/CD8 hlpdc4236-33-75 12:08:00 Test Item Value Reference Range Interpretation Comments CD4/CD8 ratio (test code 0.28 (unknown unit) 0.92-3.72 L = 00917) [facility] HealthT-suppressor cells (CD8) as percent of blood lymphocytes 2020-08-24 12:08:00 Test Item Value Reference Range Interpretation Comments T-suppressor cells (CD8) as percent of 68.8 % 12.0-35.5 H blood lymphocytes (test code = 3517) [facility]absolute [id number] 12:08:00 Test Item Value Reference Range Interpretation Comments absolute CD8 (test code = 1170 (unknown unit) 109-897 H 65965) [facility]hepatitis A antibody, cmdqw4021-85-10 12:08:00 Test Item Value Reference Range Interpretation Comments hepatitis A antibody, total (test Positive Negative A code = 75) [facility], xuuzf4114-58-18 12:08:00 Test Item Value Reference Range Interpretation Comments hepatitis B core antibody, total Negative Negative (test code = 77) [facility] surface sgajidb2649-65-93 12:08:00 Test Item Value Reference Range Interpretation Comments hepatitis B surface antigen (test Negative Negative code = 79) [facility] western drlo9635-04-34 12:08:00 Test Item Value Reference Range Interpretation Comments HIV-2 antibodies, western blot (test Negative Negative code = 33225) [facility]HIV-1/HIV-2 Ab, lztyq4228-38-76 12:08:00 Test Item Value Reference Range Interpretation Comments HIV-1/HIV-2 Ab, serum (test code = Positive Negative A 3399) [facility] (Chemiluminescent Microparticle Immuno Assay) 2020-08-24 12:08:00 Test Item Value Reference Range Interpretation Comments HIV-CMIA (Chemiluminescent Reactive Non Reactive A Microparticle Immuno Assay) (test code = 113719) [facility] [id number] 12:08:00 Test Item Value Reference Range Interpretation Comments human leukocyte antigen B57 (test Negative code = 225660) [facility]htoxoplasma gondii antibody, VkT2106-19-32 12:08:00 Test Item Value Reference Range Interpretation Comments toxoplasma gondii antibody, IgG (test <3.0 0.0-7.1 code = 2430) [facility]hepatitis B surface bdrcwwru3281-25-53 12:08:00 Test Item Value Reference Range Interpretation Comments hepatitis B surface antibody Non Reactive (test code = 78) [facility] genotype sfnmfa5780-31-93 12:08:00 Test Item Value Reference Range Interpretation Comments HIV genotype result (test code = GENRTI ) [facility], serum, by PCR, sqrhryqrhupv5139-03-20 12:08:00 Test Item Value Reference Range Interpretation Comments HIV-1RNA, serum, by PCR, 621967 /mL quantitative (test code = 34880) [facility] HealthWBC urine on flbxgzndzk5783-91-05 12:08:00 Test Item Value Reference Range Interpretation Comments WBC urine on microscopy (test code 11-30 /hpf 0-5 A = 1016) [facility] HealthGonorrhea Culture Tcpejq1922-48-07 11:08:00 Test Item Value Reference Range Interpretation Comments Gonorrhea Culture Rectum (test code Negative Negative = 24031022) [facility]hepatitis C antibody, mnubm0683-50-45 16:26:00 Test Item Value Reference Range Interpretation Comments hepatitis C antibody, serum (test code <0.1 0.0-0.9 = 5199-5) [facility]rapid plasma reagin antibody, hcjjx8059-51-85 16:26:00 Test Item Value Reference Range Interpretation Comments rapid plasma reagin antibody, Non Reactive Non Reactive serum (test code = 5291-0) [facility] HealthNeisseria gonorrhoeae DNA newkz2071-18-25 16:26:00 Test Item Value Reference Range Interpretation Comments Neisseria gonorrhoeae DNA probe Negative Negative (test code = 52226-9) [facility]chlamydia DNA xffmf0488-85-95 16:26:00 Test Item Value Reference Range Interpretation Comments chlamydia DNA probe (test code = Negative Negative 72473-2) [facility]bacteria, urine ndgxlzboup1141-06-15 16:26:00 Test Item Value Reference Range Interpretation Comments bacteria, urine microscopy (test None seen None seen/Few code = 5769-5) [facility]mucus on zlacdsarow9247-25-41 16:26:00 Test Item Value Reference Range Interpretation Comments mucus on urinalysis (test code = Present 8247-9) [facility]althepithelial cells, ydrgx9323-78-53 16:26:00 Test Item Value Reference Range Interpretation Comments epithelial cells, urine (test code = 0-10 0-10 5787-7) [facility] HealthRBC, Nxovd5076-59-44 16:26:00 Test Item Value Reference Range Interpretation Comments RBC, Urine (test code = 10180-0) 0-2 /hpf 0-2 [facility]urinalysis, microscopic bazuvgchyqs8788-65-92 16:26:00 Test Item Value Reference Range Interpretation Comments urinalysis, microscopic See below: examination (test code = 48260-7) [facility]nitrate, wpcyj8661-93-53 16:26:00 Test Item Value Reference Range Interpretation Comments nitrate, urine (test code = 18978-4) Negative Negative [facility] Healthurobilinogen, urine, semiquantitative (dipstick) 2020-08-15 16:26:00 Test Item Value Reference Range Interpretation Comments urobilinogen, urine, 0.2 (unknown 0.2-1.0 semiquantitative (dipstick) unit) (test code = 5818-0) [facility]bilirubin, pmrvq1491-37-60 16:26:00 Test Item Value Reference Range Interpretation Comments bilirubin, urine (test code = Negative Negative 5770-3) [facility]ketones, urine, by test wzcxy5453-57-41 16:26:00 Test Item Value Reference Range Interpretation Comments ketones, urine, by test strip (test Negative Negative code = 5797-6) [facility]glucose, urine, hyssxczebtfxvxbd9387-35-05 16:26:00 Test Item Value Reference Range Interpretation Comments glucose, urine, semiquantitative Negative Negative (test code = 5792-7) [facility]protein, urine, semiquantitative (dipstick)2020-08-15 16:26:00 Test Item Value Reference Range Interpretation Comments protein, urine, semiquantitative Trace Negative/Trace (dipstick) (test code = 1753-3) [facility]leukocyte esterase, urine, by dcwlhruz7378-25-36 16:26:00 Test Item Value Reference Range Interpretation Comments leukocyte esterase, urine, by dipstick Trace Negative A (test code = 5799-2) [facility]appearance, omwmh7122-08-20 16:26:00 Test Item Value Reference Range Interpretation Comments appearance, urine (test code = 5767-9) Cloudy Clear A [facility]urine cfaot2338-25-49 16:26:00 Test Item Value Reference Range Interpretation Comments urine color (test code = 5778-6) Yellow Yellow [facility]pH, urine, mgnbqiselixheplh9144-95-10 16:26:00 Test Item Value Reference Range Interpretation Comments pH, urine, semiquantitative 7.5 (unknown 5.0-7.5 (test code = 5803-2) unit) [facility]specific gravity, body mldcg6251-63-51 16:26:00 Test Item Value Reference Range Interpretation Comments specific gravity, body 1.026 (unknown unit) 1.005-1.030 fluid (test code = 2964-5) [facility]alanine aminotransferase (SGPT), dlbmw6515-15-62 16:26:00 Test Item Value Reference Range Interpretation Comments alanine aminotransferase (SGPT), serum 42 1/L 0-44 (test code = 1742-6) [facility] Healthaspartate aminotransferase (SGOT), gbslf3951-03-64 16:26:00 Test Item Value Reference Range Interpretation Comments aspartate aminotransferase (SGOT), 22 1/L 0-40 serum (test code = 1920-8) [facility]alkaline phosphatase, nplou6355-48-36 16:26:00 Test Item Value Reference Range Interpretation Comments alkaline phosphatase, serum (test code 70 1/L 39-117 = 1783-0) [facility]bilirubin, serum, caige6496-31-53 16:26:00 Test Item Value Reference Range Interpretation Comments bilirubin, serum, total (test code 0.5 mg/dL 0.0-1.2 = 1975-2) [facility]albumin/globulin ratio, zofwy4473-72-29 16:26:00 Test Item Value Reference Range Interpretation Comments albumin/globulin ratio, 1.5 (unknown unit) 1.2-2.2 serum (test code = 1759-0) [facility] Healthglobulin, xtckc1289-77-36 16:26:00 Test Item Value Reference Range Interpretation Comments globulin, serum (test code 3.3 (unknown unit) 1.5-4.5 = 2336-6) [facility]albumin, hiroo3697-46-74 16:26:00 Test Item Value Reference Range Interpretation Comments albumin, serum (test code = 1751-7) 4.8 g/dL 4.1-5.2 [facility]protein, total, abrgg1119-81-98 16:26:00 Test Item Value Reference Range Interpretation Comments protein, total, serum (test code = 8.1 g/dL 6.0-8.5 2885-2) [facility]calcium, mojdt0936-40-09 16:26:00 Test Item Value Reference Range Interpretation Comments calcium, serum (test code = 2000-03) 9.7 mg/dL 8.7-10.2 [facility]carbon dioxide, venous mhsme3302-03-79 16:26:00 Test Item Value Reference Range Interpretation Comments carbon dioxide, venous blood (test 19 mmol/L 20-29 L code = 2026-1) [facility] Healthchloride, cirfn6817-69-15 16:26:00 Test Item Value Reference Range Interpretation Comments chloride, serum (test code = 103 mmol/L 96-106 5-0) [facility] Healthpotassium, azcwl8688-06-17 16:26:00 Test Item Value Reference Range Interpretation Comments potassium, serum (test code = 4.3 mmol/L 3.5-5.2 3-3) [facility]sodium, txkaq4621-63-42 16:26:00 Test Item Value Reference Range Interpretation Comments sodium, serum (test code = 2951-2) 138 mmol/L 134-144 [facility] Healthurea nitrogen/creatinine ratio, qbnlz5440-62-87 16:26:00 Test Item Value Reference Range Interpretation Comments urea nitrogen/creatinine 11 (unknown unit) 9-20 ratio, serum (test code = 3097-3) [facility] HealtheGFR if Fpixujpi4821-24-55 16:26:00 Test Item Value Reference Range Interpretation Comments eGFR if 135 mL/min/{1.73 m2} >59 (test code = 51523-5) [facility] HealthEstimated Glomerular Filtration Rate (calc)2020-08-15 16:26:00 Test Item Value Reference Range Interpretation Comments Estimated Glomerular 117 mL/min/{1.73 m2} >59 Filtration Rate (calc) (test code = 78492-1) [facility]creatinine, psvwo2924-25-61 16:26:00 Test Item Value Reference Range Interpretation Comments creatinine, serum (test code = 0.94 mg/dL 0.76-1.27 2159-0) [facility] Healthurea nitrogen, cgbzb8688-67-62 16:26:00 Test Item Value Reference Range Interpretation Comments urea nitrogen, blood (test code = 10 mg/dL 6-20 3094-0) [facility]blood glucose, pzuyan5073-71-25 16:26:00 Test Item Value Reference Range Interpretation Comments blood glucose, random (test code = 95 mg/dL 65-99 2339-0) [facility]immature granulocytes, percentage of total cells, blood 2020-08-15 16:26:00 Test Item Value Reference Range Interpretation Comments immature granulocytes, percentage of 1 % total cells, blood (test code = 10685-6) [facility]basophil count, phcocvem5760-76-18 16:26:00 Test Item Value Reference Range Interpretation Comments basophil count, absolute (test 0.1 x10E3/uL 0.0-0.2 code = 43527-2) [facility] HealthEosinophil Absolute Izpvd9612-05-98 16:26:00 Test Item Value Reference Range Interpretation Comments Eosinophil Absolute Count (test 0.2 X10E3/UL 0.0-0.4 code = 44745-5) [facility]monocyte count, blood, czrphklyy7612-27-20 16:26:00 Test Item Value Reference Range Interpretation Comments monocyte count, blood, automated 1.1 X10E3/UL 0.1-0.9 H (test code = 742-7) [facility]lymphocyte count, blood, carbqysnj5918-34-65 16:26:00 Test Item Value Reference Range Interpretation Comments lymphocyte count, blood, 4.4 X10E3/UL 0.7-3.1 H automated (test code = 731-0) [facility] HealthAbsolute Ezirokufogb8526-70-36 16:26:00 Test Item Value Reference Range Interpretation Comments Absolute Neutrophils (test code 5.3 X10E3/UL 1.4-7.0 = 19257-6) [facility]basophils as percent of blood repxfzwmvv3224-90-69 16:26:00 Test Item Value Reference Range Interpretation Comments basophils as percent of blood 1 % leukocytes (test code = 707-0) [facility]altheosinophils as percent of blood awnbjwduyr4867-59-09 16:26:00 Test Item Value Reference Range Interpretation Comments eosinophils as percent of blood 2 % leukocytes (test code = 713-8) [facility] Healthmonocytes as percent of blood calxzrgjel1024-57-45 16:26:00 Test Item Value Reference Range Interpretation Comments monocytes as percent of blood 10 % leukocytes (test code = 5905-5) [facility]lymphocytes as percent of blood heknzejpgj5612-34-94 16:26:00 Test Item Value Reference Range Interpretation Comments lymphocytes as percent of blood 39 % leukocytes (test code = 736-9) [facility]neutrophils as percent of blood gqplptwnrs5949-52-65 16:26:00 Test Item Value Reference Range Interpretation Comments neutrophils as percent of blood 47 % leukocytes (test code = 770-8) [facility]platelet xacgv9488-87-59 16:26:00 Test Item Value Reference Range Interpretation Comments platelet count (test code = 210 X10E3/UL 150-450 777-3) [facility]red blood cell distribution ypeoj4334-59-89 16:26:00 Test Item Value Reference Range Interpretation Comments red blood cell distribution width 12.9 % 11.6-15.4 (test code = 788-0) [facility] corpuscular hemoglobin concentration, VOF0259-59-08 16:26:00 Test Item Value Reference Range Interpretation Comments mean corpuscular hemoglobin 34.4 G/DL 31.5-35.7 concentration, RBC (test code = 786-4) [facility] corpuscular hemoglobin, IZS2981-14-94 16:26:00 Test Item Value Reference Range Interpretation Comments mean corpuscular hemoglobin, RBC 31.1 pg 26.6-33.0 (test code = 785-6) [facility] corpuscular volume, YNF0054-17-94 16:26:00 Test Item Value Reference Range Interpretation Comments mean corpuscular volume, RBC (test code 90 fL 79-97 = 787-2) [facility]hematocrit, kxbau3817-44-89 16:26:00 Test Item Value Reference Range Interpretation Comments hematocrit, blood (test code = 4544-3) 48.3 % 37.5-51.0 [facility]hemoglobin, uwcol8453-41-65 16:26:00 Test Item Value Reference Range Interpretation Comments hemoglobin, blood (test code = 16.6 g/dL 13.0-17.7 718-7) [facility] Healtherythrocyte (RBC) obbsk7771-74-43 16:26:00 Test Item Value Reference Range Interpretation Comments erythrocyte (RBC) count (test 5.34 X10E6/UL 4.14-5.80 code = 789-8) [facility] Healthleukocyte count, xgirl4545-70-85 16:26:00 Test Item Value Reference Range Interpretation Comments leukocyte count, blood (test 11.1 X10E3/UL 3.4-10.8 H code = 6690-2) [facility] Healthphencyclidine screen, jlvhh6725-75-65 16:26:00 Test Item Value Reference Range Interpretation Comments phencyclidine screen, urine (test Negative Cutoff=25 code = 3936-2) [facility]opiates, urine, uelenxmwsfqanwtk8809-83-84 16:26:00 Test Item Value Reference Range Interpretation Comments opiates, urine, semiquantitative Negative Fjykjl=440 (test code = 3879-4) [facility] Healthcannabinoid screen, vfrjp9408-95-21 16:26:00 Test Item Value Reference Range Interpretation Comments cannabinoid screen, urine (test code Negative Cutoff=50 = 3426-4) [facility]benzodiazepine screen, bfaaw4065-90-91 16:26:00 Test Item Value Reference Range Interpretation Comments benzodiazepine screen, urine (test Negative Hhbqlj=507 code = 3390-2) [facility]amphetamine screen, iassc5245-15-30 16:26:00 Test Item Value Reference Range Interpretation Comments amphetamine screen, urine (test code Negative Spisfo=8232 = 3349-8) [facility] Healthhepatitis B surface cfaldvt1208-67-32 16:26:00 Test Item Value Reference Range Interpretation Comments hepatitis B surface antigen (test Negative Negative code = 79) [facility] HealthHIV-2 antibodies, western lnmu1055-04-87 16:26:00 Test Item Value Reference Range Interpretation Comments HIV-2 antibodies, western blot (test Negative Negative code = 24349) [facility] HealthHIV-1/HIV-2 Ab, mwozx1856-60-32 16:26:00 Test Item Value Reference Range Interpretation Comments HIV-1/HIV-2 Ab, serum (test code = Positive Negative A 3399) [facility] HealthHIV-CMIA (Chemiluminescent Microparticle Immuno Assay) 2020-08-15 16:26:00 Test Item Value Reference Range Interpretation Comments HIV-CMIA (Chemiluminescent Reactive Non Reactive A Microparticle Immuno Assay) (test code = 414274) [facility] HealthW urine on mcnpmtzinb6283-72-56 16:26:00 Test Item Value Reference Range Interpretation Comments WBC urine on microscopy (test code 6-10 /hpf 0-5 A = 1016) [facility]alcohol, eoddo6130-82-91 16:26:00 Test Item Value Reference Range Interpretation Comments alcohol, urine (test code = 2458) Negative % Cutoff=0.020 [facility]cocaine, nuxyq8655-18-53 16:26:00 Test Item Value Reference Range Interpretation Comments cocaine, urine (test code = 3292) Negative Rrkslp=750 [facility]barbiturates screen, xiguc8036-61-61 16:26:00 Test Item Value Reference Range Interpretation Comments barbiturates screen, urine (test Negative Rktipk=551 code = 2460) [facility] HealthBASIC METABOLIC UXFFZ9083-90-51 17:17:00 Test Item Value Reference Range Interpretation [...] GLOMERULAR FILTRATION > 60 mL/min >=60 Estima trevor GFR by RATE (test code = GFR) using Modified MDRD formula.Chronic kidney disease is defined as [facility] er kidney damageor GFR <60 mL/min/1.73 m2 for >3 months. CREATININE (test code 0.83 mg/dL 0.55-1.3 N = CREAT) BUN/CREATININE RATIO 13.3 10-20 N (test code = BUN/CREA) CALCIUM (test code = 9.2 mg/dL 8.4-10.2 N CA) MONO [id number] 17:13:00 Test Item Value Reference Range Interpretation Comments MONO SCREEN (test code = MONO) NEGATIVE NEGATIVE CBC W/AUTO SOAD3213-03-42 17:08:00 Test Item Value Reference Range Interpretation [...] 0.0-0.2 N Streptococcus pyogenes antigen detection in imottb5918-43-21 11:16:00 Test Item Value Reference Range Interpretation Comments Group A Streptococcus Screen (test NEGATIVE NEGATIVE code = 50707-8) [facility]PT[facility] LGEUXE3703-36-00 05:08:00 Test Item Value Reference Range Interpretation Comments STREPTOCOCCUS DYSGALACTIAE NEGATIVE FOR G/C NEGATIVE (test code = STREPGC) STREPA MOLECULAR (test NEGATIVE FOR GRP A NEGATIVE code = STREPAMOL) COVID 19 INHOUSE [id number] 12:14:00 Test Item Value Reference Range Interpretation Comments COVID 19 INHOUSE AG (test code = NEGATIVE [id number]) CHEST SINGLE (PORTABLE)2020-07-17 02:54:00 [facility] 2000 Sex: [place] [address] Patient Name: JANY MAGANA MR #: [id number] : 2000 Age/Sex: 20/M Req #: [id number] Adm Physician: Ordered by: SHYNAN KULKARNI DO Report #: [id number] Location: ER Room/Bed: Procedure: [id number] DX/CHESTSINGLE (PORTABLE) Exam Date: 07/17/20 Exam Time: [...] virus A and B antigen identification by wrmkvingpsypseyiov1505-08-84 02:45:00 Test Item Value Reference Range Interpretation Comments Influenza Virus Types A,B Antigen NEGATIVE NEGATIVE (test code = 68043-5) [facility] CenterIn[facility] virus A and B antigen identification by dzujhsfgidthcwuqnx1404-59-85 02:45:00 Test Item Value Reference Range Interpretation Comments Influenza Virus Types A,B Antigen NEGATIVE NEGATIVE (test code = 53567-6) [facility] CenterInfluenza virus A and B antigen identification by aqimikhdpexzfvqzos1432-96-24 02:45:00 Test Item Value Reference Range Interpretation Comments Influenza Virus Types A,B Antigen NEGATIVE NEGATIVE (test code = 70043-7) [facility] CenterInfluenza virus A and B antigen identification by tnfmgmtgtpuecibekz5087-37-51 02:45:00 Test Item Value Reference Range Interpretation Comments Influenza Virus Types A,B Antigen NEGATIVE NEGATIVE (test code = 18853-3) [facility] CenterCT [facility]BDOMEN/PELVIS [id number] 02:39:00 [facility] : 2000 Sex: M [facility] [address] [address] Patient Name: JANY MAGANA MR #: [id number] : 2000 Age/Sex: 20/M Req #: [id number] [facility] Physician: Ordered by: SHYANN KULKARNI DO Report #: [id number] Location: ER Room/Bed: Procedure: [id number] CT/CT ABDOMEN/PELVIS W Exam Date: 07/17/20 Exam Time: 144 REPORT STATUS: Signed EXAM: CT Abdomen and Pelvis WITH contrast INDICATION: Y abd pain [id number] COMPARISON: None. TECHNIQUE: Abdomen and pelvis [...] on 07/17/20253 COPY TO: SHYANN KULKARNI DOBlood lymphocytes count (number/volume)2020-07-17 01:10:00 Test Item Value Reference Range Interpretation Comments Lymphocytes # (Auto) (test code = 1.1 1.0-3.2 54877-1) [facility] monocytes automated count (number/volume)2020-07-17 01:10:00 Test Item Value Reference Range Interpretation Comments Monocytes # (Auto) (test code = 742-7) 0.3 0.2-0.8 [facility] CenterAutomated blood eosinophil count 2020-07-17 01:10:00 Test Item Value Reference Range Interpretation Comments Eosinophils # (Auto) (test code = 0.0 0.0-0.4 711-2) [facility] CenterAutomated blood basophil count (count/volume)2020-07-17 01:10:00 Test Item Value Reference Range Interpretation Comments Basophils # (Auto) (test code = 704-7) 0.0 0.0-0.1 [facility] CenterFluoroscopic procedure less than one hour dzcwrrlp0445-08-48 01:10:00 Test Item Value Reference Range Interpretation Comments Absolute Immature Granulocyte (auto 0 10*3/uL 0-0.1 (test code = Absolute Immature Granulocyte (auto) [facility] CenterUrine color yxqlpvmpgqaqi2210-16-55 01:10:00 Test Item Value Reference Range Interpretation Comments Urine Color (test code = 5778-6) YELLOW YELLOW [facility] CenterUrine aqrdvfu0282-00-58 01:10:00 Test Item Value Reference Range Interpretation Comments Urine Clarity (test code = 73123-6) CLEAR CLEAR [facility]Allenpecific gravity of Urine by Test strip 2020-07-17 01:10:00 Test Item Value Reference Range Interpretation Comments Urine Specific Odon (test code = 1.025 1.010-1.025 5811-5) [facility] CenterUrine pH measurement by automated test svdzh8699-91-32 01:10:00 Test Item Value Reference Range Interpretation Comments Urine pH (test code = 24383-0) 7 5-7 [facility] CenterUrine leukocyte esterase detection by automated test fjzqi6659-73-64 01:10:00 Test Item Value Reference Range Interpretation Comments Urine Leukocyte Esterase (test code = TRACE NEGATIVE 80032-4) [facility] CenterUrine nitrite detection by automated test hrild1929-01-21 01:10:00 Test Item Value Reference Range Interpretation Comments Urine Nitrite (test code = 92136-9) NEGATIVE NEGATIVE [facility] CenterUrine protein detection by automated test zrjno7569-78-34 01:10:00 Test Item Value Reference Range Interpretation Comments Urine Protein (test code = 80513-5) NEGATIVE NEGATIVE [facility] CenterUrine glucose zftaetsxv6013-37-13 01:10:00 Test Item Value Reference Range Interpretation Comments Urine Glucose (UA) (test code = NEGATIVE NEGATIVE 2349-9) [facility] CenterUrine ketones detection by automated test igxyo7786-56-62 01:10:00 Test Item Value Reference Range Interpretation Comments Urine Ketones (test code = 45340-7) NEGATIVE NEGATIVE [facility] CenterUrine urobilinogen measurement by test strip (mass/volume)2020-07-17 01:10:00 Test Item Value Reference Range Interpretation Comments Urine Urobilinogen (test code = 0.2 mg/dL 0.2-1 13956-3) [facility] CenterUrine total bilirubin measurement (mass/volume)2020-07-17 01:10:00 Test Item Value Reference Range Interpretation Comments Urine Bilirubin (test code = 1978-6) NEGATIVE NEGATIVE [facility] CenterUrine erythrocytes lwowcmkfe4849-31-69 01:10:00 Test Item Value Reference Range Interpretation Comments Urine Blood (test code = 72705-5) NEGATIVE NEGATIVE [facility] CenterAutomated urine sediment leukocyte count by microscopy (number/high power field)2020-07-17 01:10:00 Test Item Value Reference Range Interpretation Comments Urine WBC (test code = 5821-4) 6-10 /[HPF] 0-5 [facility] CenterErythrocytes detection in urine sediment by light mgsthzsrlw5401-14-18 01:10:00 Test Item Value Reference Range Interpretation Comments Urine RBC (test code = 28656-8) 0-5 /[HPF] 0-5 [facility] CenterBacteria detection in urine sediment by light ezcspqwhrg8440-30-70 01:10:00 Test Item Value Reference Range Interpretation Comments Urine Bacteria (test code = FEW /[HPF] NONE 53819-9) [facility] CenterEpithelial cells detection in urine sediment by light tkplfvekrr1250-46-07 01:10:00 Test Item Value Reference Range Interpretation Comments Urine Epithelial Cells (test code FEW /[LPF] NONE = 10005-5) [facility]Allenerum or plasma sodium measurement (moles/volume)2020-07-17 01:10:00 Test Item Value Reference Range Interpretation Comments Sodium Level (test code = 2951-2) 136 mmol/L 136-145 [facility] McAllenerum or plasma potassium measurement (moles/volume)2020-07-17 01:10:00 Test Item Value Reference Range Interpretation Comments Potassium Level (test code = 3.9 mmol/L 3.5-5.1 2823-3) [facility] McAllenerum or plasma chloride measurement (moles/volume)2020-07-17 01:10:00 Test Item Value Reference Range Interpretation Comments Chloride Level (test code = 101 mmol/L 98-107 2075-0) [facility] McAllenerum or plasma carbon dioxide, total measurement (moles/volume)2020-07-17 01:10:00 Test Item Value Reference Range Interpretation Comments Carbon Dioxide Level (test code = 26 mmol/L 2027-9) [facility] McAllenerum or plasma anion aue5119-94-93 01:10:00 Test Item Value Reference Range Interpretation Comments Anion Gap (test code = 94373-7) 12.9 mmol/L 8-16 [facility] McAllenerum or plasma urea nitrogen measurement (mass/volume)2020-07-17 01:10:00 Test Item Value Reference Range Interpretation Comments Blood Urea Nitrogen (test code = 11 mg/dL 03-04 3094-0) [facility]Allenerum or plasma creatinine measurement (mass/volume)2020-07-17 01:10:00 Test Item Value Reference Range Interpretation Comments Creatinine (test code = 2160-0) 0.99 mg/dL 0.72-1.25 [facility]Allenerum or plasma urea nitrogen/creatinine mass aypdg1348-82-72 01:10:00 Test Item Value Reference Range Interpretation Comments BUN/Creatinine Ratio (test code = 11 6-25 3097-3) [facility] CenterEstimated glomerular filtration rate (GFR) qvgmsaexuybyh5917-35-24 01:10:00 Test Item Value Reference Range Interpretation Comments Estimat Glomerular Filtration > 60 mL/min >60 Rate (test code = 894693990) Ranges were taken from the National Kidney Disease Education Program and the National Kidney Foundation literature.Reference ranges:60 or greater: Zpvmij62- 59 (for 3 consecutive months): Chronic kidneydisease 15 or less: Kidney failure [facility] CenterGlucose okkxfuvgtkb4404-50-64 01:10:00 Test Item Value Reference Range Interpretation Comments Glucose Level (test code = XXC7208) 97 mg/dL 74-118 [facility]Allenerum or plasma calcium measurement (mass/volume)2020-07-17 01:10:00 Test Item Value Reference Range Interpretation Comments Calcium Level (test code = 72469-8) 8.6 mg/dL 8.4-10.2 [facility] CenterFluoroscopic procedure less than one hour ftrjljjv6727-29-25 01:10:00 Test Item Value Reference Range Interpretation Comments Lactic Acid Level (test code = 0.9 mmol/L 0.5-2.0 Lactic Acid Level) [facility]enerum or plasma total bilirubin measurement (mass/volume)2020-07-17 01:10:00 Test Item Value Reference Range Interpretation Comments Total Bilirubin (test code = 0.3 mg/dL 0.2-1.2 1975-2) [facility] CenterFluoroscopic procedure less than one hour umuvkhmy6770-12-05 01:10:00 Test Item Value Reference Range Interpretation Comments Aspartate Amino Transf (AST/SGOT) 24 [IU]/L 5-34 (test code = Aspartate Amino Transf (AST/SGOT)) [facility]enerum or plasma alanine aminotransferase measurement (enzymatic activity/volume)2020-07-17 01:10:00 Test Item Value Reference Range Interpretation Comments Alanine Aminotransferase (ALT/SGPT) 12 [IU]/L 0-55 (test code = 1742-6) [facility]Allenerum or plasma protein measurement (mass/volume)2020-07-17 01:10:00 Test Item Value Reference Range Interpretation Comments Total Protein (test code = 2885-2) 7.1 g/dL 6.5-8.1 [facility]enerum or plasma albumin measurement (mass/volume)2020-07-17 01:10:00 Test Item Value Reference Range Interpretation Comments Albumin (test code = 1751-7) 4.2 g/dL 3.5-5.0 [facility] CenterPlasma globulin measurement (mass/volume) 2020-07-17 01:10:00 Test Item Value Reference Range Interpretation Comments Globulin (test code = 49346-2) 2.9 g/dL 2.3-3.5 [facility]Allenerum or plasma albumin/globulin mass klzwu6821-52-66 01:10:00 Test Item Value Reference Range Interpretation Comments Albumin/Globulin Ratio (test code = 1.4 0.8-2.0 1759-0) [facility]Allenerum or plasma alkaline phosphatase measurement (enzymatic activity/volume)2020-07-17 01:10:00 Test Item Value Reference Range Interpretation Comments Alkaline Phosphatase (test code = 51 [IU]/L 40-150 6768-6) [facility]Allenerum or plasma lipase measurement (enzymatic activity/volume)2020-07-17 01:10:00 Test Item Value Reference Range Interpretation Comments Lipase (test code = 3040-3) 34 U/L 8-78 [facility] McAllenerum heterophile antibody titer by latex vlftngpfzfsui7829-88-11 01:10:00 Test Item Value Reference Range Interpretation Comments Monoscreen (test code = 5215-9) NEGATIVE NEGATIVE [facility] CenterHIV 1 and 2 antibody detection qualitative by rapid nmlqymajwmv5542-93-96 01:10:00 Test Item Value Reference Range Interpretation Comments HIV (1&2) Antibody (test code = NON-REACTIVE NONREACTIVE 09592-8) [facility] CenterFluoroscopic procedure less than one hour qaumhejj9149-96-91 01:10:00 Test Item Value Reference Range Interpretation Comments HIV P24 Antigen (test code = HIV NON-REACTIVE NONREACTIVE P24 Antigen) [facility] CenterBlood leukocytes automated count (number/volume)2020-07-17 01:10:00 Test Item Value Reference Range Interpretation Comments White Blood Count (test code = 2.82 10*3/uL 4.8-10.8 6690-2) [facility] CenterBlood erythrocytes automated count (number/volume)2020-07-17 01:10:00 Test Item Value Reference Range Interpretation Comments Red Blood Count (test code = 4.77 10*6/mL 4.3-5.7 789-8) [facility] CenterBlood hemoglobin measurement (moles/volume)2020-07-17 01:10:00 Test Item Value Reference Range Interpretation Comments Hemoglobin (test code = 53745-1) 14.9 g/dL 14.0-18.0 [facility] CenterAutomated blood hematocrit (volume fraction)2020-07-17 01:10:00 Test Item Value Reference Range Interpretation Comments Hematocrit (test code = 4544-3) 43.7 % 38.2-49.6 [facility] CenterAutomated erythrocyte mean corpuscular djojse6475-50-90 01:10:00 Test Item Value Reference Range Interpretation Comments Mean Corpuscular Volume (test code = 91.6 81-99 787-2) [facility] CenterAutomated erythrocyte mean corpuscular hemoglobin (mass per erythrocyte)2020-07-17 01:10:00 Test Item Value Reference Range Interpretation Comments Mean Corpuscular Hemoglobin (test 31.2 pg 28-32 code = 785-6) [facility] erythrocyte mean corpuscular hemoglobin concentration measurement (mass/volume)2020-07-17 01:10:00 Test Item Value Reference Range Interpretation Comments Mean Corpuscular Hemoglobin Concent 34.1 g/dL 31-35 (test code = 786-4) [facility] CenterRDW GnkCw-Kmj4597-00-08 01:10:00 Test Item Value Reference Range Interpretation Comments Red Cell Distribution Width (test code 11.7 % 11.7-14.4 = 07413-0) [facility] CenterAutcarolinas continuecare [facility] universityed blood platelet count (count/volume)2020-07-17 01:10:00 Test Item Value Reference Range Interpretation Comments Platelet Count (test code = 777-3) 96 10*3/uL 140-360 [facility] CenterAutcarolinas continue[facility] universityed blood segmented neutrophil count as percentage of total ycvrgdqyln4118-96-23 01:10:00 Test Item Value Reference Range Interpretation Comments Neutrophils (%) (Auto) (test code = 51.1 % 38.7-80.0 62964-5) [facility] CenterAutcarolinas continuecare [facility] universityed blood lymphocyte count as percentage ot total rbxuhfwnit0812-44-39 01:10:00 Test Item Value Reference Range Interpretation Comments Lymphocytes (%) (Auto) (test code = 37.9 % 18.0-39.1 736-9) [facility] CenterAutomated blood monocyte count as percentage of total yqoppzblli1280-05-42 01:10:00 Test Item Value Reference Range Interpretation Comments Monocytes (%) (Auto) (test code = 11.0 % 4.4-11.3 5905-5) [facility] CenterAutomated blood eosinophil count as percentage of total rgiisqqtne6701-02-92 01:10:00 Test Item Value Reference Range Interpretation Comments Eosinophils (%) (Auto) (test code = 0.0 % 0.0-6.0 713-8) [facility] CenterAutomated blood basophil count as percentage of total fhxokxqkda7884-71-18 01:10:00 Test Item Value Reference Range Interpretation Comments Basophils (%) (Auto) (test code = 0.0 % 0.0-1.0 706-2) [facility] CenterFluoroscopic procedure less than one hour ofpgqljy8439-91-22 01:10:00 Test Item Value Reference Range Interpretation Comments IM GRANULOCYTES % (test code = IM 0.0 % 0.0-1.0 GRANULOCYTES %) [facility] CenterAutomated blood neutrophil count 2020-07-17 01:10:00 Test Item Value Reference Range Interpretation Comments Neutrophils # (Auto) (test code = 1.4 2.1-6.9 751-8) [facility] CenterBlood lymphocytes count (number/volume) 2020-07-17 01:10:00 Test Item Value Reference Range Interpretation Comments Lymphocytes # (Auto) (test code = 1.1 1.0-3.2 23732-5) [facility] CenterBlood monocytes automated count (number/volume)2020-07-17 01:10:00 Test Item Value Reference Range Interpretation Comments Monocytes # (Auto) (test code = 742-7) 0.3 0.2-0.8 [facility] CenterAutomated blood eosinophil count 2020-07-17 01:10:00 Test Item Value Reference Range Interpretation Comments Eosinophils # (Auto) (test code = 0.0 0.0-0.4 711-2) [facility] CenterAutomated blood basophil count (count/volume)2020-07-17 01:10:00 Test Item Value Reference Range Interpretation Comments Basophils # (Auto) (test code = 704-7) 0.0 0.0-0.1 [facility] CenterFluoroscopic procedure less than one hour [id number] 01:10:00 Test Item Value Reference Range Interpretation Comments Absolute Immature Granulocyte (auto 0 10*3/uL 0-0.1 (test code = Absolute Immature Granulocyte (auto) [facility] CenterUrine color tpqzpuvhwyimn2569-16-36 01:10:00 Test Item Value Reference Range Interpretation Comments Urine Color (test code = 5778-6) YELLOW YELLOW [facility] CenterUrine [id number] 01:10:00 Test Item Value Reference Range Interpretation Comments Urine Clarity (test code = 36403-6) [facility]AR [facility] by Test strip 2020-07-17 01:10:00 Test Item Value Reference Range Interpretation Comments Urine Specific Odon (test code = 1.025 1.010-1.025 5811-5) [facility] CenterU[facility] pH measurement by automated test [id number] 01:10:00 Test Item Value Reference Range Interpretation Comments Urine pH (test code = 69308-9) 7 5-7 [facility] CenterUrine leukocyte esterase detection by automated test [id number] 01:10:00 Test Item Value Reference Range Interpretation Comments Urine Leukocyte Esterase (test code = TRACE NEGATIVE 74261-7) [facility] CenterUrine nitrite detection by automated test kgufz8415-59-13 01:10:00 Test Item Value Reference Range Interpretation Comments Urine Nitrite (test code = 98730-2) NEGATIVE NEGATIVE [facility] CenterUrine protein detection by automated test qmsvb7048-13-97 01:10:00 Test Item Value Reference Range Interpretation Comments Urine Protein (test code = 13580-0) NEGATIVE NEGATIVE [facility] CenterU[facility] glucose iwnpqggtb8488-83-75 01:10:00 Test Item Value Reference Range Interpretation Comments Urine Glucose (UA) (test code = NEGATIVE NEGATIVE 2349-9) [facility] CenterUrine ketones detection by automated test [id number] 01:10:00 Test Item Value Reference Range Interpretation Comments Urine Ketones (test code = 55970-7) NEGATIVE NEGATIVE [facility] CenterUrine urobilinogen measurement by test strip (mass/volume)2020-07-17 01:10:00 Test Item Value Reference Range Interpretation Comments Urine Urobilinogen (test code = 0.2 mg/dL 0.2-1 01061-5) [facility] CenterUrine total bilirubin measurement (mass/volume)2020-07-17 01:10:00 Test Item Value Reference Range Interpretation Comments Urine Bilirubin (test code = 1978-6) NEGATIVE NEGATIVE [facility] CenterUrine erythrocytes xjshiiywq4769-80-04 01:10:00 Test Item Value Reference Range Interpretation Comments Urine Blood (test code = 15223-6) NEGATIVE NEGATIVE [facility] CenterAutomated urine sediment leukocyte count by microscopy (number/high power field)2020-07-17 01:10:00 Test Item Value Reference Range Interpretation Comments Urine WBC (test code = 5821-4) 6-10 /[HPF] 0-5 [facility] CenterErythrocytes detection in urine sediment by light jttyocfkov1928-72-00 01:10:00 Test Item Value Reference Range Interpretation Comments Urine RBC (test code = 91538-3) 0-5 /[HPF] 0-5 [facility] CenterBacteria detection in urine sediment by light wzmbinxfxw9320-41-47 01:10:00 Test Item Value Reference Range Interpretation Comments Urine Bacteria (test code = FEW /[HPF] NONE 52982-3) [facility] CenterEpithelial cells detection in urine sediment by light sunkodjlwm7599-16-20 01:10:00 Test Item Value Reference Range Interpretation Comments Urine Epithelial Cells (test code FEW /[LPF] NONE = 99148-9) [facility] sodium measurement (moles/volume)2020-07-17 01:10:00 Test Item Value Reference Range Interpretation Comments Sodium Level (test code = 2951-2) 136 mmol/L 136-145 [facility]ener[facility] or plasma potassium measurement (moles/volume)2020-07-17 01:10:00 Test Item Value Reference Range Interpretation Comments Potassium Level (test code = 3.9 mmol/L 3.5-5.1 2823-3) [facility] or plasma chloride measurement (moles/volume)2020-07-17 01:10:00 Test Item Value Reference Range Interpretation Comments Chloride Level (test code = 101 mmol/L 98-107 2075-0) [facility]ener[facility] or plasma carbon dioxide, total measurement (moles/volume)2020-07-17 01:10:00 Test Item Value Reference Range Interpretation Comments Carbon Dioxide Level (test code = 26 mmol/L 2027-) [facility] or plasma anion [id number] 01:10:00 Test Item Value Reference Range Interpretation Comments Anion Gap (test code = 56484-3) 12.9 mmol/L - [facility] or plasma urea nitrogen measurement (mass/volume)2020-07-17 01:10:00 Test Item Value Reference Range Interpretation Comments Blood Urea Nitrogen (test code = 11 mg/dL 03-04 3094-0) [facility] creatinine measurement (mass/volume)2020-07-17 01:10:00 Test Item Value Reference Range Interpretation Comments Creatinine (test code = 2160-0) 0.99 mg/dL 0.72-1.25 [facility] or plasma urea nitrogen/creatinine mass tuqfj6011-03-98 01:10:00 Test Item Value Reference Range Interpretation Comments BUN/Creatinine Ratio (test code = 11 02-01 3097-3) [facility] CenterEstimated glomerular filtration rate (GFR) hwwkghxtcfyxb8925-59-07 01:10:00 Test Item Value Reference Range Interpretation Comments Estimat Glomerular Filtration > 60 mL/min >60 Rate (test code = 100317844) Ranges were taken from the National Kidney Disease Education Program and the National Kidney Foundation literature.Reference ranges:60 or greater: Zsahqf99- 59 (for 3 consecutive months): Chronic kidneydisease 15 or less: Kidney failure [facility] CenterGlucose unxeinstdqm5336-10-92 01:10:00 Test Item Value Reference Range Interpretation Comments Glucose Level (test code = WPU0704) 97 mg/dL 74-118 [facility] or plasma calcium measurement (mass/volume)2020-07-17 01:10:00 Test Item Value Reference Range Interpretation Comments Calcium Level (test code = 56921-2) 8.6 mg/dL 8.4-10.2 [facility] CenterFluoroscopic procedure less than one hour qfkwngpw6791-81-93 01:10:00 Test Item Value Reference Range Interpretation Comments Lactic Acid Level (test code = 0.9 mmol/L 0.5-2.0 Lactic Acid Level) [facility] or plasma total bilirubin measurement (mass/volume)2020-07-17 01:10:00 Test Item Value Reference Range Interpretation Comments Total Bilirubin (test code = 0.3 mg/dL 0.2-1.2 1975-2) [facility] CenterFluoroscopic procedure less than one hour ingagmec4409-64-67 01:10:00 Test Item Value Reference Range Interpretation Comments Aspartate Amino Transf (AST/SGOT) 24 [IU]/L 5-34 (test code = Aspartate Amino Transf (AST/SGOT)) [facility] or [facility] alanine aminotransferase measurement (enzymatic activity/volume)2020-07-17 01:10:00 Test Item Value Reference Range Interpretation Comments Alanine Aminotransferase (ALT/SGPT) 12 [IU]/L 0-55 (test code = 1742-6) [facility] or [facility] protein measurement (mass/volume)2020-07-17 01:10:00 Test Item Value Reference Range Interpretation Comments Total Protein (test code = 2885-2) 7.1 g/dL 6.5-8.1 [facility] or [facility] albumin measurement (mass/volume)2020-07-17 01:10:00 Test Item Value Reference Range Interpretation Comments Albumin (test code = 1751-7) 4.2 g/dL 3.5-5.0 [facility] CenterBlood leukocytes automated count (number/volume)2020-07-17 01:10:00 Test Item Value Reference Range Interpretation Comments White Blood Count (test code = 2.82 10*3/uL 4.8-10.8 6690-2) [facility] CenterPlasma globulin measurement (mass/volume) 2020-07-17 01:10:00 Test Item Value Reference Range Interpretation Comments Globulin (test code = 56683-5) 2.9 g/dL 2.3-3.5 [facility] or plasma albumin/globulin mass pjbzr0824-31-15 01:10:00 Test Item Value Reference Range Interpretation Comments Albumin/Globulin Ratio (test code = 1.4 0.8-2.0 1759-0) [facility] or plasma alkaline phosphatase measurement (enzymatic activity/volume)2020-07-17 01:10:00 Test Item Value Reference Range Interpretation Comments Alkaline Phosphatase (test code = 51 [IU]/L 40-150 6768-6) [facility] or plasma lipase measurement (enzymatic activity/volume)2020-07-17 01:10:00 Test Item Value Reference Range Interpretation Comments Lipase (test code = 3040-3) 34 U/L 8-78 [facility]enerum heterophile antibody titer by latex rlepswpapcoua6989-24-99 01:10:00 Test Item Value Reference Range Interpretation Comments Monoscreen (test code = 5215-9) NEGATIVE NEGATIVE [facility] CenterHIV 1 and 2 antibody detection qualitative by rapid prpititlxmn2462-82-74 01:10:00 Test Item Value Reference Range Interpretation Comments HIV (1&2) Antibody (test code = NON-REACTIVE NONREACTIVE 24654-4) [facility] CenterFluoroscopic procedure less than one hour drdlkavu2621-91-67 01:10:00 Test Item Value Reference Range Interpretation Comments HIV P24 Antigen (test code = HIV NON-REACTIVE NONREACTIVE P24 Antigen) [facility] CenterBlood jeoqphw4097-16-02 01:10:00 Test Item Value Reference Range Interpretation Comments Blood Culture (test NO GROWTH AFTER 5 code = 89155277) DAYS, FINAL REPORT [facility] CenterBlaust[facility] leukocytes automated count (number/volume)2020-07-17 01:10:00 Test Item Value Reference Range Interpretation Comments White Blood Count (test code = 2.82 10*3/uL 4.8-10.8 6690-2) [facility] CenterBlood erythrocytes automated count (number/volume)2020-07-17 01:10:00 Test Item Value Reference Range Interpretation Comments Red Blood Count (test code = 4.77 10*6/mL 4.3-5.7 789-8) [facility] CenterBlood hemoglobin measurement (moles/volume)2020-07-17 01:10:00 Test Item Value Reference Range Interpretation Comments Hemoglobin (test code = 58827-5) 14.9 g/dL 14.0-18.0 [facility] CenterAutomated blood hematocrit (volume fraction)2020-07-17 01:10:00 Test Item Value Reference Range Interpretation Comments Hematocrit (test code = 4544-3) 43.7 % 38.2-49.6 [facility] erythrocytes automated count (number/volume)2020-07-17 01:10:00 Test Item Value Reference Range Interpretation Comments Red Blood Count (test code = 4.77 10*6/mL 4.3-5.7 789-8) [facility] CenterAutomated erythrocyte mean corpuscular dbikst8142-70-03 01:10:00 Test Item Value Reference Range Interpretation Comments Mean Corpuscular Volume (test code = 91.6 81-99 787-2) [facility] CenterAutomated erythrocyte mean corpuscular hemoglobin (mass per erythrocyte)2020-07-17 01:10:00 Test Item Value Reference Range Interpretation Comments Mean Corpuscular Hemoglobin (test 31.2 pg 28-32 code = 785-6) [facility] CenterAutomated erythrocyte mean corpuscular hemoglobin concentration measurement (mass/volume)2020-07-17 01:10:00 Test Item Value Reference Range Interpretation Comments Mean Corpuscular Hemoglobin Concent 34.1 g/dL 31-35 (test code = 786-4) [facility] CenterRDW BjmZx-Etz0365-37-08 01:10:00 Test Item Value Reference Range Interpretation Comments Red Cell Distribution Width (test code 11.7 % 11.7-14.4 = 99948-1) [facility] CenterAutomated blood platelet count (count/volume)2020-07-17 01:10:00 Test Item Value Reference Range Interpretation Comments Platelet Count (test code = 777-3) 96 10*3/uL 140-360 [facility] CenterAutomated blood segmented neutrophil count as percentage of total yzfpehnwwf6139-52-39 01:10:00 Test Item Value Reference Range Interpretation Comments Neutrophils (%) (Auto) (test code = 51.1 % 38.7-80.0 22056-7) [facility] CenterAutomated blood lymphocyte count as percentage ot total rpvowwvjdd1434-43-39 01:10:00 Test Item Value Reference Range Interpretation Comments Lymphocytes (%) (Auto) (test code = 37.9 % 18.0-39.1 736-9) [facility] CenterAutomated blood monocyte count as percentage of total gwaxqnnykw8831-60-94 01:10:00 Test Item Value Reference Range Interpretation Comments Monocytes (%) (Auto) (test code = 11.0 % 4.4-11.3 5905-5) [facility] CenterAutomated blood eosinophil count as percentage of total pjyfhuumrf1935-59-15 01:10:00 Test Item Value Reference Range Interpretation Comments Eosinophils (%) (Auto) (test code = 0.0 % 0.0-6.0 713-8) [facility] CenterAutomated blood basophil count as percentage of total htjahnizsm0027-61-03 01:10:00 Test Item Value Reference Range Interpretation Comments Basophils (%) (Auto) (test code = 0.0 % 0.0-1.0 706-2) [facility] CenterFluoroscopic procedure less than one hour ipbdokwu4599-43-96 01:10:00 Test Item Value Reference Range Interpretation Comments IM GRANULOCYTES % (test code = IM 0.0 % 0.0-1.0 GRANULOCYTES %) [facility] CenterAutomated blood neutrophil count 2020-07-17 01:10:00 Test Item Value Reference Range Interpretation Comments Neutrophils # (Auto) (test code = 1.4 2.1-6.9 751-8) [facility] CenterBlood lymphocytes count (number/volume) 2020-07-17 01:10:00 Test Item Value Reference Range Interpretation Comments Lymphocytes # (Auto) (test code = 1.1 1.0-3.2 04737-0) [facility] CenterBlood monocytes automated count (number/volume)2020-07-17 01:10:00 Test Item Value Reference Range Interpretation Comments Monocytes # (Auto) (test code = 742-7) 0.3 0.2-0.8 [facility] CenterAutomated blood eosinophil count 2020-07-17 01:10:00 Test Item Value Reference Range Interpretation Comments Eosinophils # (Auto) (test code = 0.0 0.0-0.4 711-2) [facility] CenterAutomated blood basophil count (count/volume)2020-07-17 01:10:00 Test Item Value Reference Range Interpretation Comments Basophils # (Auto) (test code = 704-7) 0.0 0.0-0.1 [facility] CenterFluoroscopic procedure less than one hour dsmrewah6920-29-17 01:10:00 Test Item Value Reference Range Interpretation Comments Absolute Immature Granulocyte (auto 0 10*3/uL 0-0.1 (test code = Absolute Immature Granulocyte (auto) [facility] CenterUrine color ohogkmyytogef7829-03-75 01:10:00 Test Item Value Reference Range Interpretation Comments Urine Color (test code = 5778-6) YELLOW YELLOW [facility] CenterUrine jeayvqh2655-55-16 01:10:00 Test Item Value Reference Range Interpretation Comments Urine Clarity (test code = 54973-1) CLEAR CLEAR [facility] Urine by Test strip 2020-07-17 01:10:00 Test Item Value Reference Range Interpretation Comments Urine Specific Odon (test code = 1.025 1.010-1.025 5811-5) [facility] CenterBlood hemoglobin measurement (moles/volume)2020-07-17 01:10:00 Test Item Value Reference Range Interpretation Comments Hemoglobin (test code = 05609-7) 14.9 g/dL 14.0-18.0 [facility] CenterUrine pH measurement by automated test iluuo4512-14-76 01:10:00 Test Item Value Reference Range Interpretation Comments Urine pH (test code = 60579-7) 7 5-7 [facility] CenterUrine leukocyte esterase detection by automated test dembg1336-83-47 01:10:00 Test Item Value Reference Range Interpretation Comments Urine Leukocyte Esterase (test code = TRACE NEGATIVE 66228-1) [facility] CenterUrine nitrite detection by automated test mlmam8540-63-31 01:10:00 Test Item Value Reference Range Interpretation Comments Urine Nitrite (test code = 48344-9) NEGATIVE NEGATIVE [facility] CenterUrine protein detection by automated test epoqc8174-54-44 01:10:00 Test Item Value Reference Range Interpretation Comments Urine Protein (test code = 06758-5) NEGATIVE NEGATIVE [facility] CenterUrine glucose impzbdrtp0556-12-64 01:10:00 Test Item Value Reference Range Interpretation Comments Urine Glucose (UA) (test code = NEGATIVE NEGATIVE 2349-9) [facility] CenterUrine ketones detection by automated test ttrlj2743-92-56 01:10:00 Test Item Value Reference Range Interpretation Comments Urine Ketones (test code = 29774-3) NEGATIVE NEGATIVE [facility] CenterUrine urobilinogen measurement by test strip (mass/volume)2020-07-17 01:10:00 Test Item Value Reference Range Interpretation Comments Urine Urobilinogen (test code = 0.2 mg/dL 0.2-1 75187-8) [facility] CenterUrine total bilirubin measurement (mass/volume)2020-07-17 01:10:00 Test Item Value Reference Range Interpretation Comments Urine Bilirubin (test code = 1978-6) NEGATIVE NEGATIVE [facility] CenterUrine erythrocytes yuvfukjpy5009-24-25 01:10:00 Test Item Value Reference Range Interpretation Comments Urine Blood (test code = 49073-1) NEGATIVE NEGATIVE [facility] CenterAutomated urine sediment leukocyte count by microscopy (number/high power field)2020-07-17 01:10:00 Test Item Value Reference Range Interpretation Comments Urine WBC (test code = 5821-4) 6-10 /[HPF] 0-5 [facility] CenterErythrocytes detection in urine sediment by light xfvrlbsoys3307-62-69 01:10:00 Test Item Value Reference Range Interpretation Comments Urine RBC (test code = 68960-0) 0-5 /[HPF] 0-5 [facility] CenterBacteria detection in urine sediment by light ttmpfrfyhz4266-48-08 01:10:00 Test Item Value Reference Range Interpretation Comments Urine Bacteria (test code = FEW /[HPF] NONE 94009-2) [facility] CenterEpithelial cells detection in urine sediment by light aseymioyho4408-34-95 01:10:00 Test Item Value Reference Range Interpretation Comments Urine Epithelial Cells (test code FEW /[LPF] NONE = 61491-6) [facility] or plasma sodium measurement (moles/volume)2020-07-17 01:10:00 Test Item Value Reference Range Interpretation Comments Sodium Level (test code = 2951-2) 136 mmol/L 136-145 [facility] CenterAutomated blood hematocrit (volume fraction)2020-07-17 01:10:00 Test Item Value Reference Range Interpretation Comments Hematocrit (test code = 4544-3) 43.7 % 38.2-49.6 [facility] or plasma potassium measurement (moles/volume)2020-07-17 01:10:00 Test Item Value Reference Range Interpretation Comments Potassium Level (test code = 3.9 mmol/L 3.5-5.1 2823-3) [facility] or plasma chloride measurement (moles/volume)2020-07-17 01:10:00 Test Item Value Reference Range Interpretation Comments Chloride Level (test code = 101 mmol/L 98-107 5-0) [facility] or plasma carbon dioxide, total measurement (moles/volume)2020-07-17 01:10:00 Test Item Value Reference Range Interpretation Comments Carbon Dioxide Level (test code = 26 mmol/L -29 2028-04) [facility] or plasma anion qsw7576-02-78 01:10:00 Test Item Value Reference Range Interpretation Comments Anion Gap (test code = 16718-6) 12.9 mmol/L 8-16 [facility] or plasma urea nitrogen measurement (mass/volume)2020-07-17 01:10:00 Test Item Value Reference Range Interpretation Comments Blood Urea Nitrogen (test code = 11 mg/dL 03-04 3094-0) [facility] or [facility] creatinine measurement (mass/volume)2020-07-17 01:10:00 Test Item Value Reference Range Interpretation Comments Creatinine (test code = 2160-0) 0.99 mg/dL 0.72-1.25 [facility] or plasma urea nitrogen/creatinine mass kqvuq1690-59-95 01:10:00 Test Item Value Reference Range Interpretation Comments BUN/Creatinine Ratio (test code = 11 02-01 3097-3) [facility] CenterEstimated glomerular filtration rate (GFR) fszocgesqtpcs2706-17-19 01:10:00 Test Item Value Reference Range Interpretation Comments Estimat Glomerular Filtration > 60 mL/min >60 Rate (test code = 571685474) Ranges were taken from the National Kidney Disease Education Program and the National Kidney Foundation literature.Reference ranges:60 or greater: Tdtvko55- 59 (for 3 consecutive months): Chronic kidneydisease 15 or less: Kidney failure [facility] CenterGlucose jngfwidkvjx6475-58-19 01:10:00 Test Item Value Reference Range Interpretation Comments Glucose Level (test code = ELZ2120) 97 mg/dL 74-118 [facility] or plasma calcium measurement (mass/volume)2020-07-17 01:10:00 Test Item Value Reference Range Interpretation Comments Calcium Level (test code = 15495-0) 8.6 mg/dL 8.4-10.2 [facility] CenterAutomated erythrocyte mean corpuscular dofycs6740-64-33 01:10:00 Test Item Value Reference Range Interpretation Comments Mean Corpuscular Volume (test code = 91.6 81-99 787-2) [facility] CenterFluoroscopic procedure less than one hour oxhkrdhb8824-59-14 01:10:00 Test Item Value Reference Range Interpretation Comments Lactic Acid Level (test code = 0.9 mmol/L 0.5-2.0 Lactic Acid Level) [facility] total bilirubin measurement (mass/volume)2020-07-17 01:10:00 Test Item Value Reference Range Interpretation Comments Total Bilirubin (test code = 0.3 mg/dL 0.2-1.2 1975-2) [facility] CenterFluoroscopic procedure less than one hour adqpndoq4873-66-04 01:10:00 Test Item Value Reference Range Interpretation Comments Aspartate Amino Transf (AST/SGOT) 24 [IU]/L 5-34 (test code = Aspartate Amino Transf (AST/SGOT)) [facility] or plasma alanine aminotransferase measurement (enzymatic activity/volume)2020-07-17 01:10:00 Test Item Value Reference Range Interpretation Comments Alanine Aminotransferase (ALT/SGPT) 12 [IU]/L 0-55 (test code = 1742-6) [facility] or [facility] protein measurement (mass/volume)2020-07-17 01:10:00 Test Item Value Reference Range Interpretation Comments Total Protein (test code = 2885-2) 7.1 g/dL 6.5-8.1 [facility] or [facility] albumin measurement (mass/volume)2020-07-17 01:10:00 Test Item Value Reference Range Interpretation Comments Albumin (test code = 1751-7) 4.2 g/dL 3.5-5.0 [facility] CenterPlasma globulin measurement (mass/volume) 2020-07-17 01:10:00 Test Item Value Reference Range Interpretation Comments Globulin (test code = 60768-7) 2.9 g/dL 2.3-3.5 [facility] or plasma albumin/globulin mass qghxd0065-10-89 01:10:00 Test Item Value Reference Range Interpretation Comments Albumin/Globulin Ratio (test code = 1.4 0.8-2.0 1759-0) [facility] or plasma alkaline phosphatase measurement (enzymatic activity/volume)2020-07-17 01:10:00 Test Item Value Reference Range Interpretation Comments Alkaline Phosphatase (test code = 51 [IU]/L 40-150 6768-6) [facility] or plasma lipase measurement (enzymatic activity/volume)2020-07-17 01:10:00 Test Item Value Reference Range Interpretation Comments Lipase (test code = 3040-3) 34 U/L 8-78 [facility] heterophile antibody titer by latex jalghyarbgifo0254-46-81 01:10:00 Test Item Value Reference Range Interpretation Comments Monoscreen (test code = 5215-9) NEGATIVE NEGATIVE [facility] CenterHIV 1 and 2 antibody detection qualitative by rapid hezsxfmliic3568-19-01 01:10:00 Test Item Value Reference Range Interpretation Comments HIV (1&2) Antibody (test code = NON-REACTIVE NONREACTIVE 22896-5) [facility] CenterAutomated erythrocyte mean corpuscular hemoglobin (mass per erythrocyte)2020-07-17 01:10:00 Test Item Value Reference Range Interpretation Comments Mean Corpuscular Hemoglobin (test 31.2 pg 28-32 code = 785-6) [facility] CenterFluoroscopic procedure less than one hour nrcuoszp4695-19-82 01:10:00 Test Item Value Reference Range Interpretation Comments HIV P24 Antigen (test code = HIV NON-REACTIVE NONREACTIVE P24 Antigen) [facility] [id number] 01:10:00 Test Item Value Reference Range Interpretation Comments Blood Culture (test NO GROWTH AFTER 5 code = 01583622) DAYS, FINAL REPORT [facility] leukocytes automated count (number/volume)2020-07-17 01:10:00 Test Item Value Reference Range Interpretation Comments White Blood Count (test code = 2.82 10*3/uL 4.8-10.8 6690-2) [facility] erythrocytes automated count (number/volume)2020-07-17 01:10:00 Test Item Value Reference Range Interpretation Comments Red Blood Count (test code = 4.77 10*6/mL 4.3-5.7 789-8) [facility] ([facility]/volume)2020-07-17 01:10:00 Test Item Value Reference Range Interpretation Comments Hemoglobin (test code = 52602-9) 14.9 g/dL 14.0-18.0 [facility] CenterAutomated blood hematocrit (volume fraction)2020-07-17 01:10:00 Test Item Value Reference Range Interpretation Comments Hematocrit (test code = 4544-3) 43.7 % 38.2-49.6 [facility] CenterAutomated erythrocyte mean corpuscular [id number] 01:10:00 Test Item Value Reference Range Interpretation Comments Mean Corpuscular Volume (test code = 91.6 81-99 787-2) [facility] CenterAutomated erythrocyte mean corpuscular hemoglobin (mass per erythrocyte)2020-07-17 01:10:00 Test Item Value Reference Range Interpretation Comments Mean Corpuscular Hemoglobin (test 31.2 pg 28-32 code = 785-6) [facility] CenterAutomated erythrocyte mean corpuscular hemoglobin concentration measurement (mass/volume)2020-07-17 01:10:00 Test Item Value Reference Range Interpretation Comments Mean Corpuscular Hemoglobin Concent 34.1 g/dL 31-35 (test code = 786-4) [facility] CenterAutom[facility] erythrocyte mean corpuscular hemoglobin concentration measurement (mass/volume)2020-07-17 01:10:00 Test Item Value Reference Range Interpretation Comments Mean Corpuscular Hemoglobin Concent 34.1 g/dL 31-35 (test code = 786-4) [facility] CenterRDW CxbLi-Ibn2443-21-08 01:10:00 Test Item Value Reference Range Interpretation Comments Red Cell Distribution Width (test code 11.7 % 11.7-14.4 = 62912-0) [facility] CenterAutomated blood platelet count (count/volume)2020-07-17 01:10:00 Test Item Value Reference Range Interpretation Comments Platelet Count (test code = 777-3) 96 10*3/uL 140-360 [facility] CenterAutomated blood segmented neutrophil count as percentage of total wuqacdrxba8011-49-49 01:10:00 Test Item Value Reference Range Interpretation Comments Neutrophils (%) (Auto) (test code = 51.1 % 38.7-80.0 54353-3) [facility] CenterAutomated blood lymphocyte count as percentage ot total ncavdovgdo8284-31-26 01:10:00 Test Item Value Reference Range Interpretation Comments Lymphocytes (%) (Auto) (test code = 37.9 % 18.0-39.1 736-9) [facility] CenterAutomated blood monocyte count as percentage of total eprcvsgxhk8614-05-81 01:10:00 Test Item Value Reference Range Interpretation Comments Monocytes (%) (Auto) (test code = 11.0 % 4.4-11.3 5905-5) [facility] CenterAutomated blood eosinophil count as percentage of total dmlgmddbzh3173-94-95 01:10:00 Test Item Value Reference Range Interpretation Comments Eosinophils (%) (Auto) (test code = 0.0 % 0.0-6.0 713-8) [facility] CenterAutomated blood basophil count as percentage of total vzrhqzdpvm8673-59-28 01:10:00 Test Item Value Reference Range Interpretation Comments Basophils (%) (Auto) (test code = 0.0 % 0.0-1.0 706-2) [facility] CenterFluoroscopic procedure less than one hour kojqbayx5562-94-41 01:10:00 Test Item Value Reference Range Interpretation Comments IM GRANULOCYTES % (test code = IM 0.0 % 0.0-1.0 GRANULOCYTES %) [facility] CenterAutomated blood neutrophil count 2020-07-17 01:10:00 Test Item Value Reference Range Interpretation Comments Neutrophils # (Auto) (test code = 1.4 2.1-6.9 751-8) [facility] CenterBlood lymphocytes count (number/volume) 2020-07-17 01:10:00 Test Item Value Reference Range Interpretation Comments Lymphocytes # (Auto) (test code = 1.1 1.0-3.2 83572-6) [facility] CenterB[facility] monocytes automated count (number/volume)2020-07-17 01:10:00 Test Item Value Reference Range Interpretation Comments Monocytes # (Auto) (test code = 742-7) 0.3 0.2-0.8 [facility] CenterAutomated blood eosinophil count 2020-07-17 01:10:00 Test Item Value Reference Range Interpretation Comments Eosinophils # (Auto) (test code = 0.0 0.0-0.4 711-2) [facility] CenterAutomated blood basophil count (count/volume)2020-07-17 01:10:00 Test Item Value Reference Range Interpretation Comments Basophils # (Auto) (test code = 704-7) 0.0 0.0-0.1 [facility] CenterFluoroscopic procedure less than one hour zpznswls3875-70-86 01:10:00 Test Item Value Reference Range Interpretation Comments Absolute Immature Granulocyte (auto 0 10*3/uL 0-0.1 (test code = Absolute Immature Granulocyte (auto) [facility] CenterUrine color alihhpclgnipr6414-12-40 01:10:00 Test Item Value Reference Range Interpretation Comments Urine Color (test code = 5778-6) YELLOW YELLOW [facility] CenterUrine [id number] 01:10:00 Test Item Value Reference Range Interpretation Comments Urine Clarity (test code = 11606-0) CLEAR CLEAR [facility] Urine by Test strip 2020-07-17 01:10:00 Test Item Value Reference Range Interpretation Comments Urine Specific Odon (test code = 1.025 1.010-1.025 5811-5) [facility] CenterUrine pH measurement by automated test fqybb0126-26-08 01:10:00 Test Item Value Reference Range Interpretation Comments Urine pH (test code = 28041-3) 7 5-7 [facility] CenterUrine leukocyte esterase detection by automated test nlfxq7469-24-32 01:10:00 Test Item Value Reference Range Interpretation Comments Urine Leukocyte Esterase (test code = TRACE NEGATIVE 56314-3) [facility] CenterUrine nitrite detection by automated test lgrfu1927-51-55 01:10:00 Test Item Value Reference Range Interpretation Comments Urine Nitrite (test code = 68993-4) NEGATIVE NEGATIVE [facility] CenterUrine protein detection by automated test ysvap8595-74-54 01:10:00 Test Item Value Reference Range Interpretation Comments Urine Protein (test code = 96644-2) NEGATIVE NEGATIVE [facility] CenterUrine glucose rwrkbrwrn3777-98-16 01:10:00 Test Item Value Reference Range Interpretation Comments Urine Glucose (UA) (test code = NEGATIVE NEGATIVE 2349-9) [facility] CenterUrine ketones detection by automated test fpuni5526-36-66 01:10:00 Test Item Value Reference Range Interpretation Comments Urine Ketones (test code = 16059-1) NEGATIVE NEGATIVE [facility] CenterUrine urobilinogen measurement by test strip (mass/volume)2020-07-17 01:10:00 Test Item Value Reference Range Interpretation Comments Urine Urobilinogen (test code = 0.2 mg/dL 0.2-1 49433-3) [facility] CenterUrine total bilirubin measurement (mass/volume)2020-07-17 01:10:00 Test Item Value Reference Range Interpretation Comments Urine Bilirubin (test code = 1978-6) NEGATIVE NEGATIVE [facility] CenterUrine erythrocytes kzihfuuvx8482-19-92 01:10:00 Test Item Value Reference Range Interpretation Comments Urine Blood (test code = 30580-4) NEGATIVE NEGATIVE [facility] CenterAutomated urine sediment leukocyte count by microscopy (number/high power field)2020-07-17 01:10:00 Test Item Value Reference Range Interpretation Comments Urine WBC (test code = 5821-4) 6-10 /[HPF] 0-5 [facility] CenterErythrocytes detection in urine sediment by light nwndahufwj3904-60-34 01:10:00 Test Item Value Reference Range Interpretation Comments Urine RBC (test code = 05497-3) 0-5 /[HPF] 0-5 [facility] CenterBacteria detection in urine sediment by light thbkrcrydq3826-81-73 01:10:00 Test Item Value Reference Range Interpretation Comments Urine Bacteria (test code = FEW /[HPF] NONE 79117-3) [facility] CenterEpithelial cells detection in urine sediment by light iwhaacjeww5120-19-01 01:10:00 Test Item Value Reference Range Interpretation Comments Urine Epithelial Cells (test code FEW /[LPF] NONE = 98560-3) [facility] CenterRDW PbvIb-Hnk1541-85-08 01:10:00 Test Item Value Reference Range Interpretation Comments Red Cell Distribution Width (test code 11.7 % 11.7-14.4 = 30557-3) [facility] or plasma sodium measurement (moles/volume)2020-07-17 01:10:00 Test Item Value Reference Range Interpretation Comments Sodium Level (test code = 2951-2) 136 mmol/L 136-145 [facility]Allenerum or plasma potassium measurement (moles/volume)2020-07-17 01:10:00 Test Item Value Reference Range Interpretation Comments Potassium Level (test code = 3.9 mmol/L 3.5-5.1 2823-3) [facility]um or plasma chloride measurement (moles/volume)2020-07-17 01:10:00 Test Item Value Reference Range Interpretation Comments Chloride Level (test code = 101 mmol/L 98-107 5-0) [facility]Allenerum or plasma carbon dioxide, total measurement (moles/volume)2020-07-17 01:10:00 Test Item Value Reference Range Interpretation Comments Carbon Dioxide Level (test code = 26 mmol/L 22-29 2028-04) [facility]enerum or plasma anion [id number] 01:10:00 Test Item Value Reference Range Interpretation Comments Anion Gap (test code = 22358-8) 12.9 mmol/L 8-16 [facility]enerum or plasma urea nitrogen measurement (mass/volume)2020-07-17 01:10:00 Test Item Value Reference Range Interpretation Comments Blood Urea Nitrogen (test code = 11 mg/dL 03-04 3094-0) [facility] or plasma creatinine measurement (mass/volume)2020-07-17 01:10:00 Test Item Value Reference Range Interpretation Comments Creatinine (test code = 2160-0) 0.99 mg/dL 0.72-1.25 [facility] or plasma urea nitrogen/creatinine mass rdugz8625-16-44 01:10:00 Test Item Value Reference Range Interpretation Comments BUN/Creatinine Ratio (test code = 11 625 3097-3) [facility] CenterEstimated glomerular filtration rate (GFR) pkxsimitidczz2681-96-43 01:10:00 Test Item Value Reference Range Interpretation Comments Estimat Glomerular Filtration > 60 mL/min >60 Rate (test code = 560071264) Ranges were taken from the National Kidney Disease Education Program and the National Kidney Foundation literature.Reference ranges:60 or greater: Wtnrja75- 59 (for 3 consecutive months): Chronic kidneydisease 15 or less: Kidney failure [facility] CenterGlucose nszdcpceyuw8317-31-85 01:10:00 Test Item Value Reference Range Interpretation Comments Glucose Level (test code = RHC6279) 97 mg/dL 74-118 [facility] or plasma calcium measurement (mass/volume)2020-07-17 01:10:00 Test Item Value Reference Range Interpretation Comments Calcium Level (test code = 08965-0) 8.6 mg/dL 8.4-10.2 [facility] CenterFluoroscopic procedure less than one hour dwjsegch4543-43-24 01:10:00 Test Item Value Reference Range Interpretation Comments Lactic Acid Level (test code = 0.9 mmol/L 0.5-2.0 Lactic Acid Level) [facility] or plasma total bilirubin measurement (mass/volume)2020-07-17 01:10:00 Test Item Value Reference Range Interpretation Comments Total Bilirubin (test code = 0.3 mg/dL 0.2-1.2 1975-2) [facility] CenterFluoroscopic procedure less than one hour avsnymes4421-10-69 01:10:00 Test Item Value Reference Range Interpretation Comments Aspartate Amino Transf (AST/SGOT) 24 [IU]/L 5-34 (test code = Aspartate Amino Transf (AST/SGOT)) [facility] or plasma alanine aminotransferase measurement (enzymatic activity/volume)2020-07-17 01:10:00 Test Item Value Reference Range Interpretation Comments Alanine Aminotransferase (ALT/SGPT) 12 [IU]/L 0-55 (test code = 1742-6) [facility] or plasma protein measurement (mass/volume)2020-07-17 01:10:00 Test Item Value Reference Range Interpretation Comments Total Protein (test code = 2885-2) 7.1 g/dL 6.5-8.1 [facility] or plasma albumin measurement (mass/volume)2020-07-17 01:10:00 Test Item Value Reference Range Interpretation Comments Albumin (test code = 1751-7) 4.2 g/dL 3.5-5.0 [facility] CenterPlasma globulin measurement (mass/volume) 2020-07-17 01:10:00 Test Item Value Reference Range Interpretation Comments Globulin (test code = 93676-9) 2.9 g/dL 2.3-3.5 [facility] or plasma albumin/globulin mass agxzr8299-99-55 01:10:00 Test Item Value Reference Range Interpretation Comments Albumin/Globulin Ratio (test code = 1.4 0.8-2.0 1759-0) [facility] or plasma alkaline phosphatase measurement (enzymatic activity/volume)2020-07-17 01:10:00 Test Item Value Reference Range Interpretation Comments Alkaline Phosphatase (test code = 51 [IU]/L 40-150 6768-6) [facility] or plasma lipase measurement (enzymatic activity/volume)2020-07-17 01:10:00 Test Item Value Reference Range Interpretation Comments Lipase (test code = 3040-3) 34 U/L 8-78 [facility]enerum heterophile antibody titer by latex fxbwdjbhnfygw5720-93-01 01:10:00 Test Item Value Reference Range Interpretation Comments Monoscreen (test code = 5215-9) NEGATIVE NEGATIVE [facility] CenterHIV 1 and 2 antibody detection qualitative by rapid uohbckfltuw0166-25-92 01:10:00 Test Item Value Reference Range Interpretation Comments HIV (1&2) Antibody (test code = NON-REACTIVE NONREACTIVE 48696-4) [facility] CenterFluoroscopic procedure less than one hour zkcbkuql1594-49-95 01:10:00 Test Item Value Reference Range Interpretation Comments HIV P24 Antigen (test code = HIV NON-REACTIVE NONREACTIVE P24 Antigen) [facility] CenterBlood ulabdrm4590-93-18 01:10:00 Test Item Value Reference Range Interpretation Comments Blood Culture (test NO GROWTH AFTER 5 code = 81102133) DAYS, FINAL REPORT [facility] CenterAutomated blood platelet count (count/volume)2020-07-17 01:10:00 Test Item Value Reference Range Interpretation Comments Platelet Count (test code = 777-3) 96 10*3/uL 140-360 [facility] CenterAutomated blood segmented neutrophil count as percentage of total kiyuxoflny9858-07-46 01:10:00 Test Item Value Reference Range Interpretation Comments Neutrophils (%) (Auto) (test code = 51.1 % 38.7-80.0 02461-7) [facility] CenterAutomated blood lymphocyte count as percentage ot total rffwexbwiu2757-53-78 01:10:00 Test Item Value Reference Range Interpretation Comments Lymphocytes (%) (Auto) (test code = 37.9 % 18.0-39.1 736-9) [facility] CenterAutomated blood monocyte count as percentage of total qjsoosmjpv2221-56-45 01:10:00 Test Item Value Reference Range Interpretation Comments Monocytes (%) (Auto) (test code = 11.0 % 4.4-11.3 5905-5) [facility] CenterAutomated blood eosinophil count as percentage of total rggdiksyyu5447-55-14 01:10:00 Test Item Value Reference Range Interpretation Comments Eosinophils (%) (Auto) (test code = 0.0 % 0.0-6.0 713-8) [facility] CenterAutomated blood basophil count as percentage of total fmwfmxevrk0090-30-63 01:10:00 Test Item Value Reference Range Interpretation Comments Basophils (%) (Auto) (test code = 0.0 % 0.0-1.0 706-2) [facility] CenterFluoroscopic procedure less than one hour amgvsydw2437-99-30 01:10:00 Test Item Value Reference Range Interpretation Comments IM GRANULOCYTES % (test code = IM 0.0 % 0.0-1.0 GRANULOCYTES %) [facility] CenterAutomated blood neutrophil count 2020-07-17 01:10:00 Test Item Value Reference Range Interpretation Comments Neutrophils # (Auto) (test code = 1.4 2.1-6.9 751-8) [facility]
[2021-03-19 12:44] LABS: SARS-COV-2 RT PCR NEGATIVE (NEGATIVE)
--- NOTE | 2021-03-19 12:48 | EDPHYS ---
Physician Documentation [facility] Name: Maximilian Mattson Age: 20 yrs Sex: Male : 2000 Arrival Date: 03/19/2021 Time: 11:18 Bed Waiting Private MD: ED Physician Zhao Curry HPI: 03/19 12:45 This 20 yrs old Black Male presents to ER via Ambulatory with complaints of Sore kb Throat, Runny Nose, Fever. 12:45 The patient presents with sore throat. kb 12:45 The patient describes throat pain as constant. Onset: The symptoms/episode kb began/occurred 2 day(s) ago. Severity of symptoms: At their worst the symptoms were mild, in the emergency department the symptoms are unchanged. Modifying factors: The symptoms are alleviated by nothing, the symptoms are aggravated by swallowing. Associated signs and symptoms: Pertinent positives: rhinorrhea, Pertinent negatives fever, flu-like symptoms. The patient has not experienced similar symptoms in the past. The patient has not recently seen a physician. Pt reports sore throat and runny nose for 2 days. States he went to work today and was sent home because of his symptoms. Historical: - Allergies: 13:23 Amoxicillin; kg - Home Meds: 13:23 None [Active]; kg - PMHx: 13:23 None; kg - PSHx: 13:23 None; kg - Immunization history:: Client reports receiving the 1st dose of the Covid vaccine. - Social history:: Smoking status: unknown. ROS: 12:45 Constitutional: Negative for fever, chills, and weight loss. kb 12:45 ENT: Positive for rhinorrhea, sore throat. 12:45 All other systems are negative. Exam: 12:45 Constitutional: This is a well developed, well nourished patient who is awake, alert, kb and in no acute distress. Head/Face: Normocephalic, atraumatic. ENT: Moist Mucous membranes Cardiovascular: Regular rate and rhythm with a normal S1 and S2. No gallops, murmurs, or rubs. No pulse deficits. Respiratory: Respirations even and unlabored. No increased work of breathing, no retractions or nasal flaring. Abdomen/GI: Soft, non-tender. No distention Skin: Warm, dry with normal turgor. Normal color. MS/ Extremity: Pulses equal, no cyanosis. Neurovascular intact. Full, normal range of motion. Neuro: Awake and alert, GCS 15, oriented to person, place, time, and situation. Moves all extremities. Normal gait. Psych: Awake, alert, with orientation to person, place and time. Behavior, mood, and affect are within normal limits. Vital Signs: 11:30 BP 132 / 70; Pulse 67; Resp 20; Temp 98.8; Pulse Ox 100% on R/A; da3 MDM: 11:31 Patient medically screened. kb 12:46 Data reviewed: vital signs, nurses notes. Data interpreted: Pulse oximetry: on room air kb is 100 %. Interpretation: normal. Counseling: I had a detailed discussion with the patient and/or guardian regarding: the historical points, exam findings, and any diagnostic results supporting the discharge/admit diagnosis, lab results, the need for outpatient follow up, a family practitioner, to return to the emergency department if symptoms worsen or persist or if there are any questions or concerns that arise at home. 03/19 11:28 Order name: Strep; Complete Time: 12:44 kb 03/19 12:17 Order name: Throat Culture EDMS 03/19 12:44 Order name: COVID-19/FLU A+B; Complete Time: 12:44 EDMS Administered Medications: No medications were administered Disposition: 15:37 Co-signature as Attending Physician, Zhao Curry MD I agree with the assessment and rn plan of care. Attestation: The patient's history, exam findings, diagnostics, and a summary of any interventions or procedures was reviewed in detail with Bree HUTCHINSON. Disposition Summary: 03/19/21 12:47 Discharge Ordered Location: Home kb Condition: Stable kb Diagnosis - Acute pharyngitis, unspecified kb Followup: kb - With: Private Physician - When: 2 - 3 days - Reason: Recheck today's complaints, Continuance of care, Re-evaluation by your physician Followup: kb - With: Emergency Department - When: As needed - Reason: Worsening of condition Discharge Instructions: - Discharge Summary Sheet kb - Pharyngitis, Autd-qc-Zpfp kb Forms: - Medication Reconciliation Form kb - Thank You Letter kb - Antibiotic Education kb - Prescription Opioid Use kb Signatures: Dispatcher [employer] EDAZ Shamar, Bree, PROTOTYPE MODEL MAKER-C PROTOTYPE MODEL MAKER-CkZhao Ku MD MD rn Graham, Kristen RN RN kg Yuri Lovelace, RN RN da3 Corrections: (The following items were deleted from the chart) 11: Influenza Screen (A \T\ B)+BA.LAB.BRZ ordered. EDMS EDMS 11: CORONAVIRUS+MR.LAB.BRZ ordered. EDMS EDMS
--- NOTE | 2021-03-19 12:48 | ER ---
Nurse's Notes [facility] Name: Maximilian Mattson Age: 20 yrs Sex: Male : 2000 Arrival Date: 03/19/2021 Time: 11:18 Bed Waiting Private MD: Diagnosis: Acute pharyngitis, unspecified Presentation: 03/19 11:29 Chief complaint: Patient states: Runny nose soar throat X 2 days. Coronavirus screen: da3 Client denies travel out of the [place] in the last 14 days. Client presents with at least one sign or symptom that may indicate coronavirus-19. Standard/surgical mask placed on the client. Provider contacted for isolation considerations. 11:29 Method Of Arrival: Ambulatory da3 11:33 Acuity: BRO 5 da3 13:00 Acuity: BRO 4 iw Triage Assessment: 11:33 General: Appears in no apparent distress. Behavior is calm. da3 Historical: - Allergies: 13:23 Amoxicillin; kg - Home Meds: 13:23 None [Active]; kg - PMHx: 13:23 None; kg - PSHx: 13:23 None; kg - Immunization history:: Client reports receiving the 1st dose of the Covid vaccine. - Social history:: Smoking status: unknown. Screenin:22 Abuse screen: Denies threats or abuse. Denies injuries from another. Nutritional kg screening: No deficits noted. Tuberculosis screening: No symptoms or risk factors identified. Fall Risk None identified. Assessment: 13:23 Pain: Denies pain. Respiratory: Airway Respiratory effort is even, unlabored, relaxed, kg Breath sounds are clear. EENT: Nares with drainage noted Throat is reddened. Vital Signs: 11:30 BP 132 / 70; Pulse 67; Resp 20; Temp 98.8; Pulse Ox 100% on R/A; da3 ED Course: 11:18 Patient arrived in ED. ds1 11:21 [facility] Ibanez F[facility]-C [facility] kb 11:21 Zhao Curry MD is Attending Physician. kb 11:33 Triage completed. da3 13:22 Patient has correct armband on for positive identification. kg 13:22 No provider procedures requiring assistance completed. Patient did not have IV access kg during this emergency room visit. Administered Medications: No medications were administered Outcome: 12:47 Discharge ordered by . kb 13:22 Discharged to home ambulatory. kg 13:22 Condition: good 13:22 Discharge instructions given to patient, Instructed on discharge instructions, follow up and referral plans. Demonstrated understanding of instructions, follow-up care. 13:24 Patient left the ED. kg Signatures: Bree Ibanez, ROLL CONTOUR GRINDER-C ROLL CONTOUR GRINDER-CkBlanche Naranjo ds1 Vanessa Reddy RN RN iw Liliya Martínez RN RN kg Yuri Lovelace RN RN da3
[2021-03-19 13:30] VITALS: BP 132/70; TEMP 98.8; O2SAT 100
== END 2021-03-19 13:24 | disposition home or self-care (01) ==
LOC: ER 11:16
DX: J02.9 Acute pharyngitis, unspecified (principal); Z20.822 Contact with and (suspected) exposure to COVID-19; Z88.1 Allergy status to other antibiotic agents
CPT/HCPCS: 0240U; 87070; 87081; 99281

== ENCOUNTER 2021-04-18 07:28 | Emergency (ER) | payer SELFPAY ==
--- OUTSIDE RECORDS SUMMARY | 2021-04-18 07:35 | XMS REPORT | Continuity of Care Document ---
:2001 Author Organization [facility] t Address [address] [place] [address] Care Team Providers Name Role Phone NO Primary Care Physician Unavailable Gita Attending Clinician [phone] Consatntin Attending Clinician [phone] Zhao Attending Clinician [phone] Vianey Attending Clinician Unavailable Mina Attending Clinician Unavailable Lorena Attending Clinician [phone] Oskar Attending Clinician Unavailable Hitesh Attending Clinician Unavailable Zain Attending Clinician [phone] Beck Attending Clinician Unavailable Jono Attending Clinician Unavailable Sharonda Attending Clinician Unavailable Paul KULKARNI Attending Clinician Unavailable Gita Unavailable [phone] Zhao Unavailable [phone] Zain Unavailable [id number] Payers Payer Name Policy Type Policy Number Effective Date Expiration Date Paul garza Gerardo Ray 11 [id number] 2020 2021 [facility] 0- 100% 00:00:00 00:00:00 Community Health Problems Condition Condition Condition Status Onset Resolution Last Treating Co mments Source Name Details Category Date Date Treatment Clinician Date Adjustment Condition Active 2021-03-20 Dante Pelayo disorder 8-11 18:40:19 Rebeca Com sebastian 00:00: ty 00 Health Overweight Condition Active 2020-12-17 Dante Churchill (BMI 5-10 20:10:48 Arbelia Communi 25-29.9) 00:00: ty 00 Health Immunizati Condition Active 2020-10-03 Dante Pelayo on 10-03 19:01:10 Rebeca Commu ni counseling 00:00: ty 00 Health Lymphadeno Condition Active 2020-10-05 Felixvasile Joeyrena adali 10-03 05:26:41 Rebeca Commu ni 00:00: ty 00 Health HIV Condition Active 2020-08-20 Tiffanie Pittman positive 08-20 15:21:12 Shima Commu ni 00:00: ty 00 Health Proctitis Problem Active [facility] Vomiting Problem Active [facility] Lymphadeno Problem [facility] Dermatitis Problem [facility] History of Past Illness Condition Condition Condition Status Onset Resolution Last Treating Co mments Source Name Details Category Date Date Treatment Clinician Date Screening Condition Inactiv 2021-03-21 2021-03-21 Dante Pelayo for std e 5-10 00:00:00 11:48:45 Rebeca Co mmuni 00:00: ty 00 Health Anal pain Condition Inactiv 2021-03-21 2021-03-21 Dante Pelayo e 5-10 00:00:00 11:48:45 Rebeca Com sebastian 00:00: ty 00 Health Anal Condition Inactiv 2020-2021-03-21 2021-03-21 Dante Pelayo ulcers e 5-10 00:00:00 11:48:45 Rebeca Com sebastian 00:00: ty 00 Health Macular Condition Inactiv 2021-03-21 2021-03-21 Dante Pelayo erythemato e -06 00:00:00 11:48:45 Rebeca Communi us rash 00:00: ty 00 Health Allergies, Adverse Reactions, Alerts Allergy Allergy Status Severity Reaction(s) Onset Inactive Treating Comm ents Source Name Type Date Date Clinician AMOXICIL Drug Active High Dante MONI allergy Criticali 1-15 Commun i (disorde ty 00:00: ty r) 00 Health amoxicil DA Active [place] 2019-08 [facility] 2[facility]29 [facility] No Known DA Active U 2019-08 [facility]ergie 2[facility] e [facility] Social History Social Habit Start Date Stop Date Quantity Comments Source time of call 2021-03-28 2021-03-28 03/28/2021 2:02 [facility] 14:02:36 14:02:36 PM Health if the patient is 2021-03-20 2021-03-20 No [facility] using/has used a 17:28:31 17:28:31 Health vaping item, Current, Former, Never Used, Not asked drug use 2021-03-20 2021-03-20 Never [facility] ty 17:28:31 17:28:31 Health alcohol use 2021-03-20 2021-03-20 Currently [facility] ity 17:28:31 17:28:31 Health passive cigarette 2021-03-20 2021-03-20 No [facility] smoke exposure 17:28:31 17:28:31 Health is there any chance 2021-03-20 2021-03-20 No [facility] that you could be 17:28:31 17:28:31 Health ? social history 2021-03-20 2021-03-20 reviewed today [facility] reviewed E&M 17:28:31 17:28:31 Health social history E&M 2021-03-20 2021-03-20 Single. Not [facility] 17:28:31 17:28:31 homeless. Born Health in [facility]. City: [place] . State: [place]. 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 Highest education level: high school graduate. Sex at : Male. Sexual orientation: River. Gender identity: Male. Gender of partner(s): Male. Age of first sexual intercourse: 18. Sexually Active: Yes. 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 Clinician (SIG) Name Name VALTREX 2020- No Arbelia 1 3xD 1 tablet Le gacy (VALACYCLOV 12-21 Zhao by mouth Co mmuni IR HCL) 1 00:00: 00:00 three ty GM TABS 00 :00 times a Health day VALTREX 2020- No Arbelia 1 3xD 1 tablet [place] (VALACYCLOV 12-17 Zhao by mouth Co mmuni IR HCL) 1 00:00: 00:00 three ty GM TABS 00 :00 times a Health day (DOXYCYCLIN 2020- No Arbelia 1 2xD 1 capsule [facility] E 12-17 Zhao by mouth Communi MONOHYDRATE 00:00: 00:00 twice a ty ) 100 MG 00 :00 day Health CAPS BIKTARVY Yes Rebeca 1{Table 1xD Take 1 [facility] (BICTEGRAVI 1-15 [place]ankow t} tablet by Antoinette bakermuni R-EMTRICITA 00:00: mouth once ty B-TENOFOV) 00 a day Health 50-200-25 MG TABS (HYDROXYZIN 2020- No Shima 1{Table 3xD 1 by mouth [facility] E HCL) 50 1-06 02-05 Zain t} three Commun i MG TABS 00:00: 00:00 times a ty 00 :00 day as Health needed for itching Doxycycline Doxycycline 2019- Yes [address] [facility] [facility]ate Hyclate 2-08 [facility] - 04:06: Patient [facility] s [facility] Immunizations Ordered Immunization Filled Immunization Date Status Commen ts Source Name Name Yuki 13 IM 2020-10-03 Completed [facility] unity [id number] 19:17:00 Health Engerix-B IM 20 2020-10-03 Completed [facility] MCG/ML [facility]:15[id number] Vital Signs Vital Name Observation Time Observation Value Comments Source blood pressure, 2021-03-20 17:28:31 76 mm[Hg] [facility] blood pressure, 2021-03-20 17:28:31 124 mm[Hg] [facility] systolic Health temperature E&M 2021-03-20 17:28:31 97.6 [degF] [facility] pulse rate 2021-03-20 17:28:31 69 /min [facility] oxygen saturation, 2021-03-20 17:28:31 97 /min [facility] oximetry Health weight E&M 2021-03-20 17:28:31 170.38 [facility]lb_av] [facility] weight percentile 2021-03-20 17:28:31 72 Leg [facility] weight in kilograms 2021-03-20 17:28:31 77.45 [facility] height in 2021-03-20 17:28:31 170.18 cm [facility] centimeters E&M Health height percentile 2021-03-20 17:28:31 18 Leg [facility] temperature site 2021-03-20 17:28:31 temporal Lega [facility] height in 2020-12-17 11:26:26 170.18 cm [facility] centimeters E&M Health height percentile 2020-12-17 11:26:[address] [facility] Health weight E&M 2020-12-17 11:26:26 174 [lb_av] [facility] Health weight percentile 2020-12-17 11:26:26 76 Leg [facility] weight in kilograms 2020-12-17 11:26:26 79.09 kg L [facility] E& Health oxygen saturation, 2020-12-17 11:26:26 96 /min [facility] blood pressure, 2020-12-17 11:26:26 53 mm[Hg] [facility] blood pressure, 2020-12-17 11:26:26 125 mm[Hg] [facility] systolic Health respiratory rate E&M 2020-12-17 11:26:26 16 /min [facility] Health pulse rate 2020-12-17 11:26:26 70 /min [facility] Health temperature E&M 2020-12-17 11:26:26 98.0 [degF] [facility] temperature site 2020-12-17 11:26:26 oral [facility] temperature site 2020-10-03 18:03:41 oral [facility] temperature E&M 2020-10-03 18:03:41 97.0 [degF] [facility] blood pressure, 2020-10-03 18:03:41 69 mm[Hg] [facility] Health blood pressure, 2020-10-03 18:03:41 123 mm[Hg] [facility] systolic Health pulse rate 2020-10-03 18:03:41 76 /min [facility] oxygen saturation, 2020-10-03 18:03:41 96 /min [facility] Health weight E&M 2020-10-03 18:03:41 172.50 [lb_av] [facility] weight percentile 2020-10-03 18:03:41 76 Leg [facility] weight in kilograms 2020-10-03 18:03:41 78.41 kg L [facility] E& Health height in 2020-10-03 18:03:41 170.18 [facility] E[facility] Health height percentile 2020-10-03 18:03:41 18 Leg [facility] height in 2020-08-24 10:15:42 170.18 [facility] centimeters E& Health height percentile 2020-08-24 10:15:42 18 Leg [facility] oxygen saturation, 2020-08-24 10:15:42 98 /min [facility] blood pressure, 2020-08-24 10:15:42 78 mm[Hg] Leg[facility] diastolic Health blood pressure, 2020-08-24 10:15:42 125 mm[Hg] [facility] Health pulse rate 2020-08-24 10:15:42 74 /min [facility] Health temperature E&M 2020-08-24 10:15:42 98.0 [degF] [facility] weight E&M 2020-08-24 10:15:42 159 [lb_av] [facility] weight percentile 2020-08-24 10:15:42 60 Leg [facility] weight in kilograms 2020-08-24 10:15:42 72.27 kg L [facility] E& Health temperature site 2020-08-24 10:15:42 oral Lega [facility] oxygen saturation, 2020-08-20 11:42:10 98 /min [facility] Health blood pressure, 2020-08-20 11:42:10 77 mm[Hg] [facility] diastolic [facility] blood pressure, 2020-08-20 11:42:10 123 mm[Hg] [facility] systolic Health respiratory rate E&M 2020-08-20 11:42:10 16 /min [facility] pulse rate 2020-08-20 11:42:10 90 /min [facility] Health temperature E&M 2020-08-20 11:42:10 98.3 [degF] [facility] weight E&M 2020-08-20 11:42:10 157 [lb_av] [facility] weight percentile 2020-08-20 11:42:10 57 Leg [facility] weight in kilograms 2020-08-20 11:42:10 71.36 kg L [facility] E& Health height in 2020-08-20 11:42:10 170.18 cm [facility] centimeters E&M Health height percentile 2020-08-20 11:42:10 18 Leg [facility] temperature site 2020-08-20 11:42:10 oral Lega cy [facility] oxygen saturation, 2020-08-15 15:03:43 97 /min [facility] oximetry Health respiratory rate E&M 2020-08-15 15:03:43 18 /min [facility] pulse rate 2020-08-15 15:03:43 109 /min [facility] 2020-08-15 15:03:43 98.8 [degF] Legac [facility] weight E&M 2020-08-15 15:03:43 150 [lb_av] [facility] weight percentile 2020-08-15 15:03:43 45 Leg [facility] weight in kilograms 2020-08-15 15:03:43 68.18 kg L [facility] E& Health temperature site 2020-08-15 15:03:43 oral Lega cy [facility] Oxygen saturation by 2020-08-07 11:07:00 99 /min [facility] - Pulse oximetry Patients [facility] Weight 2020-08-07 11:07:00 160 [lb_av] [facility] BMI (Body Mass 2020-08-07 11:07:00 24.3 kg/m2 [facility] Index[facility] Oxygen saturation by 2020-07-27 11:06:00 100 /min [facility] - Pulse oximetry Patients [facility] Weight 2020-07-27 11:06:00 160 [lb_av] [facility] BMI (Body Mass 2020-07-27 11:06:00 24.3 kg/m2 [facility] Index[facility] Body Temperature 2020-07-17 03:58:00 99.0 [degF] [facility] Heart Rate 2020-07-17 03:58:00 67 /min [facility] Respiratory rate 2020-07-17 03:58:00 19 /min [facility] BP Systolic 2020-07-17 03:58:00 106 mm[Hg] [facility] BP Diastolic 2020-07-17 03:58:00 46 mm[Hg] [facility] - Patients [facility] Oxygen saturation by 2020-07-17 03:58:00 98 /min [facility] - Pulse oximetry Patients [facility] Weight 2020-07-17 00:59:00 160 [lb_av] [facility] Patients [facility] BMI (Body Mass 2020-07-17 00:59:00 24.3 kg/m2 [facility] - Index) Patients [facility] Procedures Procedure Date / Time Performing Clinician Source Performed Health 2021-03-29 16:33:58 Ender Francis mmunity Education/Supportive Health Counseling Injection, ceftriaxone 2020-12-17 12:12:[address] [facility] sodium, per 500 mg Health Venipuncture 2020-12-17 12:09:04 [facility] 2020-10-26 09:41:46 Ender Francis mmunity Education/Supportive Health Counseling Primary Care Medical 2020-10-10 14:36:52 Traci Krishnamurthy [facility] Primary Care Medical 2020-10-10 09:08:16 Traci Krishnamurthy [facility] Primary Care - Service 2020-10-06 14:08:33 Traci Krishnamurthy y [facility] Primary Care - 2020-10-06 14:08:33 Traci Krishnamurthy [facility] Health [facility] Primary Care Medical 2020-10-06 14:08:33 Traci Krishnamurthy [facility] Health Addl Vx - Ix admin via 2020-10-03 19:16:[address] [facility] ID IM or jet injects Health without counseling by physician Prevnar 13 Intramuscular 2020-10-03 19:16:[address] [facility] Suspension Health First Vx - Ix admin via 2020-10-03 19:16:[address] [facility] ID IM or jet injects Health without counseling by physician Engerix-B Injection 2020-10-03 19:13:[address] [facility] Suspension 20 MCG/ML Health Vaccines Ordered - Print 2020-10-03 18:53:[address] [facility] Consent/Declination Health Forms Vision 2020-10-03 18:52:19 Rebeca Pelayo Com munity Health Dental - Internal 2020-10-03 18:51:33 Rebeca Pelayo C ommunity Health Health 2020-10-03 08:48:25 Ender Francis Co mmunity Education/Supportive Health Counseling Primary Care Medical 2020-10-02 09:45:11 Traci Krishnamurthy [facility] Case Management Health Primary Care Medical 2020-09-28 14:58:33 Funmilayo Landrum [facility] Case Management Health Meeting with Case Manger 2020-09-26 17:09:57 Raghu Traci [facility] 2020-08-24 12:30:21 Provider, [facility] Comm unity Education/Supportive Health Services Health Counseling Venipuncture 2020-08-24 10:52:59 Chiquis Churchill [facility] 2020-08-21 15:57:45 Ender Francis Leg[facility] Co mmunity Education/Supportive Health Counseling Health 2020-08-21 09:21:39 Ender Francis Co mmunity Education/Supportive Health Counseling HIV Navigation 2020-08-20 15:17:10 [facility] Venipuncture 2020-08-15 15:53:58 Shima Pittman [facility] Computed tomography of 2020-07-17 00:00:00 RENITA Maradiaga - abdomen and pelvis with Patients Medical contrast Center Plan of Care Planned Activity Planned Date Details Comments Source Instructions Allergic Reaction [facility] Encounters Start End Encounter Admission Attending Care Care Encounter Source Date/Time Date/Time Type Type Clinicians Facility Department ID 2021-03-20 2021-03-21 Office Rebeca Pelayo [facility] [id number] [facility] 00:00:00 00:00:00 Visit Gabi Killian [id number] [facility] 2020-12-17 2020-12-17 Office Chiquis Churchill [facility] [phone] [facility] 00:00:00 00:00:00 Visit Winters Valentine [id number] [facility] 2020-10-03 2020-10-05 Office Rebeca Pelayo [facility] [id number] [facility] 00:00:00 00:00:00 Visit Gabi Killian [id number] [facility] JeremiahCecily Mejia [facility] Gia Schmitt 2020-08-24 2020-08-24 Office Chiquis Churchill [facility] [phone] [facility] 00:00:00 00:00:00 Visit Sujit Proctor [id number] [facility] 2020-08-20 2020-08-20 Office Shima Pittman [facility] [id number] [facility] 00:00:00 00:00:00 Visit Zakiya Solares [phone] [facility] 2020-08-15 2020-08-17 Office Shima Pittman [facility] [id number] [facility] 00:00:00 00:00:00 Visit Ivonne Mcdonough [phone] [facility] 2020-08-07 2020-08-07 Departed [facility] [id number] 11:23:00 12:06:00 Emergency Patients 87 [facility] - Room [facility] 2020-07-27 2020-07-27 Departed [facility] [id number] 10:58:00 11:20:00 Emergency Patients 91 [facility] - Room [facility] 2020-07-17 2020-07-17 [id number] 01:14:00 04:19:00 Emergency AMBICA Patients 49 [facility] - Room [facility] Results Test Description Test Time Test Comments Results Result Comments Source hepatitis B surface antigen 2020-12-19 10:32:00 Test Item Value Reference Range Interpretation Comme nts hepatitis B surface antigen (test code = 79) Negative Negative [facility] antibody, [id number] 10:32:00 Test Item Value Reference Range Interpretation Comments hepatitis C antibody, serum (test code <0.1 0.0-0.9 = 5199-5) [facility] plasma reagin antibody, [id number] 10:32:00 Test Item Value Reference Range Interpretation Comments rapid plasma reagin antibody, Non Reactive Non Reactive serum (test code = 5291-0) [facility]HIV-1RNA, serum, by PCR, [id number] 10:32:00 Test Item Value Reference Range Interpretation Comments HIV-1RNA, serum, by PCR, quantitative 140 /mL (test code = 22612) [facility] HospitalLDL cholesterol, [id number] 10:32:00 Test Item Value Reference Range Interpretation Comments LDL cholesterol, serum (test code = 88 mg/dL 0-109 2088-1) [facility] [id number] 10:32:00 Test Item Value Reference Range Interpretation Comments very low density lipoproteins (test 12 mg/dL 5-40 code = 2091-7) [facility]HDL cholesterol, [id number] 10:32:00 Test Item Value Reference Range Interpretation Comments HDL cholesterol, serum (test code = 47 mg/dL >39 2084-9) [facility]lyceride, serum, [id number] 10:32:00 Test Item Value Reference Range Interpretation Comments triglyceride, serum, fasting (test 60 mg/dL 0-89 code = 2571-8) [facility] Hospitalcholesterol, [id number] 10:32:00 Test Item Value Reference Range Interpretation Comments cholesterol, serum (test code = 147 mg/dL 884-747 7847-3) [facility] aminotransferase (SGPT), [id number] 10:32:00 Test Item Value Reference Range Interpretation Comments alanine aminotransferase (SGPT), serum 12 1/L 0-44 (test code = 1742-6) [facility] Hospitalaspartate aminotransferase (SGOT), [id number] 10:32:00 Test Item Value Reference Range Interpretation Comments aspartate aminotransferase (SGOT), 16 1/L 0-40 serum (test code = 1920-8) [facility] Hospitalalkaline phosphatase, [id number] 10:32:00 Test Item Value Reference Range Interpretation Comments alkaline phosphatase, serum (test code 73 1/L 39-117 = 1783-0) [facility] Healthbilirubin, serum, [id number] 10:32:00 Test Item Value Reference Range Interpretation Comments bilirubin, serum, total (test code 0.5 mg/dL 0.0-1.2 = 1975-2) [facility] Healthalbumin/globulin ratio, [id number] 10:32:00 Test Item Value Reference Range Interpretation Comments albumin/globulin ratio, 1.6 (unknown unit) 1.2-2.2 serum (test code = 1759-0) [facility] Healthglobulin, [id number] 10:32:00 Test Item Value Reference Range Interpretation Comments globulin, serum (test code 2.7 (unknown unit) 1.5-4.5 = 2336-6) [facility] Healthalbumin, [id number] 10:32:00 Test Item Value Reference Range Interpretation Comments albumin, serum (test code = 1751-7) 4.4 g/dL 4.1-5.2 [facility]protein, total, [id number] 10:32:00 Test Item Value Reference Range Interpretation Comments protein, total, serum (test code = 7.1 g/dL 6.0-8.5 2885-2) [facility] Hospitalcalcium, [id number] 10:32:00 Test Item Value Reference Range Interpretation Comments calcium, serum (test code = 2000-03) 9.6 mg/dL 8.7-10.2 [facility] Hospitalcarbon dioxide, venous [id number] 10:32:00 Test Item Value Reference Range Interpretation Comments carbon dioxide, venous blood (test 24 mmol/L 20-29 code = 2026-1) [facility] Hospitalchloride, [id number] 10:32:00 Test Item Value Reference Range Interpretation Comments chloride, serum (test code = 100 mmol/L 96-106 5-0) [facility] Hospitalpotassium, [id number] 10:32:00 Test Item Value Reference Range Interpretation Comments potassium, serum (test code = 4.4 mmol/L 3.5-5.2 2823-3) [facility] Healthsodium, [id number] 10:32:00 Test Item Value Reference Range Interpretation Comments sodium, serum (test code = 2951-2) 139 mmol/L 134-144 [facility] Hospitalurea nitrogen/creatinine ratio, [id number] 10:32:00 Test Item Value Reference Range Interpretation Comments urea nitrogen/creatinine 12 (unknown unit) 9-20 ratio, serum (test code = 3097-3) [facility] HospitaleGFR if [id number] 10:32:00 Test Item Value Reference Range Interpretation Comments eGFR if 120 mL/min/{1.73 m2} >59 (test code = 96178-7) [facility] HospitalEstimated Glomerular Filtration Rate (calc)2020-12-19 10:32:00 Test Item Value Reference Range Interpretation Comments Estimated Glomerular 104 mL/min/{1.73 m2} >59 Filtration Rate (calc) (test code = 41079-2) [facility] Hospitalcreatinine, [id number] 10:32:00 Test Item Value Reference Range Interpretation Comments creatinine, serum (test code = 1.04 mg/dL 0.76-1.27 2160-0) [facility] Hospitalurea nitrogen, [id number] 10:32:00 Test Item Value Reference Range Interpretation Comments urea nitrogen, blood (test code = 12 mg/dL 6-20 3094-0) [facility] Hospitalblood glucose, [id number] 10:32:00 Test Item Value Reference Range Interpretation Comments blood glucose, random (test code = 89 mg/dL 65-99 2339-0) [facility]imm[facility] granulocytes, percentage of total cells, blood 2020-12-19 10:32:00 Test Item Value Reference Range Interpretation Comments immature granulocytes, percentage of 0 % total cells, blood (test code = 39244-3) [facility]basophil count, bnsphmfc3728-90-97 10:32:00 Test Item Value Reference Range Interpretation Comments basophil count, absolute (test 0.0 x10E3/uL 0.0-0.2 code = 60753-7) [facility] HospitalEosinophil Absolute Ldbka3696-77-22 10:32:00 Test Item Value Reference Range Interpretation Comments Eosinophil Absolute Count (test 0.2 X10E3/UL 0.0-0.4 code = 57670-3) [facility] Healthmonocyte count, blood, pabxhmcoy4775-59-65 10:32:00 Test Item Value Reference Range Interpretation Comments monocyte count, blood, automated 0.4 X10E3/UL 0.1-0.9 (test code = 742-7) [facility] Healthlymphocyte count, blood, iyoyevwqa1373-28-69 10:32:00 Test Item Value Reference Range Interpretation Comments lymphocyte count, blood, 1.1 X10E3/UL 0.7-3.1 automated (test code = 731-0) [facility] HealthAbsolute Efsqztnxoap5394-24-30 10:32:00 Test Item Value Reference Range Interpretation Comments Absolute Neutrophils (test code 2.8 X10E3/UL 1.4-7.0 = 64681-1) [facility] Healthbasophils as percent of blood qpvmbdmygb8050-02-47 10:32:00 Test Item Value Reference Range Interpretation Comments basophils as percent of blood 0 % leukocytes (test code = 707-0) [facility] Healtheosinophils as percent of blood lfqwyjyxaw6177-44-60 10:32:00 Test Item Value Reference Range Interpretation Comments eosinophils as percent of blood 3 % leukocytes (test code = 713-8) [facility] Healthmonocytes as percent of blood pdsokbldlx4554-75-14 10:32:00 Test Item Value Reference Range Interpretation Comments monocytes as percent of blood 9 % leukocytes (test code = 5905-5) [facility] Healthlymphocytes as percent of blood uynfouswec4074-78-55 10:32:00 Test Item Value Reference Range Interpretation Comments lymphocytes as percent of blood 25 % leukocytes (test code = 736-9) [facility] Healthneutrophils as percent of blood cwkrmbbuwn7169-58-46 10:32:00 Test Item Value Reference Range Interpretation Comments neutrophils as percent of blood 63 % leukocytes (test code = 770-8) [facility] Healthplatelet gezjy9166-59-84 10:32:00 Test Item Value Reference Range Interpretation Comments platelet count (test code = 208 X10E3/UL 150-450 777-3) [facility] Hospitalred blood cell distribution ppaay6148-13-01 10:32:00 Test Item Value Reference Range Interpretation Comments red blood cell distribution width 12.8 % 11.6-15.4 (test code = 788-0) [facility] corpuscular hemoglobin concentration, [id number] 10:32:00 Test Item Value Reference Range Interpretation Comments mean corpuscular hemoglobin 34.9 G/DL 31.5-35.7 concentration, RBC (test code = 786-4) [facility] corpuscular hemoglobin, [id number] 10:32:00 Test Item Value Reference Range Interpretation Comments mean corpuscular hemoglobin, RBC 31.6 pg 26.6-33.0 (test code = 785-6) [facility] corpuscular volume, [id number] 10:32:00 Test Item Value Reference Range Interpretation Comments mean corpuscular volume, RBC (test code 91 fL 79-97 = 787-2) [facility] Hospitalhematocrit, hhzvo7106-49-53 10:32:00 Test Item Value Reference Range Interpretation Comments hematocrit, blood (test code = 4544-3) 45.5 % 37.5-51.0 [facility] Hospitalhemoglobin, rfyzm0779-75-09 10:32:00 Test Item Value Reference Range Interpretation Comments hemoglobin, blood (test code = 15.9 g/dL 13.0-17.7 718-7) [facility] Hospitalerythrocyte (RBC) oumvb5882-19-07 10:32:00 Test Item Value Reference Range Interpretation Comments erythrocyte (RBC) count (test 5.03 X10E6/UL 4.14-5.80 code = 789-8) [facility] Hospitalleukocyte count, uoxcr8974-14-93 10:32:00 Test Item Value Reference Range Interpretation Comments leukocyte count, blood (test 4.5 X10E3/UL 3.4-10.8 code = 6690-2) [facility] HospitalCD4/CD8 fylyi3367-41-41 10:32:00 Test Item Value Reference Range Interpretation Comments CD4/CD8 ratio (test code 1.09 (unknown unit) 0.92-3.72 = 58490) [facility] HospitalT-suppressor cells (CD8) as percent of blood lymphocytes 2020-12-19 10:32:00 Test Item Value Reference Range Interpretation Comments T-suppressor cells (CD8) as percent of 35.2 % 12.0-35.5 blood lymphocytes (test code = 3517) [facility] Hospitalabsolute [id number] 10:32:00 Test Item Value Reference Range Interpretation Comments absolute CD8 (test code = 387 (unknown unit) 873-899 72124) [facility] HospitalT-helper cells (CD4) as percent of blood lymphocytes 2020-12-19 10:32:00 Test Item Value Reference Range Interpretation Comments T-helper cells (CD4) as percent of 38.5 % 30.8-58.5 blood lymphocytes (test code = 8123-2) [facility] HospitalT-helper cells (CD4) ymbhd2431-27-16 10:32:00 Test Item Value Reference Range Interpretation Comments T-helper cells (CD4) count (test code 424 /UL 359-0499 = 86214-8) [facility] Hospitalrapid plasma reagin antibody, cejmd2944-88-48 12:44:00 Test Item Value Reference Range Interpretation Comments rapid plasma reagin antibody, Non Reactive Non Reactive serum (test code = 5291-0) [facility] HospitalHERPES SIMPLEX VIRUS IDENTIFIED (PT; XXX; QL; )2020-12-17 12:17:00 Test Item Value Reference Range Interpretation Comments HERPES SIMPLEX VIRUS IDENTIFIED (PT; TYP1 A XXX; QL; ) (test code = 3557) [facility] HospitalNeisseria gonorrhoeae, throat hopgjyr7329-66-36 12:17:00 Test Item Value Reference Range Interpretation Comments Neisseria gonorrhoeae, throat Negative Negative culture (test code = 3553) [facility] HospitalGonorrhea Culture Pblnkf4773-53-74 12:17:00 Test Item Value Reference Range Interpretation Comments Gonorrhea Culture Rectum (test code Negative Negative = 90568778) [facility] Hospitalbilirubin, serum, jbsjwd4474-52-66 12:08:00 Test Item Value Reference Range Interpretation Comments bilirubin, serum, direct (test 0.11 mg/dL 0.00-0.40 code = 1968-7) [facility] Hospitalrapid plasma reagin antibody, iqniy0637-05-59 12:08:00 Test Item Value Reference Range Interpretation Comments rapid plasma reagin antibody, Non Reactive Non Reactive serum (test code = 5291-0) [facility] Hospitalhepatitis C antibody, ypxug7472-41-29 12:08:00 Test Item Value Reference Range Interpretation Comments hepatitis C antibody, serum (test code <0.1 0.0-0.9 = 5199-5) [facility] HospitalQuantiferon Gold TB blood test for tuberculosis screening 2020-08-24 12:08:00 Test Item Value Reference Range Interpretation Comments Quantiferon Gold TB blood test for Negative Negative tuberculosis screening (test code = 18851-8) [facility] Hospitalcreatinine, random, fshkq1512-35-07 12:08:00 Test Item Value Reference Range Interpretation Comments creatinine, random, urine (test 88.3 mg/dL code = 2161-8) [facility] HospitalLDL cholesterol, sexwl3267-39-39 12:08:00 Test Item Value Reference Range Interpretation Comments LDL cholesterol, serum (test code = 87 mg/dL 0-109 2088-1) [facility] Hospitalvery low density hszzxatqmgca7773-13-67 12:08:00 Test Item Value Reference Range Interpretation Comments very low density lipoproteins (test 10 mg/dL 5-40 code = 2091-7) [facility] HospitalHDL cholesterol, ynndc7491-93-51 12:08:00 Test Item Value Reference Range Interpretation Comments HDL cholesterol, serum (test code = 49 mg/dL >39 2084-9) [facility] Hospitaltriglyceride, serum, ggolznt7021-76-71 12:08:00 Test Item Value Reference Range Interpretation Comments triglyceride, serum, fasting (test 47 mg/dL 0-89 code = 2571-8) [facility] Hospitalcholesterol, utadq3180-06-31 12:08:00 Test Item Value Reference Range Interpretation Comments cholesterol, serum (test code = 146 mg/dL 593-829 7121-3) [facility] Hospitalbacteria, urine ppglrydofp8643-62-40 12:08:00 Test Item Value Reference Range Interpretation Comments bacteria, urine microscopy (test None seen None seen/Few code = 5769-5) [facility] Hospitalmucus on iouvzxygin2782-38-18 12:08:00 Test Item Value Reference Range Interpretation Comments mucus on urinalysis (test code = Present 8247-9) [facility] Hospitalepithelial cells, ileps0959-71-40 12:08:00 Test Item Value Reference Range Interpretation Comments epithelial cells, urine (test code = 0-10 0-10 5787-7) [facility] HospitalRBC, Rrmuj3022-54-66 12:08:00 Test Item Value Reference Range Interpretation Comments RBC, Urine (test code = 22375-7) 0-2 /hpf 0-2 [facility] Hospitalurinalysis, microscopic buqsledsfud8151-92-93 12:08:00 Test Item Value Reference Range Interpretation Comments urinalysis, microscopic See below: examination (test code = 03452-3) [facility] Hospitalnitrate, fkqzi6847-54-36 12:08:00 Test Item Value Reference Range Interpretation Comments nitrate, urine (test code = 05363-9) Negative Negative [facility] Hospitalurobilinogen, urine, semiquantitative (dipstick) 2020-08-24 12:08:00 Test Item Value Reference Range Interpretation Comments urobilinogen, urine, 0.2 (unknown 0.2-1.0 semiquantitative (dipstick) unit) (test code = 5818-0) [facility] Hospitalbilirubin, zltuo7335-89-62 12:08:00 Test Item Value Reference Range Interpretation Comments bilirubin, urine (test code = Negative Negative 5770-3) [facility] Hospitalketones, urine, by test sitvg8955-88-78 12:08:00 Test Item Value Reference Range Interpretation Comments ketones, urine, by test strip (test Negative Negative code = 5797-6) [facility] Hospitalglucose, urine, thfnzmxeqzpoahux5323-41-23 12:08:00 Test Item Value Reference Range Interpretation Comments glucose, urine, semiquantitative Negative Negative (test code = 5792-7) [facility] Hospitalprotein, urine, semiquantitative (dipstick)2020-08-24 12:08:00 Test Item Value Reference Range Interpretation Comments protein, urine, 6.5 (unknown semiquantitative (dipstick) unit) (test code = 1753-3) [facility] Hospitalleukocyte esterase, urine, by xdsvluny2774-66-81 12:08:00 Test Item Value Reference Range Interpretation Comments leukocyte esterase, urine, by dipstick 1+ Negative A (test code = 5799-2) [facility] Hospitalappearance, uwikv3648-00-83 12:08:00 Test Item Value Reference Range Interpretation Comments appearance, urine (test code = 5767-9) Clear Clear [facility] Hospitalurine bvcqu1753-34-82 12:08:00 Test Item Value Reference Range Interpretation Comments urine color (test code = 5778-6) Yellow Yellow [facility] HospitalpH, urine, dbaqhgkyujriedvx2099-08-37 12:08:00 Test Item Value Reference Range Interpretation Comments pH, urine, semiquantitative 6.5 (unknown 5.0-7.5 (test code = 5803-2) unit) [facility] Hospitalspecific gravity, body [id number] 12:08:00 Test Item Value Reference Range Interpretation Comments specific gravity, body 1.022 (unknown unit) 1.005-1.030 fluid (test code = 2964-5) [facility] Hospitalalanine aminotransferase (SGPT), yjezo7252-22-21 12:08:00 Test Item Value Reference Range Interpretation Comments alanine aminotransferase (SGPT), serum 21 1/L 0-44 (test code = 1742-6) [facility] Hospitalaspartate aminotransferase (SGOT), sxifq0706-30-82 12:08:00 Test Item Value Reference Range Interpretation Comments aspartate aminotransferase (SGOT), 20 1/L 0-40 serum (test code = 1920-8) [facility] Hospitalalkaline phosphatase, dniuy0783-72-67 12:08:00 Test Item Value Reference Range Interpretation Comments alkaline phosphatase, serum (test code 57 1/L 39-117 = 1783-0) [facility] Hospitalbilirubin, serum, qifqn0773-36-46 12:08:00 Test Item Value Reference Range Interpretation Comments bilirubin, serum, total (test code 0.3 mg/dL 0.0-1.2 = 1975-2) [facility] Hospitalalbumin/globulin ratio, huxjt1046-70-47 12:08:00 Test Item Value Reference Range Interpretation Comments albumin/globulin ratio, 1.8 (unknown unit) 1.2-2.2 serum (test code = 1759-0) [facility] Hospitalglobulin, bukfz2458-01-84 12:08:00 Test Item Value Reference Range Interpretation Comments globulin, serum (test code 2.6 (unknown unit) 1.5-4.5 = 2336-6) [facility] Healthalbumin, woczf6974-23-79 12:08:00 Test Item Value Reference Range Interpretation Comments albumin, serum (test code = 1751-7) 4.7 g/dL 4.1-5.2 [facility] Hospitalprotein, total, bbjxh5861-79-32 12:08:00 Test Item Value Reference Range Interpretation Comments protein, total, serum (test code = 7.3 g/dL 6.0-8.5 2885-2) [facility] Hospitalcalcium, [id number] 12:08:00 Test Item Value Reference Range Interpretation Comments calcium, serum (test code = 1999-8) 9.4 mg/dL 8.7-10.2 [facility] Hospitalcarbon dioxide, venous gbjuf2907-33-34 12:08:00 Test Item Value Reference Range Interpretation Comments carbon dioxide, venous blood (test 26 mmol/L 20-29 code = 2027-1) [facility] Hospitalchloride, dnbla1099-15-30 12:08:00 Test Item Value Reference Range Interpretation Comments chloride, serum (test code = 100 mmol/L 96-106 2075-0) [facility] Hospitalpotassium, xqoqt0750-19-81 12:08:00 Test Item Value Reference Range Interpretation Comments potassium, serum (test code = 4.2 mmol/L 3.5-5.2 2823-3) [facility] Hospitalsodium, iixsu1142-34-07 12:08:00 Test Item Value Reference Range Interpretation Comments sodium, serum (test code = 2951-2) 140 mmol/L 134-144 [facility] Hospitalurea nitrogen/creatinine ratio, txusy3309-97-22 12:08:00 Test Item Value Reference Range Interpretation Comments urea nitrogen/creatinine 20 (unknown unit) 9-20 ratio, serum (test code = 3097-3) [facility] HealtheGFR if Vpbzxkly6305-00-05 12:08:00 Test Item Value Reference Range Interpretation Comments eGFR if 153 mL/min/{1.73 m2} >59 (test code = 80447-6) [facility] HospitalEstimated Glomerular Filtration Rate (calc)2020-08-24 12:08:00 Test Item Value Reference Range Interpretation Comments Estimated Glomerular 132 mL/min/{1.73 m2} >59 Filtration Rate (calc) (test code = 72488-5) [facility] Hospitalcreatinine, szgsh2798-23-20 12:08:00 Test Item Value Reference Range Interpretation Comments creatinine, serum (test code = 0.76 mg/dL 0.76-1.27 2160-0) [facility] Hospitalurea nitrogen, gbrwp4409-19-54 12:08:00 Test Item Value Reference Range Interpretation Comments urea nitrogen, blood (test code = 15 mg/dL 6-20 3094-0) [facility] Hospitalblood glucose, qpcdvy2797-48-90 12:08:00 Test Item Value Reference Range Interpretation Comments blood glucose, random (test code = 86 mg/dL 65-99 2339-0) [facility] Hospitalimmature granulocytes, percentage of total cells, blood 2020-08-24 12:08:00 Test Item Value Reference Range Interpretation Comments immature granulocytes, percentage of 0 % total cells, blood (test code = 59161-4) [facility] Hospitalbasophil count, nzfyiwim5515-18-79 12:08:00 Test Item Value Reference Range Interpretation Comments basophil count, absolute (test 0.1 x10E3/uL 0.0-0.2 code = 96247-7) [facility] HospitalEosinophil Absolute Nptsq4258-98-20 12:08:00 Test Item Value Reference Range Interpretation Comments Eosinophil Absolute Count (test 0.1 X10E3/UL 0.0-0.4 code = 94472-5) [facility] Hospitalmonocyte count, blood, dhykdwefh0891-20-65 12:08:00 Test Item Value Reference Range Interpretation Comments monocyte count, blood, automated 0.6 X10E3/UL 0.1-0.9 (test code = 742-7) [facility] Hospitallymphocyte count, blood, zdruwrfdb2262-09-87 12:08:00 Test Item Value Reference Range Interpretation Comments lymphocyte count, blood, 1.7 X10E3/UL 0.7-3.1 automated (test code = 731-0) [facility] HospitalAbsolute Amhcqytszmz7450-29-22 12:08:00 Test Item Value Reference Range Interpretation Comments Absolute Neutrophils (test code 3.6 X10E3/UL 1.4-7.0 = 57427-1) [facility] Hospitalbasophils as percent of blood gqsrgfpzzv4929-80-56 12:08:00 Test Item Value Reference Range Interpretation Comments basophils as percent of blood 1 % leukocytes (test code = 707-0) [facility] Hospitaleosinophils as percent of blood nljsnhkirx4516-08-47 12:08:00 Test Item Value Reference Range Interpretation Comments eosinophils as percent of blood 2 % leukocytes (test code = 713-8) [facility] Healthmonocytes as percent of blood hgtgqdntmw6083-88-52 12:08:00 Test Item Value Reference Range Interpretation Comments monocytes as percent of blood 9 % leukocytes (test code = 5905-5) [facility] Hospitallymphocytes as percent of blood etnctcbarx7986-31-21 12:08:00 Test Item Value Reference Range Interpretation Comments lymphocytes as percent of blood 28 % leukocytes (test code = 736-9) [facility] Hospitalneutrophils as percent of blood nxxmreizgg4166-34-69 12:08:00 Test Item Value Reference Range Interpretation Comments neutrophils as percent of blood 60 % leukocytes (test code = 770-8) [facility] Hospitalplatelet mhxfj3061-87-37 12:08:00 Test Item Value Reference Range Interpretation Comments platelet count (test code = 163 X10E3/UL 150-450 777-3) [facility] Hospitalred blood cell distribution rgoxm5458-47-92 12:08:00 Test Item Value Reference Range Interpretation Comments red blood cell distribution width 12.9 % 11.6-15.4 (test code = 788-0) [facility] corpuscular hemoglobin concentration, [id number] 12:08:00 Test Item Value Reference Range Interpretation Comments mean corpuscular hemoglobin 34.0 G/DL 31.5-35.7 concentration, RBC (test code = 786-4) [facility] corpuscular hemoglobin, [id number] 12:08:00 Test Item Value Reference Range Interpretation Comments mean corpuscular hemoglobin, RBC 31.3 pg 26.6-33.0 (test code = 785-6) [facility] corpuscular volume, [id number] 12:08:00 Test Item Value Reference Range Interpretation Comments mean corpuscular volume, RBC (test code 92 fL 79-97 = 787-2) [facility] Hospitalhematocrit, hsoix0321-83-89 12:08:00 Test Item Value Reference Range Interpretation Comments hematocrit, blood (test code = 4544-3) 41.8 % 37.5-51.0 [facility] Hospitalhemoglobin, tsxhm0041-88-56 12:08:00 Test Item Value Reference Range Interpretation Comments hemoglobin, blood (test code = 14.2 g/dL 13.0-17.7 718-7) [facility] Hospitalerythrocyte (RBC) raekc7414-86-80 12:08:00 Test Item Value Reference Range Interpretation Comments erythrocyte (RBC) count (test 4.54 X10E6/UL 4.14-5.80 code = 789-8) [facility] Hospitalleukocyte count, [id number] 12:08:00 Test Item Value Reference Range Interpretation Comments leukocyte count, blood (test 6.0 X10E3/UL 3.4-10.8 code = 6690-2) [facility] HospitalT-helper cells (CD4) as percent of blood lymphocytes 2020-08-24 12:08:00 Test Item Value Reference Range Interpretation Comments T-helper cells (CD4) as percent of 19.2 % 30.8-58.5 L blood lymphocytes (test code = 8123-2) [facility] HospitalT-helper cells (CD4) zficj6004-38-89 12:08:00 Test Item Value Reference Range Interpretation Comments T-helper cells (CD4) count (test code 326 /UL 359-1519 L = 86650-9) [facility] HospitalCD4/CD8 bwgbo6525-69-00 12:08:00 Test Item Value Reference Range Interpretation Comments CD4/CD8 ratio (test code 0.28 (unknown unit) 0.92-3.72 L = 56061) [facility] HospitalT-suppressor cells (CD8) as percent of blood lymphocytes 2020-08-24 12:08:00 Test Item Value Reference Range Interpretation Comments T-suppressor cells (CD8) as percent of 68.8 % 12.0-35.5 H blood lymphocytes (test code = 3517) [facility] Hospitalabsolute [id number] 12:08:00 Test Item Value Reference Range Interpretation Comments absolute CD8 (test code = 1170 (unknown unit) 109-897 H 73463) [facility] Hospitalhepatitis A antibody, btzjt6126-85-29 12:08:00 Test Item Value Reference Range Interpretation Comments hepatitis A antibody, total (test Positive Negative A code = 75) [facility], cgluk1004-61-96 12:08:00 Test Item Value Reference Range Interpretation Comments hepatitis B core antibody, total Negative Negative (test code = 77) [facility] Centerpat[facility] surface zevkkve0674-60-43 12:08:00 Test Item Value Reference Range Interpretation Comments hepatitis B surface antigen (test Negative Negative code = 79) [facility] HospitalHIV-2 antibodies, western qrah6251-59-92 12:08:00 Test Item Value Reference Range Interpretation Comments HIV-2 antibodies, western blot (test Negative Negative code = 89230) [facility] HospitalHIV-1/HIV-2 Ab, hbawt1482-08-21 12:08:00 Test Item Value Reference Range Interpretation Comments HIV-1/HIV-2 Ab, serum (test code = Positive Negative A 3399) [facility]Chemilumines[facility] Microparticle Immuno Assay) 2020-08-24 12:08:00 Test Item Value Reference Range Interpretation Comments HIV-CMIA (Chemiluminescent Reactive Non Reactive A Microparticle Immuno Assay) (test code = 590454) [facility] [id number] 12:08:00 Test Item Value Reference Range Interpretation Comments human leukocyte antigen B57 (test Negative code = 465502) [facility] Hospitaltoxoplasma gondii antibody, [id number] 12:08:00 Test Item Value Reference Range Interpretation Comments toxoplasma gondii antibody, IgG (test <3.0 0.0-7.1 code = 2430) [facility] surface hxkwhvsh7566-22-98 12:08:00 Test Item Value Reference Range Interpretation Comments hepatitis B surface antibody Non Reactive (test code = 78) [facility] rabeny7056-24-78 12:08:00 Test Item Value Reference Range Interpretation Comments HIV genotype result (test code = GENRTI 31143) [facility], serum, by PCR, wnvhskzwlrou1815-60-09 12:08:00 Test Item Value Reference Range Interpretation Comments HIV-1RNA, serum, by PCR, 688000 /mL quantitative (test code = 87558) [facility] HospitalWBC urine on bhgwwylkpx9400-82-80 12:08:00 Test Item Value Reference Range Interpretation Comments WBC urine on microscopy (test code 11-30 /hpf 0-5 A = 1016) [facility] HospitalGonorrhea Culture Ddkbgz1737-21-93 11:08:00 Test Item Value Reference Range Interpretation Comments Gonorrhea Culture Rectum (test code Negative Negative = 61994760) [facility] Hospitalhepatitis C antibody, nkhdu4641-60-24 16:26:00 Test Item Value Reference Range Interpretation Comments hepatitis C antibody, serum (test code <0.1 0.0-0.9 = 5199-5) [facility] Hospitalrapid plasma reagin antibody, xkzxg4339-82-98 16:26:00 Test Item Value Reference Range Interpretation Comments rapid plasma reagin antibody, Non Reactive Non Reactive serum (test code = 5291-0) [facility] HospitalNeisseria gonorrhoeae DNA [id number] 16:26:00 Test Item Value Reference Range Interpretation Comments Neisseria gonorrhoeae DNA probe Negative Negative (test code = 76034-9) [facility] Hospitalchlamydia DNA [id number] 16:26:00 Test Item Value Reference Range Interpretation Comments chlamydia DNA probe (test code = Negative Negative 48129-8) [facility] Hospitalbacteria, urine qslznzgtjm8695-62-70 16:26:00 Test Item Value Reference Range Interpretation Comments bacteria, urine microscopy (test None seen None seen/Few code = 5769-5) [facility] Hospitalmucus on zmqwmzdver4962-29-88 16:26:00 Test Item Value Reference Range Interpretation Comments mucus on urinalysis (test code = Present 8247-9) [facility] Hospitalepithelial cells, ehqfy8528-95-48 16:26:00 Test Item Value Reference Range Interpretation Comments epithelial cells, urine (test code = 0-10 0-10 5787-7) [facility] HospitalRBC, Bcwgb0395-62-69 16:26:00 Test Item Value Reference Range Interpretation Comments RBC, Urine (test code = 32740-7) 0-2 /hpf 0-2 [facility] Hospitalurinalysis, microscopic yxuwbjgdzdq0919-19-03 16:26:00 Test Item Value Reference Range Interpretation Comments urinalysis, microscopic See below: examination (test code = 62707-2) [facility] Hospitalnitrate, jcdbp8180-31-19 16:26:00 Test Item Value Reference Range Interpretation Comments nitrate, urine (test code = 24721-3) Negative Negative [facility] Hospitalurobilinogen, urine, semiquantitative (dipstick) 2020-08-15 16:26:00 Test Item Value Reference Range Interpretation Comments urobilinogen, urine, 0.2 (unknown 0.2-1.0 semiquantitative (dipstick) unit) (test code = 5818-0) [facility] Hospitalbilirubin, fnmpq5521-42-78 16:26:00 Test Item Value Reference Range Interpretation Comments bilirubin, urine (test code = Negative Negative 5770-3) [facility] Hospitalketones, urine, by test wkzug1048-28-04 16:26:00 Test Item Value Reference Range Interpretation Comments ketones, urine, by test strip (test Negative Negative code = 5797-6) [facility] Hospitalglucose, urine, uxvvlysslqsfhsyx8086-49-52 16:26:00 Test Item Value Reference Range Interpretation Comments glucose, urine, semiquantitative Negative Negative (test code = 5792-7) [facility] Hospitalprotein, urine, semiquantitative (dipstick)2020-08-15 16:26:00 Test Item Value Reference Range Interpretation Comments protein, urine, semiquantitative Trace Negative/Trace (dipstick) (test code = 1753-3) [facility] Hospitalleukocyte esterase, urine, by spdspwht5327-17-52 16:26:00 Test Item Value Reference Range Interpretation Comments leukocyte esterase, urine, by dipstick Trace Negative A (test code = 5799-2) [facility] Hospitalappearance, kfxwf1741-97-69 16:26:00 Test Item Value Reference Range Interpretation Comments appearance, urine (test code = 5767-9) Cloudy Clear A [facility] Hospitalurine vbmfa9845-65-55 16:26:00 Test Item Value Reference Range Interpretation Comments urine color (test code = 5778-6) Yellow Yellow [facility] HospitalpH, urine, ofbhuqmfcabagnmt0840-62-55 16:26:00 Test Item Value Reference Range Interpretation Comments pH, urine, semiquantitative 7.5 (unknown 5.0-7.5 (test code = 5803-2) unit) [facility] Hospitalspecific gravity, body loiii4084-69-45 16:26:00 Test Item Value Reference Range Interpretation Comments specific gravity, body 1.026 (unknown unit) 1.005-1.030 fluid (test code = 2964-5) [facility] Hospitalalanine aminotransferase (SGPT), bpeew2322-55-92 16:26:00 Test Item Value Reference Range Interpretation Comments alanine aminotransferase (SGPT), serum 42 1/L 0-44 (test code = 1742-6) [facility] Hospitalaspartate aminotransferase (SGOT), tytja0950-21-49 16:26:00 Test Item Value Reference Range Interpretation Comments aspartate aminotransferase (SGOT), 22 1/L 0-40 serum (test code = 1920-8) [facility] Hospitalalkaline phosphatase, infcu7962-18-00 16:26:00 Test Item Value Reference Range Interpretation Comments alkaline phosphatase, serum (test code 70 1/L 39-117 = 1783-0) [facility] Hospitalbilirubin, serum, vapyz2563-60-70 16:26:00 Test Item Value Reference Range Interpretation Comments bilirubin, serum, total (test code 0.5 mg/dL 0.0-1.2 = 1975-2) [facility] Hospitalalbumin/globulin ratio, elhhd4365-06-30 16:26:00 Test Item Value Reference Range Interpretation Comments albumin/globulin ratio, 1.5 (unknown unit) 1.2-2.2 serum (test code = 1759-0) [facility] Healthglobulin, fgxyz4122-26-23 16:26:00 Test Item Value Reference Range Interpretation Comments globulin, serum (test code 3.3 (unknown unit) 1.5-4.5 = 2336-6) [facility] Hospitalalbumin, envyp3605-44-27 16:26:00 Test Item Value Reference Range Interpretation Comments albumin, serum (test code = 1751-7) 4.8 g/dL 4.1-5.2 [facility] Hospitalprotein, total, aypzj2124-05-34 16:26:00 Test Item Value Reference Range Interpretation Comments protein, total, serum (test code = 8.1 g/dL 6.0-8.5 5945-2) [facility] Hospitalcalcium, mezqm4671-10-12 16:26:00 Test Item Value Reference Range Interpretation Comments calcium, serum (test code = 1999-8) 9.7 mg/dL 8.7-10.2 [facility] Hospitalcarbon dioxide, venous jjwvx7509-36-14 16:26:00 Test Item Value Reference Range Interpretation Comments carbon dioxide, venous blood (test 19 mmol/L 20-29 L code = 2027-1) [facility] Healthchloride, sloty6270-49-73 16:26:00 Test Item Value Reference Range Interpretation Comments chloride, serum (test code = 103 mmol/L 96-106 5-0) [facility] Hospitalpotassium, nzvae3384-14-83 16:26:00 Test Item Value Reference Range Interpretation Comments potassium, serum (test code = 4.3 mmol/L 3.5-5.2 2823-3) [facility] Hospitalsodium, aymnb4044-88-53 16:26:00 Test Item Value Reference Range Interpretation Comments sodium, serum (test code = 2951-2) 138 mmol/L 134-144 [facility] Hospitalurea nitrogen/creatinine ratio, fzabo9326-21-24 16:26:00 Test Item Value Reference Range Interpretation Comments urea nitrogen/creatinine 11 (unknown unit) 9-20 ratio, serum (test code = 3097-3) [facility] HealtheGFR if Qqhrsnhj9503-40-05 16:26:00 Test Item Value Reference Range Interpretation Comments eGFR if 135 mL/min/{1.73 m2} >59 (test code = 55532-0) [facility] HospitalEstimated Glomerular Filtration Rate (calc)2020-08-15 16:26:00 Test Item Value Reference Range Interpretation Comments Estimated Glomerular 117 mL/min/{1.73 m2} >59 Filtration Rate (calc) (test code = 01294-6) [facility] Hospitalcreatinine, tcroo1003-72-11 16:26:00 Test Item Value Reference Range Interpretation Comments creatinine, serum (test code = 0.94 mg/dL 0.76-1.27 0-0) [facility] Hospitalurea nitrogen, awxqd5634-53-45 16:26:00 Test Item Value Reference Range Interpretation Comments urea nitrogen, blood (test code = 10 mg/dL 6-20 3094-0) [facility] Hospitalblood glucose, taisuk3698-66-65 16:26:00 Test Item Value Reference Range Interpretation Comments blood glucose, random (test code = 95 mg/dL 65-99 2339-0) [facility] Hospitalimmature granulocytes, percentage of total cells, blood 2020-08-15 16:26:00 Test Item Value Reference Range Interpretation Comments immature granulocytes, percentage of 1 % total cells, blood (test code = 22992-9) [facility] Healthbasophil count, vtbtmsns6523-66-89 16:26:00 Test Item Value Reference Range Interpretation Comments basophil count, absolute (test 0.1 x10E3/uL 0.0-0.2 code = 49844-6) [facility] HealthEosinophil Absolute Whszl5922-53-98 16:26:00 Test Item Value Reference Range Interpretation Comments Eosinophil Absolute Count (test 0.2 X10E3/UL 0.0-0.4 code = 85697-3) [facility] Hospitalmonocyte count, blood, pneqmuiew4108-11-51 16:26:00 Test Item Value Reference Range Interpretation Comments monocyte count, blood, automated 1.1 X10E3/UL 0.1-0.9 H (test code = 742-7) [facility] Hospitallymphocyte count, blood, jogkornim3476-03-80 16:26:00 Test Item Value Reference Range Interpretation Comments lymphocyte count, blood, 4.4 X10E3/UL 0.7-3.1 H automated (test code = 731-0) [facility] HospitalAbsolute Gmzkiplypye9629-53-22 16:26:00 Test Item Value Reference Range Interpretation Comments Absolute Neutrophils (test code 5.3 X10E3/UL 1.4-7.0 = 94301-5) [facility] Hospitalbasophils as percent of blood fvlkuighpw1964-24-27 16:26:00 Test Item Value Reference Range Interpretation Comments basophils as percent of blood 1 % leukocytes (test code = 707-0) [facility] Healtheosinophils as percent of blood keoantfmcw4028-37-50 16:26:00 Test Item Value Reference Range Interpretation Comments eosinophils as percent of blood 2 % leukocytes (test code = 713-8) [facility] Healthmonocytes as percent of blood eqvdivzymq9314-80-54 16:26:00 Test Item Value Reference Range Interpretation Comments monocytes as percent of blood 10 % leukocytes (test code = 5905-5) [facility] Hospitallymphocytes as percent of blood jxzproxupi4039-10-53 16:26:00 Test Item Value Reference Range Interpretation Comments lymphocytes as percent of blood 39 % leukocytes (test code = 736-9) [facility] Hospitalneutrophils as percent of blood mvcqesptdb7016-41-30 16:26:00 Test Item Value Reference Range Interpretation Comments neutrophils as percent of blood 47 % leukocytes (test code = 770-8) [facility] Hospitalplatelet psizy9169-42-29 16:26:00 Test Item Value Reference Range Interpretation Comments platelet count (test code = 210 X10E3/UL 150-450 777-3) [facility] Hospitalred blood cell distribution vyomm3431-71-07 16:26:00 Test Item Value Reference Range Interpretation Comments red blood cell distribution width 12.9 % 11.6-15.4 (test code = 788-0) [facility] corpuscular hemoglobin concentration, [id number] 16:26:00 Test Item Value Reference Range Interpretation Comments mean corpuscular hemoglobin 34.4 G/DL 31.5-35.7 concentration, RBC (test code = 786-4) [facility] corpuscular hemoglobin, CIW8597-53-97 16:26:00 Test Item Value Reference Range Interpretation Comments mean corpuscular hemoglobin, RBC 31.1 pg 26.6-33.0 (test code = 785-6) [facility] corpuscular volume, YVM2712-67-26 16:26:00 Test Item Value Reference Range Interpretation Comments mean corpuscular volume, RBC (test code 90 fL 79-97 = 787-2) [facility] Hospitalhematocrit, yobky2134-82-33 16:26:00 Test Item Value Reference Range Interpretation Comments hematocrit, blood (test code = 4544-3) 48.3 % 37.5-51.0 [facility] Hospitalhemoglobin, qeqir7620-63-75 16:26:00 Test Item Value Reference Range Interpretation Comments hemoglobin, blood (test code = 16.6 g/dL 13.0-17.7 718-7) [facility] Hospitalerythrocyte (RBC) dkzxw3400-98-34 16:26:00 Test Item Value Reference Range Interpretation Comments erythrocyte (RBC) count (test 5.34 X10E6/UL 4.14-5.80 code = 789-8) [facility] Hospitalleukocyte count, fscqu8198-41-15 16:26:00 Test Item Value Reference Range Interpretation Comments leukocyte count, blood (test 11.1 X10E3/UL 3.4-10.8 H code = 6690-2) [facility] Hospitalphencyclidine screen, bxhgs0517-63-25 16:26:00 Test Item Value Reference Range Interpretation Comments phencyclidine screen, urine (test Negative Cutoff=25 code = 3936-2) [facility] Hospitalopiates, urine, wadiqskzodvfqidr3262-32-78 16:26:00 Test Item Value Reference Range Interpretation Comments opiates, urine, semiquantitative Negative Urlwbt=005 (test code = 3879-4) [facility] Hospitalcannabinoid screen, zscet7892-38-12 16:26:00 Test Item Value Reference Range Interpretation Comments cannabinoid screen, urine (test code Negative Cutoff=50 = 3426-4) [facility] Hospitalbenzodiazepine screen, dtxiq7013-94-16 16:26:00 Test Item Value Reference Range Interpretation Comments benzodiazepine screen, urine (test Negative Fsalsd=387 code = 3390-2) [facility] Hospitalamphetamine screen, nohnd6273-64-66 16:26:00 Test Item Value Reference Range Interpretation Comments amphetamine screen, urine (test code Negative Cgacvh=4139 = 3349-8) [facility] Hospitalhepatitis B surface kxejxfv9664-55-71 16:26:00 Test Item Value Reference Range Interpretation Comments hepatitis B surface antigen (test Negative Negative code = 79) [facility] HospitalHIV-2 antibodies, western upgr0411-86-16 16:26:00 Test Item Value Reference Range Interpretation Comments HIV-2 antibodies, western blot (test Negative Negative code = 24876) [facility] HospitalHIV-1/HIV-2 Ab, iaqmr0391-01-87 16:26:00 Test Item Value Reference Range Interpretation Comments HIV-1/HIV-2 Ab, serum (test code = Positive Negative A 3399) [facility] HospitalHIV-CMIA (Chemiluminescent Microparticle Immuno Assay) 2020-08-15 16:26:00 Test Item Value Reference Range Interpretation Comments HIV-CMIA (Chemiluminescent Reactive Non Reactive A Microparticle Immuno Assay) (test code = 619488) [facility] HospitalW urine on wtymwfzmae9363-68-08 16:26:00 Test Item Value Reference Range Interpretation Comments WBC urine on microscopy (test code 6-10 /hpf 0-5 A = 1016) [facility] Hospitalalcohol, bslpn8582-06-16 16:26:00 Test Item Value Reference Range Interpretation Comments alcohol, urine (test code = 2458) Negative % Cutoff=0.020 [facility] Hospitalcocaine, thhlv4150-38-71 16:26:00 Test Item Value Reference Range Interpretation Comments cocaine, urine (test code = 3292) Negative Wfwyqs=716 [facility] Hospitalbarbiturates screen, mknwa0976-06-50 16:26:00 Test Item Value Reference Range Interpretation Comments barbiturates screen, urine (test Negative Ydcdmh=313 code = 2460) [facility] HospitalBASIC METABOLIC HHJWV4388-06-26 17:17:00 Test Item Value Reference Range Interpretation [...] MDRD formula.Chronic kidney disease is defined as [facility] kidney damageor GFR <60 mL/min/1.73 m2 for >3 months. CREATININE (test code 0.83 mg/dL 0.55-1.3 N = CREAT) BUN/CREATININE RATIO 13.3 10-20 N (test code = BUN/CREA) CALCIUM (test code = 9.2 mg/dL 8.4-10.2 N CA) MONO [id number] 17:13:00 Test Item Value Reference Range Interpretation Comments MONO SCREEN (test code = MONO) NEGATIVE NEGATIVE CBC W/AUTO [id number] 17:08:00 Test Item Value Reference Range Interpretation [...] 0.0-0.2 N Streptococcus pyogenes antigen detection in etltfe5164-49-09 11:16:00 Test Item Value Reference Range Interpretation Comments Group A Streptococcus Screen (test NEGATIVE NEGATIVE code = 77085-0) [facility] GQIZOK2383-88-45 05:08:00 Test Item Value Reference Range Interpretation Comments STREPTOCOCCUS DYSGALACTIAE NEGATIVE FOR G/C NEGATIVE (test code = STREPGC) STREPA MOLECULAR (test NEGATIVE FOR GRP A NEGATIVE code = STREPAMOL) COVID 19 INHOUSE [id number] 12:14:00 Test Item Value Reference Range Interpretation Comments COVID 19 INHOUSE AG (test code = NEGATIVE [id number]) CHEST SINGLE (PORTABLE)2020-07-17 02:54:00 [facility] 2000 Sex: M [place] [address] Patient Name: MAXIMILIAN MAGANA MR #: [id number] : 2000 Age/Sex: 20/M Req #: [id number] Adm Physician: Ordered by: SHYANN KULKARNI DO Report #: [id number] Location: ER Room/Bed: Procedure: [id number] DX/CHESTSINGLE (PORTABLE) Exam Date: 07/17/20 Exam Time: [...] virus A and B antigen identification by plttjuzoltbspexawa7901-54-29 02:45:00 Test Item Value Reference Range Interpretation Comments Influenza Virus Types A,B Antigen NEGATIVE NEGATIVE (test code = 17277-6) [facility]Influ[facility] virus A and B antigen identification by kjykrfkytaynyhldpv4252-17-95 02:45:00 Test Item Value Reference Range Interpretation Comments Influenza Virus Types A,B Antigen NEGATIVE NEGATIVE (test code = 93656-9) [facility]neyInflu[facility] virus A and B antigen identification by lvvmjnhzaijqxxsxzo2119-41-23 02:45:00 Test Item Value Reference Range Interpretation Comments Influenza Virus Types A,B Antigen NEGATIVE NEGATIVE (test code = 62469-5) [facility]neyInflu[facility] virus A and B antigen identification by cgmsjkcdpinwodftqe2600-64-68 02:45:00 Test Item Value Reference Range Interpretation Comments Influenza Virus Types A,B Antigen NEGATIVE NEGATIVE (test code = 83503-8) [facility]neyCT ABDOMEN/PELVIS [id number] 02:39:00 [facility] : 2000 Sex: M [place] [address] Patient Name: MAXIMILIAN MAGANA MR #: [id number] : 2000 Age/Sex: 20/M Req #: [id number] [facility] Physician: Ordered by: SHYANN KULKARNI DO Report #: [id number] Location: ER Room/Bed: Procedure: [id number] CT/CT ABDOMEN/PELVIS W Exam Date: 07/17/20 Exam Time: 144 REPORT STATUS: Signed EXAM: CT Abdomen and Pelvis WITH contrast INDICATION: Y abd pain [id number] COMPARISON: None. TECHNIQUE: Abdomen and pelvis [...] on 07/17/20253 COPY TO: SHYANN KULKARNI DOBlood monocytes automated count (number/volume)2020-07-17 01:10:00 Test Item Value Reference Range Interpretation Comments Monocytes # (Auto) (test code = 742-7) 0.3 0.2-0.8 [facility] McKinneyAutomated blood eosinophil count 2020-07-17 01:10:00 Test Item Value Reference Range Interpretation Comments Eosinophils # (Auto) (test code = 0.0 0.0-0.4 711-2) [facility]neyAutomated blood basophil count (count/volume)2020-07-17 01:10:00 Test Item Value Reference Range Interpretation Comments Basophils # (Auto) (test code = 704-7) 0.0 0.0-0.1 [facility] McKinneyFluoroscopic procedure less than one hour hnzsiapr6923-16-44 01:10:00 Test Item Value Reference Range Interpretation Comments Absolute Immature Granulocyte (auto 0 10*3/uL 0-0.1 (test code = Absolute Immature Granulocyte (auto) [facility]neyUrine color jqrrolbzwirju4392-37-78 01:10:00 Test Item Value Reference Range Interpretation Comments Urine Color (test code = 5778-6) YELLOW YELLOW [facility] McKinneyUrine cfwxwlc6611-70-60 01:10:00 Test Item Value Reference Range Interpretation Comments Urine Clarity (test code = 87540-4) CLEAR CLEAR [facility] Centerpecific gravity of Urine by Test strip 2020-07-17 01:10:00 Test Item Value Reference Range Interpretation Comments Urine Specific Wheeler (test code = 1.025 1.010-1.025 5811-5) [facility]neyUrine pH measurement by automated test cdvwn9545-38-80 01:10:00 Test Item Value Reference Range Interpretation Comments Urine pH (test code = 31742-8) 7 5-7 [facility] McKinneyUrine leukocyte esterase detection by automated test rtbrp5229-46-26 01:10:00 Test Item Value Reference Range Interpretation Comments Urine Leukocyte Esterase (test code = TRACE NEGATIVE 32623-9) [facility] McKinneyUrine nitrite detection by automated test doemg6730-57-06 01:10:00 Test Item Value Reference Range Interpretation Comments Urine Nitrite (test code = 89962-2) NEGATIVE NEGATIVE [facility] McKinneyUrine protein detection by automated test jehor5040-99-16 01:10:00 Test Item Value Reference Range Interpretation Comments Urine Protein (test code = 72872-0) NEGATIVE NEGATIVE [facility] McKinneyUrine glucose ystnivcus3917-85-04 01:10:00 Test Item Value Reference Range Interpretation Comments Urine Glucose (UA) (test code = NEGATIVE NEGATIVE 2349-9) [facility] McKinneyUrine ketones detection by automated test blexc2606-09-06 01:10:00 Test Item Value Reference Range Interpretation Comments Urine Ketones (test code = 24805-8) NEGATIVE NEGATIVE [facility] McKinneyUrine urobilinogen measurement by test strip (mass/volume)2020-07-17 01:10:00 Test Item Value Reference Range Interpretation Comments Urine Urobilinogen (test code = 0.2 mg/dL 0.2-1 23054-8) [facility]neyUrine total bilirubin measurement (mass/volume)2020-07-17 01:10:00 Test Item Value Reference Range Interpretation Comments Urine Bilirubin (test code = 1978-6) NEGATIVE NEGATIVE [facility] McKinneyUrine erythrocytes aihtnefly7982-54-60 01:10:00 Test Item Value Reference Range Interpretation Comments Urine Blood (test code = 79025-8) NEGATIVE NEGATIVE [facility] McKinneyAutomated urine sediment leukocyte count by microscopy (number/high power field)2020-07-17 01:10:00 Test Item Value Reference Range Interpretation Comments Urine WBC (test code = 5821-4) 6-10 /[HPF] 0-5 [facility] McKinneyErythrocytes detection in urine sediment by light uevouacljc7247-57-38 01:10:00 Test Item Value Reference Range Interpretation Comments Urine RBC (test code = 36577-4) 0-5 /[HPF] 0-5 [facility] McKinneyBacteria detection in urine sediment by light enjspsbdqm8242-03-23 01:10:00 Test Item Value Reference Range Interpretation Comments Urine Bacteria (test code = FEW /[HPF] NONE 26614-1) [facility] McKinneyEpithelial cells detection in urine sediment by light jfzvqnuira1592-84-46 01:10:00 Test Item Value Reference Range Interpretation Comments Urine Epithelial Cells (test code FEW /[LPF] NONE = 38113-2) [facility] Centererum or plasma sodium measurement (moles/volume)2020-07-17 01:10:00 Test Item Value Reference Range Interpretation Comments Sodium Level (test code = 2951-2) 136 mmol/L 136-145 [facility] Centererum or plasma potassium measurement (moles/volume)2020-07-17 01:10:00 Test Item Value Reference Range Interpretation Comments Potassium Level (test code = 3.9 mmol/L 3.5-5.1 2823-3) [facility] Centererum or plasma chloride measurement (moles/volume)2020-07-17 01:10:00 Test Item Value Reference Range Interpretation Comments Chloride Level (test code = 101 mmol/L 98-107 2075-0) [facility] Centererum or plasma carbon dioxide, total measurement (moles/volume)2020-07-17 01:10:00 Test Item Value Reference Range Interpretation Comments Carbon Dioxide Level (test code = 26 mmol/L 2028-04) [facility] Centererum or plasma anion szo5777-13-14 01:10:00 Test Item Value Reference Range Interpretation Comments Anion Gap (test code = 70577-4) 12.9 mmol/L -16 [facility]ererum or plasma urea nitrogen measurement (mass/volume)2020-07-17 01:10:00 Test Item Value Reference Range Interpretation Comments Blood Urea Nitrogen (test code = 11 mg/dL 03-04 3094-0) [facility]ererum or plasma creatinine measurement (mass/volume)2020-07-17 01:10:00 Test Item Value Reference Range Interpretation Comments Creatinine (test code = 2160-0) 0.99 mg/dL 0.72-1.25 [facility] Centererum or plasma urea nitrogen/creatinine mass bvtoi6280-84-77 01:10:00 Test Item Value Reference Range Interpretation Comments BUN/Creatinine Ratio (test code = 11 02-01 3097-3) [facility] McKinneyEstimated glomerular filtration rate (GFR) rmdhtkrajoqij3807-08-64 01:10:00 Test Item Value Reference Range Interpretation Comments Estimat Glomerular Filtration > 60 mL/min >60 Rate (test code = 439352922) Ranges were taken from the National Kidney Disease Education Program and the National Kidney Foundation literature.Reference ranges:60 or greater: Pnzmtx52- 59 (for 3 consecutive months): Chronic kidneydisease 15 or less: Kidney failure [facility] McKinneyGlucose xcgjlbzzspr0280-92-34 01:10:00 Test Item Value Reference Range Interpretation Comments Glucose Level (test code = HLV4811) 97 mg/dL 74-118 [facility]ererum or plasma calcium measurement (mass/volume)2020-07-17 01:10:00 Test Item Value Reference Range Interpretation Comments Calcium Level (test code = 90583-2) 8.6 mg/dL 8.4-10.2 [facility] McKinneyFluoroscopic procedure less than one hour bdigavsj5188-14-05 01:10:00 Test Item Value Reference Range Interpretation Comments Lactic Acid Level (test code = 0.9 mmol/L 0.5-2.0 Lactic Acid Level) [facility]ererum or plasma total bilirubin measurement (mass/volume)2020-07-17 01:10:00 Test Item Value Reference Range Interpretation Comments Total Bilirubin (test code = 0.3 mg/dL 0.2-1.2 1975-2) [facility] McKinneyFluoroscopic procedure less than one hour gqzumbad2377-76-80 01:10:00 Test Item Value Reference Range Interpretation Comments Aspartate Amino Transf (AST/SGOT) 24 [IU]/L 5-34 (test code = Aspartate Amino Transf (AST/SGOT)) [facility] Centererum or plasma alanine aminotransferase measurement (enzymatic activity/volume)2020-07-17 01:10:00 Test Item Value Reference Range Interpretation Comments Alanine Aminotransferase (ALT/SGPT) 12 [IU]/L 0-55 (test code = 1742-6) [facility] protein [facility] (mass/volume)2020-07-17 01:10:00 Test Item Value Reference Range Interpretation Comments Total Protein (test code = 2885-2) 7.1 g/dL 6.5-8.1 [facility] albumin measurement (mass/volume)2020-07-17 01:10:00 Test Item Value Reference Range Interpretation Comments Albumin (test code = 1751-7) 4.2 g/dL 3.5-5.0 [facility]ney[facility]asma globulin measurement (mass/volume) 2020-07-17 01:10:00 Test Item Value Reference Range Interpretation Comments Globulin (test code = 82448-1) 2.9 g/dL 2.3-3.5 [facility] albumin/globulin mass jrlao5547-37-25 01:10:00 Test Item Value Reference Range Interpretation Comments Albumin/Globulin Ratio (test code = 1.4 0.8-2.0 1759-0) [facility] alkaline phosphatase measurement (enzymatic activity/volume)2020-07-17 01:10:00 Test Item Value Reference Range Interpretation Comments Alkaline Phosphatase (test code = 51 [IU]/L 40-150 6768-6) [facility] lipase measurement (enzymatic activity/volume)2020-07-17 01:10:00 Test Item Value Reference Range Interpretation Comments Lipase (test code = 3040-3) 34 U/L 8-78 [facility]ererum heterophile antibody titer by latex eqvktsbrqfyhg0677-01-74 01:10:00 Test Item Value Reference Range Interpretation Comments Monoscreen (test code = 5215-9) NEGATIVE NEGATIVE [facility]neyHIV 1 and 2 antibody detection qualitative by rapid tqvyrzaukwp0506-35-10 01:10:00 Test Item Value Reference Range Interpretation Comments HIV (1&2) Antibody (test code = NON-REACTIVE NONREACTIVE 49572-9) [facility]neyFluoroscopic procedure less than one hour bculnwqc4328-50-67 01:10:00 Test Item Value Reference Range Interpretation Comments HIV P24 Antigen (test code = HIV NON-REACTIVE NONREACTIVE P24 Antigen) [facility]neyBlood leukocytes automated count (number/volume)2020-07-17 01:10:00 Test Item Value Reference Range Interpretation Comments White Blood Count (test code = 2.82 10*3/uL 4.8-10.8 6690-2) [facility]neyBlood erythrocytes automated count (number/volume)2020-07-17 01:10:00 Test Item Value Reference Range Interpretation Comments Red Blood Count (test code = 4.77 10*6/mL 4.3-5.7 789-8) [facility]neyBlood hemoglobin measurement (moles/volume)2020-07-17 01:10:00 Test Item Value Reference Range Interpretation Comments Hemoglobin (test code = 56320-0) 14.9 g/dL 14.0-18.0 [facility] McKinneyAutomated blood hematocrit (volume fraction)2020-07-17 01:10:00 Test Item Value Reference Range Interpretation Comments Hematocrit (test code = 4544-3) 43.7 % 38.2-49.6 [facility] McKinneyAutomated erythrocyte mean corpuscular [id number] 01:10:00 Test Item Value Reference Range Interpretation Comments Mean Corpuscular Volume (test code = 91.6 81-99 787-2) [facility] McKinneyAutomated erythrocyte mean corpuscular hemoglobin (mass per erythrocyte)2020-07-17 01:10:00 Test Item Value Reference Range Interpretation Comments Mean Corpuscular Hemoglobin (test 31.2 pg 28-32 code = 785-6) [facility] McKinneyAutomated erythrocyte mean corpuscular hemoglobin concentration measurement (mass/volume)2020-07-17 01:10:00 Test Item Value Reference Range Interpretation Comments Mean Corpuscular Hemoglobin Concent 34.1 g/dL 31-35 (test code = 786-4) [facility] McKinneyRDW AsbEu-Ind0748-60-08 01:10:00 Test Item Value Reference Range Interpretation Comments Red Cell Distribution Width (test code 11.7 % 11.7-14.4 = 04416-2) [facility] McKinneyAutomated blood platelet count (count/volume)2020-07-17 01:10:00 Test Item Value Reference Range Interpretation Comments Platelet Count (test code = 777-3) 96 10*3/uL 140-360 [facility] McKinneyAutomated blood segmented neutrophil count as percentage of total sfztxeppaw6799-12-08 01:10:00 Test Item Value Reference Range Interpretation Comments Neutrophils (%) (Auto) (test code = 51.1 % 38.7-80.0 79581-9) [facility] McKinneyAutomated blood lymphocyte count as percentage ot total grhoaxtkqi4044-17-99 01:10:00 Test Item Value Reference Range Interpretation Comments Lymphocytes (%) (Auto) (test code = 37.9 % 18.0-39.1 736-9) [facility] McKinneyAutomated blood monocyte count as percentage of total tmcwimvsxt7071-15-44 01:10:00 Test Item Value Reference Range Interpretation Comments Monocytes (%) (Auto) (test code = 11.0 % 4.4-11.3 5905-5) [facility] McKinneyAutomated blood eosinophil count as percentage of total zzhilapvyz3436-38-45 01:10:00 Test Item Value Reference Range Interpretation Comments Eosinophils (%) (Auto) (test code = 0.0 % 0.0-6.0 713-8) [facility] McKinneyAutomated blood basophil count as percentage of total wlukluolth8677-02-48 01:10:00 Test Item Value Reference Range Interpretation Comments Basophils (%) (Auto) (test code = 0.0 % 0.0-1.0 706-2) [facility] McKinneyFluoroscopic procedure less than one hour quzxpres2530-96-09 01:10:00 Test Item Value Reference Range Interpretation Comments IM GRANULOCYTES % (test code = IM 0.0 % 0.0-1.0 GRANULOCYTES %) [facility] McKinneyAutomated blood neutrophil count 2020-07-17 01:10:00 Test Item Value Reference Range Interpretation Comments Neutrophils # (Auto) (test code = 1.4 2.1-6.9 751-8) [facility]neyBlood lymphocytes count (number/volume) 2020-07-17 01:10:00 Test Item Value Reference Range Interpretation Comments Lymphocytes # (Auto) (test code = 1.1 1.0-3.2 28253-6) [facility]Bl[facility] monocytes automated count (number/volume)2020-07-17 01:10:00 Test Item Value Reference Range Interpretation Comments Monocytes # (Auto) (test code = 742-7) 0.3 0.2-0.8 [facility] McKinneyAutomated blood eosinophil count 2020-07-17 01:10:00 Test Item Value Reference Range Interpretation Comments Eosinophils # (Auto) (test code = 0.0 0.0-0.4 711-2) [facility] McKinneyAutomated blood basophil count (count/volume)2020-07-17 01:10:00 Test Item Value Reference Range Interpretation Comments Basophils # (Auto) (test code = 704-7) 0.0 0.0-0.1 [facility] McKinneyFluoroscopic procedure less than one hour petthfgu5484-83-76 01:10:00 Test Item Value Reference Range Interpretation Comments Absolute Immature Granulocyte (auto 0 10*3/uL 0-0.1 (test code = Absolute Immature Granulocyte (auto) [facility]neyUrine color rowlfrspkcxrh3553-50-02 01:10:00 Test Item Value Reference Range Interpretation Comments Urine Color (test code = 5778-6) YELLOW YELLOW [facility] McKinneyUrine tnismyb0125-03-06 01:10:00 Test Item Value Reference Range Interpretation Comments Urine Clarity (test code = 53304-1) CLEAR CLEAR [facility] Centerpecific gravity of Urine by Test strip 2020-07-17 01:10:00 Test Item Value Reference Range Interpretation Comments Urine Specific Wheeler (test code = 1.025 1.010-1.025 5811-5) [facility]neyUrine pH measurement by automated test [id number] 01:10:00 Test Item Value Reference Range Interpretation Comments Urine pH (test code = 68105-4) 7 5-7 [facility] McKinneyUrine leukocyte esterase detection by automated test vtrwv9065-08-45 01:10:00 Test Item Value Reference Range Interpretation Comments Urine Leukocyte Esterase (test code = TRACE NEGATIVE 03033-3) [facility] McKinneyUrine nitrite detection by automated test ijaih2530-27-31 01:10:00 Test Item Value Reference Range Interpretation Comments Urine Nitrite (test code = 22153-3) NEGATIVE NEGATIVE [facility] McKinneyUrine protein detection by automated test bhmqr3274-36-70 01:10:00 Test Item Value Reference Range Interpretation Comments Urine Protein (test code = 18685-5) NEGATIVE NEGATIVE [facility] McKinneyUrine glucose ydzelmxec8155-00-36 01:10:00 Test Item Value Reference Range Interpretation Comments Urine Glucose (UA) (test code = NEGATIVE NEGATIVE 2349-9) [facility] McKinneyUrine ketones detection by automated test lxepe1379-30-82 01:10:00 Test Item Value Reference Range Interpretation Comments Urine Ketones (test code = 20648-0) NEGATIVE NEGATIVE [facility] McKinneyUrine urobilinogen measurement by test strip (mass/volume)2020-07-17 01:10:00 Test Item Value Reference Range Interpretation Comments Urine Urobilinogen (test code = 0.2 mg/dL 0.2-1 80742-3) [facility]neyUrine total bilirubin measurement (mass/volume)2020-07-17 01:10:00 Test Item Value Reference Range Interpretation Comments Urine Bilirubin (test code = 1978-6) NEGATIVE NEGATIVE [facility] McKinneyUrine erythrocytes frjwqyrkf2600-09-34 01:10:00 Test Item Value Reference Range Interpretation Comments Urine Blood (test code = 65246-8) NEGATIVE NEGATIVE [facility] McKinneyAutomated urine sediment leukocyte count by microscopy (number/high power field)2020-07-17 01:10:00 Test Item Value Reference Range Interpretation Comments Urine WBC (test code = 5821-4) 6-10 /[HPF] 0-5 [facility] McKinneyErythrocytes detection in urine sediment by light qvthziqazh8497-87-36 01:10:00 Test Item Value Reference Range Interpretation Comments Urine RBC (test code = 33037-3) 0-5 /[HPF] 0-5 [facility] McKinneyBacteria detection in urine sediment by light nfvxfyapgq7633-15-79 01:10:00 Test Item Value Reference Range Interpretation Comments Urine Bacteria (test code = FEW /[HPF] NONE 21122-7) [facility] McKinneyEpithelial cells detection in urine sediment by light bcircdgral7002-98-48 01:10:00 Test Item Value Reference Range Interpretation Comments Urine Epithelial Cells (test code FEW /[LPF] NONE = 77839-1) [facility] sodium measurement (moles/volume)2020-07-17 01:10:00 Test Item Value Reference Range Interpretation Comments Sodium Level (test code = 2951-2) 136 mmol/L 136-145 [facility] plasma potassium measurement (moles/volume)2020-07-17 01:10:00 Test Item Value Reference Range Interpretation Comments Potassium Level (test code = 3.9 mmol/L 3.5-5.1 2823-3) [facility] plasma chloride measurement (moles/volume)2020-07-17 01:10:00 Test Item Value Reference Range Interpretation Comments Chloride Level (test code = 101 mmol/L 98-107 5-0) [facility] plasma carbon dioxide, total measurement (moles/volume)2020-07-17 01:10:00 Test Item Value Reference Range Interpretation Comments Carbon Dioxide Level (test code = 26 mmol/L 2028-04) [facility]ere[facility] or plasma anion est3347-29-68 01:10:00 Test Item Value Reference Range Interpretation Comments Anion Gap (test code = 13469-6) 12.9 mmol/L 8-16 [facility]ererum or plasma urea nitrogen measurement (mass/volume)2020-07-17 01:10:00 Test Item Value Reference Range Interpretation Comments Blood Urea Nitrogen (test code = 11 mg/dL 03-04 3094-0) [facility] creatinine measurement (mass/volume)2020-07-17 01:10:00 Test Item Value Reference Range Interpretation Comments Creatinine (test code = 2160-0) 0.99 mg/dL 0.72-1.25 [facility]ererum or plasma urea nitrogen/creatinine mass [id number] 01:10:00 Test Item Value Reference Range Interpretation Comments BUN/Creatinine Ratio (test code = 11 02-01 3097-3) [facility] McKinneyEstimated glomerular filtration rate (GFR) xtdzbjveijpsk7957-68-17 01:10:00 Test Item Value Reference Range Interpretation Comments Estimat Glomerular Filtration > 60 mL/min >60 Rate (test code = 319210396) Ranges were taken from the National Kidney Disease Education Program and the National Kid[employer] Foundation literature.Reference ranges:60 or greater: Ewsatr57- 59 (for 3 consecutive months): Chronic kidneydisease 15 or less: Kidney failure [facility] McKinneyGlucose qlakowogtzt3861-28-63 01:10:00 Test Item Value Reference Range Interpretation Comments Glucose Level (test code = JFK3310) 97 mg/dL 74-118 [facility] plasma calcium measurement (mass/volume)2020-07-17 01:10:00 Test Item Value Reference Range Interpretation Comments Calcium Level (test code = 05658-6) 8.6 mg/dL 8.4-10.2 [facility] McKinneyFluoroscopic procedure less than one hour jtxjrizq9706-31-50 01:10:00 Test Item Value Reference Range Interpretation Comments Lactic Acid Level (test code = 0.9 mmol/L 0.5-2.0 Lactic Acid Level) [facility] total bilirubin measurement (mass/volume)2020-07-17 01:10:00 Test Item Value Reference Range Interpretation Comments Total Bilirubin (test code = 0.3 mg/dL 0.2-1.2 1975-2) [facility] McKinneyFluoroscopic procedure less than one hour ztxcadbv0294-82-96 01:10:00 Test Item Value Reference Range Interpretation Comments Aspartate Amino Transf (AST/SGOT) 24 [IU]/L 5-34 (test code = Aspartate Amino Transf (AST/SGOT)) [facility] alanine aminotransferase measurement (enzymatic activity/volume)2020-07-17 01:10:00 Test Item Value Reference Range Interpretation Comments Alanine Aminotransferase (ALT/SGPT) 12 [IU]/L 0-55 (test code = 1742-6) [facility] protein measurement (mass/volume)2020-07-17 01:10:00 Test Item Value Reference Range Interpretation Comments Total Protein (test code = 2885-2) 7.1 g/dL 6.5-8.1 [facility] or plasma albumin measurement (mass/volume)2020-07-17 01:10:00 Test Item Value Reference Range Interpretation Comments Albumin (test code = 1751-7) 4.2 g/dL 3.5-5.0 [facility] McKinneyPlasma globulin measurement (mass/volume) 2020-07-17 01:10:00 Test Item Value Reference Range Interpretation Comments Globulin (test code = 31471-9) 2.9 g/dL 2.3-3.5 [facility] or plasma albumin/globulin mass udsov7535-83-55 01:10:00 Test Item Value Reference Range Interpretation Comments Albumin/Globulin Ratio (test code = 1.4 0.8-2.0 1759-0) [facility] alkaline phosphatase measurement (enzymatic activity/volume)2020-07-17 01:10:00 Test Item Value Reference Range Interpretation Comments Alkaline Phosphatase (test code = 51 [IU]/L 40-150 6768-6) [facility] plasma lipase measurement (enzymatic activity/volume)2020-07-17 01:10:00 Test Item Value Reference Range Interpretation Comments Lipase (test code = 3040-3) 34 U/L 8-78 [facility]ererum heterophile antibody titer by latex cmovuarrhmisb8349-44-57 01:10:00 Test Item Value Reference Range Interpretation Comments Monoscreen (test code = 5215-9) NEGATIVE NEGATIVE [facility] McKinneyHIV 1 and 2 antibody detection qualitative by rapid vdnndwazevn2719-34-20 01:10:00 Test Item Value Reference Range Interpretation Comments HIV (1&2) Antibody (test code = NON-REACTIVE NONREACTIVE 00003-2) [facility] McKinneyFluoroscopic procedure less than one hour ggbmqkhp7936-28-76 01:10:00 Test Item Value Reference Range Interpretation Comments HIV P24 Antigen (test code = HIV NON-REACTIVE NONREACTIVE P24 Antigen) [facility] McKinneyBlood vlvxxrq4560-55-42 01:10:00 Test Item Value Reference Range Interpretation Comments Blood Culture (test NO GROWTH AFTER 5 code = 51513847) DAYS, FINAL REPORT [facility] leukocytes automated count (number/volume)2020-07-17 01:10:00 Test Item Value Reference Range Interpretation Comments White Blood Count (test code = 2.82 10*3/uL 4.8-10.8 6690-2) [facility] erythrocytes automated count (number/volume)2020-07-17 01:10:00 Test Item Value Reference Range Interpretation Comments Red Blood Count (test code = 4.77 10*6/mL 4.3-5.7 789-8) [facility] McKinneyBlood hemoglobin measurement (moles/volume)2020-07-17 01:10:00 Test Item Value Reference Range Interpretation Comments Hemoglobin (test code = 81219-8) 14.9 g/dL 14.0-18.0 [facility] McKinneyAutomated blood hematocrit (volume fraction)2020-07-17 01:10:00 Test Item Value Reference Range Interpretation Comments Hematocrit (test code = 4544-3) 43.7 % 38.2-49.6 [facility] McKinneyAutomated erythrocyte mean corpuscular prwmdg7200-63-91 01:10:00 Test Item Value Reference Range Interpretation Comments Mean Corpuscular Volume (test code = 91.6 81-99 787-2) [facility] McKinneyAutomated erythrocyte mean corpuscular hemoglobin (mass per erythrocyte)2020-07-17 01:10:00 Test Item Value Reference Range Interpretation Comments Mean Corpuscular Hemoglobin (test 31.2 pg 28-32 code = 785-6) [facility] McKinneyAutomated erythrocyte mean corpuscular hemoglobin concentration measurement (mass/volume)2020-07-17 01:10:00 Test Item Value Reference Range Interpretation Comments Mean Corpuscular Hemoglobin Concent 34.1 g/dL 31-35 (test code = 786-4) [facility] McKinneyRDW IdpQg-Jsd2100-84-08 01:10:00 Test Item Value Reference Range Interpretation Comments Red Cell Distribution Width (test code 11.7 % 11.7-14.4 = 16450-8) [facility] McKinneyAutomated blood platelet count (count/volume)2020-07-17 01:10:00 Test Item Value Reference Range Interpretation Comments Platelet Count (test code = 777-3) 96 10*3/uL 140-360 [facility] McKinneyAutomated blood segmented neutrophil count as percentage of total honkmejhjq8699-57-89 01:10:00 Test Item Value Reference Range Interpretation Comments Neutrophils (%) (Auto) (test code = 51.1 % 38.7-80.0 68190-8) [facility] McKinneyAutomated blood lymphocyte count as percentage ot total jrgrapkvlo1968-84-53 01:10:00 Test Item Value Reference Range Interpretation Comments Lymphocytes (%) (Auto) (test code = 37.9 % 18.0-39.1 736-9) [facility] McKinneyAutomated blood monocyte count as percentage of total erklrvowva6321-09-61 01:10:00 Test Item Value Reference Range Interpretation Comments Monocytes (%) (Auto) (test code = 11.0 % 4.4-11.3 5905-5) [facility] McKinneyAutomated blood eosinophil count as percentage of total mtpwhholtp2808-64-95 01:10:00 Test Item Value Reference Range Interpretation Comments Eosinophils (%) (Auto) (test code = 0.0 % 0.0-6.0 713-8) [facility] McKinneyAutomated blood basophil count as percentage of total rrdueeoeai9232-87-92 01:10:00 Test Item Value Reference Range Interpretation Comments Basophils (%) (Auto) (test code = 0.0 % 0.0-1.0 706-2) [facility] McKinneyFluoroscopic procedure less than one hour xwgwjqul2848-68-65 01:10:00 Test Item Value Reference Range Interpretation Comments IM GRANULOCYTES % (test code = IM 0.0 % 0.0-1.0 GRANULOCYTES %) [facility] McKinneyAutomated blood neutrophil count 2020-07-17 01:10:00 Test Item Value Reference Range Interpretation Comments Neutrophils # (Auto) (test code = 1.4 2.1-6.9 751-8) [facility] McKinneyBlood lymphocytes count (number/volume) 2020-07-17 01:10:00 Test Item Value Reference Range Interpretation Comments Lymphocytes # (Auto) (test code = 1.1 1.0-3.2 97984-5) [facility] McKinneyBlood monocytes automated count (number/volume)2020-07-17 01:10:00 Test Item Value Reference Range Interpretation Comments Monocytes # (Auto) (test code = 742-7) 0.3 0.2-0.8 [facility] McKinneyAutomated blood eosinophil count 2020-07-17 01:10:00 Test Item Value Reference Range Interpretation Comments Eosinophils # (Auto) (test code = 0.0 0.0-0.4 711-2) [facility] McKinneyAutomated blood basophil count (count/volume)2020-07-17 01:10:00 Test Item Value Reference Range Interpretation Comments Basophils # (Auto) (test code = 704-7) 0.0 0.0-0.1 [facility] McKinneyFluoroscopic procedure less than one hour dpnromzs0587-65-24 01:10:00 Test Item Value Reference Range Interpretation Comments Absolute Immature Granulocyte (auto 0 10*3/uL 0-0.1 (test code = Absolute Immature Granulocyte (auto) [facility] McKinneyUrine color zpgwqnbcdulxe3396-00-48 01:10:00 Test Item Value Reference Range Interpretation Comments Urine Color (test code = 5778-6) YELLOW YELLOW [facility] McKinneyUrine yxjydzw5873-16-49 01:10:00 Test Item Value Reference Range Interpretation Comments Urine Clarity (test code = 39971-8) CLEAR CLEAR [facility]pecific [facility] Urine by Test strip 2020-07-17 01:10:00 Test Item Value Reference Range Interpretation Comments Urine Specific Wheeler (test code = 1.025 1.010-1.025 5811-5) [facility] McKinneyUrine pH measurement by automated test [id number] 01:10:00 Test Item Value Reference Range Interpretation Comments Urine pH (test code = 63177-0) 7 5-7 [facility] McKinneyUrine leukocyte esterase detection by automated test hiwja8207-66-29 01:10:00 Test Item Value Reference Range Interpretation Comments Urine Leukocyte Esterase (test code = TRACE NEGATIVE 84283-2) [facility] McKinneyUrine nitrite detection by automated test lqqed6901-79-36 01:10:00 Test Item Value Reference Range Interpretation Comments Urine Nitrite (test code = 70303-7) NEGATIVE NEGATIVE [facility] McKinneyUrine protein detection by automated test ccecz6877-75-19 01:10:00 Test Item Value Reference Range Interpretation Comments Urine Protein (test code = 18383-0) NEGATIVE NEGATIVE [facility] McKinneyUrine glucose umgawqiik8376-48-51 01:10:00 Test Item Value Reference Range Interpretation Comments Urine Glucose (UA) (test code = NEGATIVE NEGATIVE 2349-9) [facility] McKinneyUrine ketones detection by automated test doaie7722-68-83 01:10:00 Test Item Value Reference Range Interpretation Comments Urine Ketones (test code = 04602-4) NEGATIVE NEGATIVE [facility] McKinneyUrine urobilinogen measurement by test strip (mass/volume)2020-07-17 01:10:00 Test Item Value Reference Range Interpretation Comments Urine Urobilinogen (test code = 0.2 mg/dL 0.2-1 19657-8) [facility]neyUrine total bilirubin measurement (mass/volume)2020-07-17 01:10:00 Test Item Value Reference Range Interpretation Comments Urine Bilirubin (test code = 1978-6) NEGATIVE NEGATIVE [facility] McKinneyUrine erythrocytes uifcvzqmk9835-04-57 01:10:00 Test Item Value Reference Range Interpretation Comments Urine Blood (test code = 73192-7) NEGATIVE NEGATIVE [facility] McKinneyAutomated urine sediment leukocyte count by microscopy (number/high power field)2020-07-17 01:10:00 Test Item Value Reference Range Interpretation Comments Urine WBC (test code = 5821-4) 6-10 /[HPF] 0-5 [facility] McKinneyErythrocytes detection in urine sediment by light qgzekngbpk6976-27-42 01:10:00 Test Item Value Reference Range Interpretation Comments Urine RBC (test code = 80147-7) 0-5 /[HPF] 0-5 [facility]neyBacteria detection in urine sediment by light [id number] 01:10:00 Test Item Value Reference Range Interpretation Comments Urine Bacteria (test code = FEW /[HPF] NONE 83369-1) [facility] McKinneyEpithelial cells detection in urine sediment by light [id number] 01:10:00 Test Item Value Reference Range Interpretation Comments Urine Epithelial Cells (test code FEW /[LPF] NONE = 31944-2) [facility] sodium [facility] (moles/volume)2020-07-17 01:10:00 Test Item Value Reference Range Interpretation Comments Sodium Level (test code = 2951-2) 136 mmol/L 136-145 [facility] potassium measurement (moles/volume)2020-07-17 01:10:00 Test Item Value Reference Range Interpretation Comments Potassium Level (test code = 3.9 mmol/L 3.5-5.1 2823-3) [facility] chloride measurement (moles/volume)2020-07-17 01:10:00 Test Item Value Reference Range Interpretation Comments Chloride Level (test code = 101 mmol/L 98-107 2075-0) [facility] carbon dioxide, total measurement (moles/volume)2020-07-17 01:10:00 Test Item Value Reference Range Interpretation Comments Carbon Dioxide Level (test code = 26 mmol/L 2027-) [facility] anion [id number] 01:10:00 Test Item Value Reference Range Interpretation Comments Anion Gap (test code = 27611-2) 12.9 mmol/L -16 [facility] urea nitrogen measurement (mass/volume)2020-07-17 01:10:00 Test Item Value Reference Range Interpretation Comments Blood Urea Nitrogen (test code = 11 mg/dL 03-04 3094-0) [facility] creatinine measurement (mass/volume)2020-07-17 01:10:00 Test Item Value Reference Range Interpretation Comments Creatinine (test code = 2160-0) 0.99 mg/dL 0.72-1.25 [facility]ere[facility] urea nitrogen/creatinine mass [id number] 01:10:00 Test Item Value Reference Range Interpretation Comments BUN/Creatinine Ratio (test code = 11 6-25 3097-3) [facility] McKinneyEstimated glomerular filtration rate (GFR) wbiqmqcyhbuyt5886-84-19 01:10:00 Test Item Value Reference Range Interpretation Comments Estimat Glomerular Filtration > 60 mL/min >60 Rate (test code = 183854677) Ranges were taken from the National Kidney Disease Education Program and the National Kidney Foundation literature.Reference ranges:60 or greater: Ljuhnn99- 59 (for 3 consecutive months): Chronic kidneydisease 15 or less: Kidney failure [facility]neyGlucose wazyqvtjfsv1489-00-10 01:10:00 Test Item Value Reference Range Interpretation Comments Glucose Level (test code = MZQ6521) 97 mg/dL 74-118 [facility] calcium measurement (mass/volume)2020-07-17 01:10:00 Test Item Value Reference Range Interpretation Comments Calcium Level (test code = 35513-4) 8.6 mg/dL 8.4-10.2 [facility] McKinneyFluoroscopic procedure less than one hour qfmxwcjx2238-84-23 01:10:00 Test Item Value Reference Range Interpretation Comments Lactic Acid Level (test code = 0.9 mmol/L 0.5-2.0 Lactic Acid Level) [facility]ere[facility] plasma total bilirubin measurement (mass/volume)2020-07-17 01:10:00 Test Item Value Reference Range Interpretation Comments Total Bilirubin (test code = 0.3 mg/dL 0.2-1.2 1975-2) [facility] McKinneyFluoroscopic procedure less than one hour seqngoma6930-36-98 01:10:00 Test Item Value Reference Range Interpretation Comments Aspartate Amino Transf (AST/SGOT) 24 [IU]/L 5-34 (test code = Aspartate Amino Transf (AST/SGOT)) [facility] alanine aminotransferase measurement (enzymatic activity/volume)2020-07-17 01:10:00 Test Item Value Reference Range Interpretation Comments Alanine Aminotransferase (ALT/SGPT) 12 [IU]/L 0-55 (test code = 1742-6) [facility] protein measurement (mass/volume)2020-07-17 01:10:00 Test Item Value Reference Range Interpretation Comments Total Protein (test code = 2885-2) 7.1 g/dL 6.5-8.1 [facility]ere[facility] albumin measurement (mass/volume)2020-07-17 01:10:00 Test Item Value Reference Range Interpretation Comments Albumin (test code = 1751-7) 4.2 g/dL 3.5-5.0 [facility]neyPlasma globulin measurement (mass/volume) 2020-07-17 01:10:00 Test Item Value Reference Range Interpretation Comments Globulin (test code = 34310-8) 2.9 g/dL 2.3-3.5 [facility] albumin/globulin mass qarbt3279-85-17 01:10:00 Test Item Value Reference Range Interpretation Comments Albumin/Globulin Ratio (test code = 1.4 0.8-2.0 1759-0) [facility] alkaline phosphatase measurement (enzymatic activity/volume)2020-07-17 01:10:00 Test Item Value Reference Range Interpretation Comments Alkaline Phosphatase (test code = 51 [IU]/L 40-150 6768-6) [facility] lipase measurement (enzymatic activity/volume)2020-07-17 01:10:00 Test Item Value Reference Range Interpretation Comments Lipase (test code = 3040-3) 34 U/L 8-78 [facility]ererum heterophile antibody titer by latex jqahpajacvfwi3778-41-42 01:10:00 Test Item Value Reference Range Interpretation Comments Monoscreen (test code = 5215-9) NEGATIVE NEGATIVE [facility] McKinneyHIV 1 and 2 antibody detection qualitative by rapid aernssgkwfs8529-97-39 01:10:00 Test Item Value Reference Range Interpretation Comments HIV (1&2) Antibody (test code = NON-REACTIVE NONREACTIVE 00277-9) [facility]neyFluoroscopic procedure less than one hour xlsnqlae9205-56-78 01:10:00 Test Item Value Reference Range Interpretation Comments HIV P24 Antigen (test code = HIV NON-REACTIVE NONREACTIVE P24 Antigen) [facility]neyBlood ufwkoxq7822-65-95 01:10:00 Test Item Value Reference Range Interpretation Comments Blood Culture (test NO GROWTH AFTER 5 code = 72711076) DAYS, FINAL REPORT [facility]Bl[facility] leukocytes automated count (number/volume)2020-07-17 01:10:00 Test Item Value Reference Range Interpretation Comments White Blood Count (test code = 2.82 10*3/uL 4.8-10.8 6690-2) [facility]neyBlper[facility] erythrocytes automated count (number/volume)2020-07-17 01:10:00 Test Item Value Reference Range Interpretation Comments Red Blood Count (test code = 4.77 10*6/mL 4.3-5.7 789-8) [facility]neyBlood hemoglobin measurement (moles/volume)2020-07-17 01:10:00 Test Item Value Reference Range Interpretation Comments Hemoglobin (test code = 07479-5) 14.9 g/dL 14.0-18.0 [facility] McKinneyAutomated blood hematocrit (volume fraction)2020-07-17 01:10:00 Test Item Value Reference Range Interpretation Comments Hematocrit (test code = 4544-3) 43.7 % 38.2-49.6 [facility] McKinneyAutomated erythrocyte mean corpuscular yetbfu7728-33-11 01:10:00 Test Item Value Reference Range Interpretation Comments Mean Corpuscular Volume (test code = 91.6 81-99 787-2) [facility] McKinneyAutomated erythrocyte mean corpuscular hemoglobin (mass per erythrocyte)2020-07-17 01:10:00 Test Item Value Reference Range Interpretation Comments Mean Corpuscular Hemoglobin (test 31.2 pg 28-32 code = 785-6) [facility] McKinneyAutomated erythrocyte mean corpuscular hemoglobin concentration measurement (mass/volume)2020-07-17 01:10:00 Test Item Value Reference Range Interpretation Comments Mean Corpuscular Hemoglobin Concent 34.1 g/dL 31-35 (test code = 786-4) [facility] McKinneyRDW TvxUi-Yfy9401-69-08 01:10:00 Test Item Value Reference Range Interpretation Comments Red Cell Distribution Width (test code 11.7 % 11.7-14.4 = 96672-0) [facility] McKinneyAutomated blood platelet count (count/volume)2020-07-17 01:10:00 Test Item Value Reference Range Interpretation Comments Platelet Count (test code = 777-3) 96 10*3/uL 140-360 [facility] McKinneyAutomated blood segmented neutrophil count as percentage of total jejchzcpns1453-82-02 01:10:00 Test Item Value Reference Range Interpretation Comments Neutrophils (%) (Auto) (test code = 51.1 % 38.7-80.0 58952-9) [facility] McKinneyAutomated blood lymphocyte count as percentage ot total iejjhrezud2377-71-21 01:10:00 Test Item Value Reference Range Interpretation Comments Lymphocytes (%) (Auto) (test code = 37.9 % 18.0-39.1 736-9) [facility] McKinneyAutomated blood monocyte count as percentage of total ceixnnoyxi2699-77-72 01:10:00 Test Item Value Reference Range Interpretation Comments Monocytes (%) (Auto) (test code = 11.0 % 4.4-11.3 5905-5) [facility] McKinneyAutomated blood eosinophil count as percentage of total zhugnctgdd6710-03-25 01:10:00 Test Item Value Reference Range Interpretation Comments Eosinophils (%) (Auto) (test code = 0.0 % 0.0-6.0 713-8) [facility] McKinneyAutomated blood basophil count as percentage of total omlawgnesj1626-63-74 01:10:00 Test Item Value Reference Range Interpretation Comments Basophils (%) (Auto) (test code = 0.0 % 0.0-1.0 706-2) [facility] McKinneyFluoroscopic procedure less than one hour mvzpdenj5216-68-30 01:10:00 Test Item Value Reference Range Interpretation Comments IM GRANULOCYTES % (test code = IM 0.0 % 0.0-1.0 GRANULOCYTES %) [facility] McKinneyAutomated blood neutrophil count 2020-07-17 01:10:00 Test Item Value Reference Range Interpretation Comments Neutrophils # (Auto) (test code = 1.4 2.1-6.9 751-8) [facility]neyBlood lymphocytes count (number/volume) 2020-07-17 01:10:00 Test Item Value Reference Range Interpretation Comments Lymphocytes # (Auto) (test code = 1.1 1.0-3.2 48909-6) [facility] McKinneyBlood monocytes automated count (number/volume)2020-07-17 01:10:00 Test Item Value Reference Range Interpretation Comments Monocytes # (Auto) (test code = 742-7) 0.3 0.2-0.8 [facility] McKinneyAutomated blood eosinophil count 2020-07-17 01:10:00 Test Item Value Reference Range Interpretation Comments Eosinophils # (Auto) (test code = 0.0 0.0-0.4 711-2) [facility]neyAutomated blood basophil count (count/volume)2020-07-17 01:10:00 Test Item Value Reference Range Interpretation Comments Basophils # (Auto) (test code = 704-7) 0.0 0.0-0.1 [facility] McKinneyFluoroscopic procedure less than one hour ntdyztkg4739-44-38 01:10:00 Test Item Value Reference Range Interpretation Comments Absolute Immature Granulocyte (auto 0 10*3/uL 0-0.1 (test code = Absolute Immature Granulocyte (auto) [facility] McKinneyUrine color dvasqizixkmln6535-18-22 01:10:00 Test Item Value Reference Range Interpretation Comments Urine Color (test code = 5778-6) YELLOW YELLOW [facility] McKinneyUrine jhhzrau4070-13-20 01:10:00 Test Item Value Reference Range Interpretation Comments Urine Clarity (test code = 20803-4) CLEAR CLEAR [facility] Centerpecific gravity of Urine by Test strip 2020-07-17 01:10:00 Test Item Value Reference Range Interpretation Comments Urine Specific Wheeler (test code = 1.025 1.010-1.025 5811-5) [facility]neyUrine pH measurement by automated test [id number] 01:10:00 Test Item Value Reference Range Interpretation Comments Urine pH (test code = 28203-2) 7 5-7 [facility] McKinneyUrine leukocyte esterase detection by automated test jpbwr6924-27-97 01:10:00 Test Item Value Reference Range Interpretation Comments Urine Leukocyte Esterase (test code = TRACE NEGATIVE 58758-0) [facility] McKinneyUrine nitrite detection by automated test zilfi9190-12-67 01:10:00 Test Item Value Reference Range Interpretation Comments Urine Nitrite (test code = 85152-4) NEGATIVE NEGATIVE [facility]neyUrine protein detection by automated test iqwbo7724-20-09 01:10:00 Test Item Value Reference Range Interpretation Comments Urine Protein (test code = 84039-1) NEGATIVE NEGATIVE [facility] McKinneyUrine glucose dxvfumdsr6463-94-95 01:10:00 Test Item Value Reference Range Interpretation Comments Urine Glucose (UA) (test code = NEGATIVE NEGATIVE 2349-9) [facility]neyUrine ketones detection by automated test qwoox1278-02-93 01:10:00 Test Item Value Reference Range Interpretation Comments Urine Ketones (test code = 19033-5) NEGATIVE NEGATIVE [facility] McKinneyUrine urobilinogen measurement by test strip (mass/volume)2020-07-17 01:10:00 Test Item Value Reference Range Interpretation Comments Urine Urobilinogen (test code = 0.2 mg/dL 0.2-1 67049-6) [facility]neyUrine total bilirubin measurement (mass/volume)2020-07-17 01:10:00 Test Item Value Reference Range Interpretation Comments Urine Bilirubin (test code = 1978-6) NEGATIVE NEGATIVE [facility] McKinneyUrine erythrocytes yoxdipnkz2275-00-66 01:10:00 Test Item Value Reference Range Interpretation Comments Urine Blood (test code = 35539-8) NEGATIVE NEGATIVE [facility] McKinneyAutomated urine sediment leukocyte count by microscopy (number/high power field)2020-07-17 01:10:00 Test Item Value Reference Range Interpretation Comments Urine WBC (test code = 5821-4) 6-10 /[HPF] 0-5 [facility] McKinneyErythrocytes detection in urine sediment by light eaokchlywj6979-95-88 01:10:00 Test Item Value Reference Range Interpretation Comments Urine RBC (test code = 12296-2) 0-5 /[HPF] 0-5 [facility] McKinneyBacteria detection in urine sediment by light rptbpyuicp2045-50-56 01:10:00 Test Item Value Reference Range Interpretation Comments Urine Bacteria (test code = FEW /[HPF] NONE 22982-4) [facility] McKinneyEpithelial cells detection in urine sediment by light zmshldhiop3136-55-58 01:10:00 Test Item Value Reference Range Interpretation Comments Urine Epithelial Cells (test code FEW /[LPF] NONE = 02757-4) [facility] sodium measurement (moles/volume)2020-07-17 01:10:00 Test Item Value Reference Range Interpretation Comments Sodium Level (test code = 2951-2) 136 mmol/L 136-145 [facility]ere[facility] plasma potassium measurement (moles/volume)2020-07-17 01:10:00 Test Item Value Reference Range Interpretation Comments Potassium Level (test code = 3.9 mmol/L 3.5-5.1 2823-3) [facility]ere[facility] chloride measurement (moles/volume)2020-07-17 01:10:00 Test Item Value Reference Range Interpretation Comments Chloride Level (test code = 101 mmol/L 98-107 2075-0) [facility]ererum or plasma carbon dioxide, total measurement (moles/volume)2020-07-17 01:10:00 Test Item Value Reference Range Interpretation Comments Carbon Dioxide Level (test code = 26 mmol/L 2028-04) [facility]ererum or plasma anion [id number] 01:10:00 Test Item Value Reference Range Interpretation Comments Anion Gap (test code = 66785-8) 12.9 mmol/L 8-16 [facility]ererum or plasma urea nitrogen measurement (mass/volume)2020-07-17 01:10:00 Test Item Value Reference Range Interpretation Comments Blood Urea Nitrogen (test code = 11 mg/dL 03-04 3094-0) [facility]ere[facility] creatinine measurement (mass/volume)2020-07-17 01:10:00 Test Item Value Reference Range Interpretation Comments Creatinine (test code = 2160-0) 0.99 mg/dL 0.72-1.25 [facility]ererum or plasma urea nitrogen/creatinine mass ubape6295-27-94 01:10:00 Test Item Value Reference Range Interpretation Comments BUN/Creatinine Ratio (test code = 11 625 3097-3) [facility] McKinneyEstimated glomerular filtration rate (GFR) sglfihzzulsnp5660-15-48 01:10:00 Test Item Value Reference Range Interpretation Comments Estimat Glomerular Filtration > 60 mL/min >60 Rate (test code = 694511102) Ranges were taken from the National Kidney Disease Education Program and the National Kidney Foundation literature.Reference ranges:60 or greater: Iminlp46- 59 (for 3 consecutive months): Chronic kidneydisease 15 or less: Kidney failure [facility] McKinneyGlucose uaghlojidnw1783-81-89 01:10:00 Test Item Value Reference Range Interpretation Comments Glucose Level (test code = OVI6809) 97 mg/dL 74-118 [facility] plasma calcium measurement (mass/volume)2020-07-17 01:10:00 Test Item Value Reference Range Interpretation Comments Calcium Level (test code = 01078-0) 8.6 mg/dL 8.4-10.2 [facility] McKinneyFluoroscopic procedure less than one hour cflrbrvl2466-20-62 01:10:00 Test Item Value Reference Range Interpretation Comments Lactic Acid Level (test code = 0.9 mmol/L 0.5-2.0 Lactic Acid Level) [facility]ere[facility] plasma total bilirubin measurement (mass/volume)2020-07-17 01:10:00 Test Item Value Reference Range Interpretation Comments Total Bilirubin (test code = 0.3 mg/dL 0.2-1.2 1975-2) [facility] McKinneyFluoroscopic procedure less than one hour qpsfutmx2643-18-79 01:10:00 Test Item Value Reference Range Interpretation Comments Aspartate Amino Transf (AST/SGOT) 24 [IU]/L 5-34 (test code = Aspartate Amino Transf (AST/SGOT)) [facility] alanine aminotransferase measurement (enzymatic activity/volume)2020-07-17 01:10:00 Test Item Value Reference Range Interpretation Comments Alanine Aminotransferase (ALT/SGPT) 12 [IU]/L 0-55 (test code = 1742-6) [facility] protein measurement (mass/volume)2020-07-17 01:10:00 Test Item Value Reference Range Interpretation Comments Total Protein (test code = 2885-2) 7.1 g/dL 6.5-8.1 [facility]ere[facility] albumin measurement (mass/volume)2020-07-17 01:10:00 Test Item Value Reference Range Interpretation Comments Albumin (test code = 1751-7) 4.2 g/dL 3.5-5.0 [facility] McKinneyPlasma globulin measurement (mass/volume) 2020-07-17 01:10:00 Test Item Value Reference Range Interpretation Comments Globulin (test code = 78813-0) 2.9 g/dL 2.3-3.5 [facility] or plasma albumin/globulin mass wetfj6168-45-81 01:10:00 Test Item Value Reference Range Interpretation Comments Albumin/Globulin Ratio (test code = 1.4 0.8-2.0 1759-0) [facility] alkaline phosphatase measurement (enzymatic activity/volume)2020-07-17 01:10:00 Test Item Value Reference Range Interpretation Comments Alkaline Phosphatase (test code = 51 [IU]/L 40-150 6768-6) [facility] plasma lipase measurement (enzymatic activity/volume)2020-07-17 01:10:00 Test Item Value Reference Range Interpretation Comments Lipase (test code = 3040-3) 34 U/L 8-78 [facility]ererum heterophile antibody titer by latex qhxncoxnewsps1804-22-50 01:10:00 Test Item Value Reference Range Interpretation Comments Monoscreen (test code = 5215-9) NEGATIVE NEGATIVE [facility] McKinneyHIV 1 and 2 antibody detection qualitative by rapid oponhbrfeiz7995-51-96 01:10:00 Test Item Value Reference Range Interpretation Comments HIV (1&2) Antibody (test code = NON-REACTIVE NONREACTIVE 29955-5) [facility] McKinneyFluoroscopic procedure less than one hour gyqvvvwr4888-43-92 01:10:00 Test Item Value Reference Range Interpretation Comments HIV P24 Antigen (test code = HIV NON-REACTIVE NONREACTIVE P24 Antigen) [facility]neyBlood flqjxsk9231-62-50 01:10:00 Test Item Value Reference Range Interpretation Comments Blood Culture (test NO GROWTH AFTER 5 code = 79549793) DAYS, FINAL REPORT [facility]neyBlper[facility] leukocytes automated count (number/volume)2020-07-17 01:10:00 Test Item Value Reference Range Interpretation Comments White Blood Count (test code = 2.82 10*3/uL 4.8-10.8 6690-2) [facility]neyBlper[facility] erythrocytes automated count (number/volume)2020-07-17 01:10:00 Test Item Value Reference Range Interpretation Comments Red Blood Count (test code = 4.77 10*6/mL 4.3-5.7 789-8) [facility] McKinneyBlood hemoglobin measurement (moles/volume)2020-07-17 01:10:00 Test Item Value Reference Range Interpretation Comments Hemoglobin (test code = 31307-6) 14.9 g/dL 14.0-18.0 [facility] McKinneyAutomated blood hematocrit (volume fraction)2020-07-17 01:10:00 Test Item Value Reference Range Interpretation Comments Hematocrit (test code = 4544-3) 43.7 % 38.2-49.6 [facility] McKinneyAutomated erythrocyte mean corpuscular jihmuc0650-39-67 01:10:00 Test Item Value Reference Range Interpretation Comments Mean Corpuscular Volume (test code = 91.6 81-99 787-2) [facility] McKinneyAutomated erythrocyte mean corpuscular hemoglobin (mass per erythrocyte)2020-07-17 01:10:00 Test Item Value Reference Range Interpretation Comments Mean Corpuscular Hemoglobin (test 31.2 pg 28-32 code = 785-6) [facility] McKinneyAutomated erythrocyte mean corpuscular hemoglobin concentration measurement (mass/volume)2020-07-17 01:10:00 Test Item Value Reference Range Interpretation Comments Mean Corpuscular Hemoglobin Concent 34.1 g/dL 31-35 (test code = 786-4) [facility] McKinneyRDW XdzKr-Tka2519-01-08 01:10:00 Test Item Value Reference Range Interpretation Comments Red Cell Distribution Width (test code 11.7 % 11.7-14.4 = 46860-8) [facility] McKinneyAutomated blood platelet count (count/volume)2020-07-17 01:10:00 Test Item Value Reference Range Interpretation Comments Platelet Count (test code = 777-3) 96 10*3/uL 140-360 [facility] McKinneyAutomated blood segmented neutrophil count as percentage of total jmzenubanf6015-20-09 01:10:00 Test Item Value Reference Range Interpretation Comments Neutrophils (%) (Auto) (test code = 51.1 % 38.7-80.0 87485-9) [facility] McKinneyAutomated blood lymphocyte count as percentage ot total lwtozdcdzy9864-34-86 01:10:00 Test Item Value Reference Range Interpretation Comments Lymphocytes (%) (Auto) (test code = 37.9 % 18.0-39.1 736-9) [facility] McKinneyAutomated blood monocyte count as percentage of total snozeabppf0816-26-38 01:10:00 Test Item Value Reference Range Interpretation Comments Monocytes (%) (Auto) (test code = 11.0 % 4.4-11.3 5905-5) [facility] McKinneyAutomated blood eosinophil count as percentage of total aotdmdrofp7386-41-80 01:10:00 Test Item Value Reference Range Interpretation Comments Eosinophils (%) (Auto) (test code = 0.0 % 0.0-6.0 713-8) [facility] McKinneyAutomated blood basophil count as percentage of total iwelxnutbg0842-89-38 01:10:00 Test Item Value Reference Range Interpretation Comments Basophils (%) (Auto) (test code = 0.0 % 0.0-1.0 706-2) [facility] McKinneyFluoroscopic procedure less than one hour gwemcenk7094-64-58 01:10:00 Test Item Value Reference Range Interpretation Comments IM GRANULOCYTES % (test code = IM 0.0 % 0.0-1.0 GRANULOCYTES %) [facility] McKinneyAutomated blood neutrophil count 2020-07-17 01:10:00 Test Item Value Reference Range Interpretation Comments Neutrophils # (Auto) (test code = 1.4 2.1-6.9 751-8) [facility]number/volume) 2020-07-17 01:10:00 Test Item Value Reference Range Interpretation Comments Lymphocytes # (Auto) (test code = 1.1 1.0-3.2 86036-2) [facility]
[2021-04-18 08:32] LABS: SARS-COV-2 RT PCR NEGATIVE (NEGATIVE)
--- NOTE | 2021-04-18 09:24 | ER ---
Nurse's Notes [facility] Name: Maximilian Mattson Age: 20 yrs Sex: Male : 2000 Arrival Date: 04/18/2021 Time: 07:30 Bed Waiting Private MD: Diagnosis: Acute upper respiratory infection, unspecified Presentation: 04/18 07:33 Chief complaint: Patient states: sore throat and congestion that started yesterday. tw2 Coronavirus screen: congestion, cough unrelated to allergies, nausea, runny nose, Client presents with at least one sign or symptom that may indicate coronavirus-19. Standard/surgical mask placed on the client. Provider contacted for isolation considerations. Ebola Screen: Patient denies travel to an Ebola-affected area in the 21 days before illness onset. 07:33 Method Of Arrival: Ambulatory tw2 07:35 Initial Sepsis Screen: Does the patient meet any 2 criteria? No. Patient's initial tw2 sepsis screen is negative. Does the patient have a suspected source of infection? No. Patient's initial sepsis screen is negative. Risk Assessment: Do you want to hurt yourself or someone else? Patient reports no desire to harm self or others. Note KJ Mensah in triage room performing assessment at this time. Onset of symptoms was April 18, 2021. 07:35 Acuity: BRO 4 tw2 Triage Assessment: 07:34 General: Appears in no apparent distress. Behavior is calm, cooperative. Pain: Denies tw2 pain. EENT: Reports nasal congestion nasal discharge. Historical: - Allergies: 07:33 Amoxicillin; tw2 - Home Meds: 07:33 None [Active]; tw2 - PMHx: 07:33 None; tw2 - PSHx: 07:33 None; tw2 - Immunization history:: Adult Immunizations. - Social history:: Smoking status: Patient reports the use of cigarette tobacco products, a few cigarettes . Screenin:28 Abuse screen: Denies threats or abuse. Nutritional screening: No deficits noted. tw2 Tuberculosis screening: No symptoms or risk factors identified. Fall Risk None identified. Assessment: 07:36 Reassessment: Patient appears in no apparent distress at this time. marilu Mensah. Respiratory: Airway is patent Respiratory effort is even, unlabored, n/a Bree Ibanez< KJ. EENT: Throat is reddened. 07:45 Reassessment: swab performed in triage room. Merrick MILLER taking to lab at this time. tw2 09:28 Reassessment: Patient appears in no apparent distress at this time. No changes from tw2 previously documented assessment. Patient and/or family updated on plan of care and expected duration. Pain level reassessed. Patient is alert, oriented x 3, equal unlabored respirations, skin warm/dry/pink. Vital Signs: 07:35 BP 106 / 69; Pulse 69; Resp 18; Temp 97.2(TE); Pulse Ox 100% on R/A; tw2 ED Course: 07:30 Patient arrived in ED. as 07:30 Bree Ibanez [facility]-C [facility] kb 07:30 Zhao Curry MD is Attending Physician. kb 07:34 Arm band placed on. tw2 07:35 Triage completed. tw2 09:28 No provider procedures requiring assistance completed. Patient did not have IV access tw2 during this emergency room visit. 09:29 na. tw2 Administered Medications: No medications were administered Outcome: 09:24 Discharge ordered by . kb 09:29 Discharged to home ambulatory. tw2 09:29 Condition: stable 09:29 Discharge instructions given to patient, Instructed on discharge instructions, follow up and referral plans. Demonstrated understanding of instructions, follow-up care. 09:29 Patient left the ED. tw2 Signatures: Bree Ibanez FNP-C FNP-Ckb Martinez, Amelia as Olena Dinh, RN RN tw2
--- NOTE | 2021-04-18 09:24 | EDPHYS ---
Physician Documentation [facility] Name: Maximilian Mattson Age: 20 yrs Sex: Male : 2000 Arrival Date: 04/18/2021 Time: 07:30 Bed Waiting Private MD: ED Physician Zhao Curry HPI: 04/18 10:50 This 20 yrs old Black Male presents to ER via Ambulatory with complaints of Sore kb Throat, Nasal Congestion. 10:50 The patient has not experienced similar symptoms in the past. The patient has not kb recently seen a physician. 10:50 The patient or guardian reports cough, that is intermittent, described as mild. Onset: kb The symptoms/episode began/occurred yesterday. Severity of symptoms: At their worst the symptoms were moderate, in the emergency department the symptoms are unchanged. Modifying factors: The symptoms are alleviated by nothing, the symptoms are aggravated by nothing. Associated signs and symptoms: Pertinent positives: rhinorrhea, sore throat, Pertinent negatives: chest pain, diarrhea, ear ache, fever, nausea, vomiting. Pt reports sore throat, cough and congestion since yesterday. Historical: - Allergies: 07:33 Amoxicillin; tw2 - Home Meds: 07:33 None [Active]; tw2 - PMHx: 07:33 None; tw2 - PSHx: 07:33 None; tw2 - Immunization history:: Adult Immunizations. - Social history:: Smoking status: Patient reports the use of cigarette tobacco products, a few cigarettes . ROS: 10:49 Constitutional: Negative for fever, chills, and weight loss. kb 10:49 ENT: Positive for rhinorrhea, sinus congestion, sore throat. 10:49 Respiratory: Positive for cough, Negative for dyspnea on exertion, hemoptysis, orthopnea, pleurisy, shortness of breath, sputum production, wheezing. 10:49 All other systems are negative. Exam: 10:49 Constitutional: This is a well developed, well nourished patient who is awake, alert, kb and in no acute distress. Head/Face: Normocephalic, atraumatic. ENT: Moist Mucous membranes Cardiovascular: Regular rate and rhythm with a normal S1 and S2. No gallops, murmurs, or rubs. No pulse deficits. Respiratory: Respirations even and unlabored. No increased work of breathing, no retractions or nasal flaring. Skin: Warm, dry with normal turgor. Normal color. MS/ Extremity: Pulses equal, no cyanosis. Neurovascular intact. Full, normal range of motion. Neuro: Awake and alert, GCS 15, oriented to person, place, time, and situation. Moves all extremities. Normal gait. Psych: Awake, alert, with orientation to person, place and time. Behavior, mood, and affect are within normal limits. Vital Signs: 07:35 BP 106 / 69; Pulse 69; Resp 18; Temp 97.2(TE); Pulse Ox 100% on R/A; tw2 MDM: 07:35 Patient medically screened. kb 09:23 Data reviewed: vital signs, nurses notes. Data interpreted: Pulse oximetry: on room air kb is 100 %. Interpretation: normal. Counseling: I had a detailed discussion with the patient and/or guardian regarding: the historical points, exam findings, and any diagnostic results supporting the discharge/admit diagnosis, lab results, the need for outpatient follow up, a family practitioner, to return to the emergency department if symptoms worsen or persist or if there are any questions or concerns that arise at home. 04/18 07:36 Order name: Strep; Complete Time: 09:23 kb 04/18 08:32 Order name: COVID-19/FLU A+B; Complete Time: 08:36 EDMS 04/18 09:19 Order name: Throat Culture EDHI Administered Medications: No medications were administered Disposition Summary: 04/18/21 09:24 Discharge Ordered Location: Home kb Condition: Stable kb Diagnosis - Acute upper respiratory infection, unspecified kb Followup: kb - With: Private Physician - When: 2 - 3 days - Reason: Recheck today's complaints, Continuance of care, Re-evaluation by your physician Followup: kb - With: Emergency Department - When: As needed - Reason: Worsening of condition Discharge Instructions: - Upper Respiratory Infection, Adult, [id number] kb - Viral Respiratory Infection, [id number] kb - Discharge Summary Sheet tw2 Forms: - Medication Reconciliation Form kb - Thank You Letter kb - Antibiotic Education kb - Work release form tw2 - Prescription Opioid Use kb Addendum: 04/20/2021 07:15 Co-signature as Attending Physician, Zhao Curry MD. r n Signatures: Dispatcher [employer] EDBree Kerr FNP-C THRASHER FEEDER-Ckb Zhao Curry MD MD rn DinhOlena RN RN tw2 Corrections: (The following items were deleted from the chart) 04/18 07:53 07:36 CORONAVIRUS+BRZ ordered. EDMS EDMS
[2021-04-18 09:34] VITALS: BP 106/69; TEMP 97.2; O2SAT 100
== END 2021-04-18 09:29 | disposition home or self-care (01) ==
LOC: ER 07:28
DX: J06.9 Acute upper respiratory infection, unspecified (principal); F17.210 Nicotine dependence, cigarettes, uncomplicated; Z88.0 Allergy status to penicillin; Z20.822 Contact with and (suspected) exposure to COVID-19
CPT/HCPCS: 0240U; 87070; 87081; 99281